=== PATIENT | female | born 1960 | race Caucasian/White ===

== ENCOUNTER 2020-07-05 12:49 | Outpatient (REF) | payer MEDICAID, SELFPAY ==
--- NOTE | ~2020-07-05 | MM_ITS ---
EXAMINATION: MM SCREENING DIGITAL BREAST TOMOSYNTHESIS, BILATERAL CLINICAL INFORMATION: Screening. Asymptomatic. Left lumpectomy for breast cancer 2007. Due for yearly. COMPARISON: Mammography: 10/28/2018, 10/21/2017, 05/13/2017, 10/19/2016, 10/12/2015 TECHNIQUE: Digital breast tomosynthesis is performed in both the craniocaudal and mediolateral oblique views along with computer-aided detection (CAD). Synthesized 2D images are generated from the tomosynthesis. FINDINGS: There are scattered areas of fibroglandular density (ACR BI-RADS breast composition Category b). There are no significant masses, abnormal calcifications, or other abnormalities. There is mild reduced breast size, mild stable scarring, and surgical clips left breast consistent with the clinical history. No developing density. No significant changes from prior studies. MM/MM tomosynthesis screening BI IMPRESSION: No mammographic evidence of malignancy. Stable post therapy changes left breast. ASSESSMENT: BI-RADS 2: Benign RECOMMENDATION: Routine annual mammography screening. This patient's information was entered into a reminder system with a target due date for their next mammogram.
== END 2020-07-05 12:50 | disposition home or self-care (01) ==
LOC: HO.MAMMO 12:49
PROVIDERS: PCP Nurse Practitioner Family; Visit Provider Nurse Practitioner Family
DX: Z12.31 Encounter for screening mammogram for malignant neoplasm of breast (principal)
CPT/HCPCS: 77063; 77067

== ENCOUNTER 2021-09-12 09:05 | Outpatient (REF) | payer MEDICAID, SELFPAY ==
--- NOTE | ~2021-09-12 | MM_ITS ---
EXAMINATION: MM SCREENING DIGITAL BREAST TOMOSYNTHESIS, BILATERAL CLINICAL INFORMATION: Left lumpectomy for breast cancer, 2007. Due for yearly. Screening. COMPARISON: Mammography: 07/05/2020, 10/28/2018, 10/21/2017, 05/13/2017, 10/19/2016 TECHNIQUE: Digital breast tomosynthesis is performed in both the craniocaudal and mediolateral oblique views along with computer-aided detection (CAD). Synthesized 2D images are generated from the tomosynthesis. Additional right MLO view is provided. FINDINGS: There are scattered areas of fibroglandular density (ACR BI-RADS breast composition Category b). There is no significant change from prior studies. There are post therapy changes again noted on the left with reduced breast size, surgical clips, and minor stable scarring. Neither breast shows interval mass or developing density. No abnormal calcifications. No significant changes. MM/MM tomosynthesis screening BI IMPRESSION: -No mammographic evidence of malignancy. -Post therapy changes left breast, stable. ASSESSMENT: BI-RADS 2: Benign RECOMMENDATION: Routine annual mammography screening. This patient's information was entered into a reminder system with a target due date for their next mammogram.
== END 2021-09-12 09:06 | disposition home or self-care (01) ==
LOC: HO.MAMMO 09:05
PROVIDERS: Visit Provider Internal Medicine
DX: Z12.31 Encounter for screening mammogram for malignant neoplasm of breast (principal)
CPT/HCPCS: 77063; 77067

== ENCOUNTER 2023-01-01 10:55 | Outpatient (REF) | payer MEDICAID, SELFPAY ==
--- NOTE | ~2023-01-01 | XR_ITS ---
EXAMINATION: XR ANKLE, RIGHT CLINICAL INFORMATION: Swelling Swelling for one week COMPARISON: None available. TECHNIQUE: AP, lateral, and mortise views of the right ankle. FINDINGS: There is soft tissue swelling about the ankle. The bones are intact. Alignment is anatomic. The ankle mortise is well-maintained. No erosions. Mild degenerative change of some of the tarsal-tarsal joints. There is a large posterior plantar calcaneal spur and small Achilles enthesophyte. XR/XR ankle RT min 3V IMPRESSION: 1. No acute bony abnormality. 2. Large posterior plantar calcaneal spur.
== END 2023-01-01 10:56 | disposition home or self-care (01) ==
LOC: HO.HHCX 10:55
PROVIDERS: Visit Provider Nurse Practitioner Family
DX: M25.571 Pain in right ankle and joints of right foot (principal)
CPT/HCPCS: 73610

== ENCOUNTER 2023-01-01 11:06 | Outpatient (REF) | payer MEDICAID, SELFPAY ==
[2023-01-01 13:46] LABS: Alanine Aminotransferase 25 U/L (0-31); Albumin Level 4.5 g/dL (3.5-5.0); Alkaline Phosphatase 108 U/L (39-117); Anion Gap 12 (12-20); Aspartate Amino Transferase 23 U/L (5-31); Bilirubin Total 0.2 mg/dL (0.0-1.0); Blood Urea Nitrogen 14 mg/dL (9-16); Calcium 10.1 mg/dL (8.4-10.2); Carbon Dioxide 25 mmol/L (22-29); Chloride 108 mmol/L (96-108); Cholesterol 225 mg/dL; Estimated Glomerular Filt Rate > 60; Glucose Random 84 mg/dL (60-115); HDL Cholesterol 60 mg/dL; LDL Cholesterol Calculated 147 mg/dl; Potassium 3.9 mmol/L (3.3-5.1); Sodium 141 mmol/L (135-145); Total Protein 7.4 g/dL (6.5-8.0); Triglycerides 91 mg/dL
[2023-01-01 14:06] LABS: Thyroid Stimulating Hormone 4.26 uIU/mL (0.32-4.0)
== END 2023-01-01 11:07 | disposition home or self-care (01) ==
LOC: HO.HHCL 11:06
PROVIDERS: Visit Provider Nurse Practitioner Family
DX: Z00.00 Encounter for general adult medical examination without abnormal findings (principal); E03.8 Other specified hypothyroidism
CPT/HCPCS: 36415; 80053; 80061; 84443

== ENCOUNTER 2023-02-01 15:00 | Inpatient (IN) | payer MEDICAID, OTHER, SELFPAY ==
--- NOTE | 2023-02-01 15:05 | MHC.CARE ---
Call from [facility] clinician, Mahsa, patient has been evaluated in the community (no meds x1 week and decompensated) sent to [facility] ED to wait for an inpatient psychiatric placement.
--- NOTE | 2023-02-01 15:22 | ED_ITS ---
HPI - Psych General Chief Complaint: Psychiatric Symptoms Stated Complaint: SI & HI, non med compliant Time Seen by Provider: 02/01/23 15:13 Source: patient, EMS, RN notes reviewed and old records reviewed Mode of arrival: EMS History of Present Illness HPI Narrative: 62-year-old female with a past medical history of unspecified schizophrenia presenting to the ED via EMS on Section 12 from home due to medication noncompliance, SI & HI towards family. Per EMS patient decompensates quickly. Patient denies SI at present however reports SI towards family. Denies plan. Also admits to auditory and visual hallucinations. Denies ETOH or other illicit drug use. Denies CP/ SOB, abdominal pain, nausea/vomiting Related Data Home Medications Medication Instructions Recorded Confirmed olanzapine 20 mg tablet (Zyprexa) 20 mg PO BEDTIME 02/01/23 02/01/23 trihexyphenidyl 2 mg tablet 2 mg PO BID 02/01/23 02/01/23 Allergies Allergy/AdvReac Type Severity Reaction Status Date / Time cephalexin Allergy Unknown Verified 05/13/16 00:00 metronidazole Allergy Unknown Verified 05/13/16 00:00 No Known Allergies Allergy Unverified 02/01/20 15:26 [No Known Allergies*] monohydrate Allergy Unknown Uncoded 05/13/16 00:00 Review of Systems Review of Systems: Constitutional: No Fever, No Chills, No Fatigue, No Malaise ENT/Mouth: No Ear Pain, No sore throat, No Rhinorrhea, No Swallowing Difficulty Eyes: No Eye Pain, No Swelling, No Redness Cardiovascular: No Chest Pain, No SOB Respiratory: No Cough Gastrointestinal: No Nausea, No Vomiting, No Diarrhea, No Constipation, No Abdominal pain Musculoskeletal: No joint pain, No Myalgias, No Joint Swelling Skin: No Skin Lesions, No rash Neuro: No Weakness Psych: No Anxiety/Panic, No Depression, + SI/HI/AH/VH, + Social Issues Yes all other systems are reviewed and are negative Constitutional: Constitutional: Reports as per HPI [facility] Past Medical History Attestation statement: The following information was validated with the patient. Source: old records reviewed Social History Social History Alcohol intake: former Smoked in Last 30 Days: No Use of substances other than those prescribed or required for medical reasons: No Advance Directives: No Advance Directives Information Provided: No Physical Exam Vital Signs: Vital Signs: Last Vital Signs Temp 97 F 02/01/23 15:39 Pulse 73 02/01/23 15:39 Resp 18 02/01/23 15:39 BP 170/72 H 02/01/23 15:39 Pulse Ox 99 02/01/23 15:39 O2 Del Method Room Air 02/01/23 15:39 BMI result Body Mass Index 30.8 Const: General: cooperative, healthy appearing and no acute distress Orientation/consciousness: patient oriented x3 Limitations: no limitations HEENT: Head: Yes normal to inspection and Yes atraumatic Ears: hearing grossly normal bilaterally General nose exam: Normal external nose present Face and sinus: Yes normal facial exam Eyes: General: appearance normal, both eyes and all related structures EOM: EOMs intact bilaterally Neck: Neck: Yes normal visual inspection and Yes no meningeal signs Resp: Effort & Inspection: normal respiratory effort and no respiratory distress Cardio: Rate: regular rate GI: Inspection: Yes normal to inspection Palpation (GI): Soft to palpation, nontender, no guarding and not rigid Skin: Rashes: no rashes Wounds: no wounds Neuro: General: patient oriented x3, tone normal, moves all extremities, no meningeal signs, no focal motor deficits and CN's II-XI intact bilaterally Cranial nerves: Yes CN's II-XII intact bilaterally Extrem: General: Yes normal to inspection Psych: Attitude: cooperative Thought content: suicidality, Homicidality present and Hallucination(s) present Insight: Poor insight present (Psych) Course Course Course Narrative: -1630-- ED care transferred to [facility] pending labs, tox screen, and CARE team consult Medical Decision Making Medical Decision Making MDM Narrative: 62-year-old female with a past medical history of unspecified schizophrenia presenting to the ED via EMS on Section 12 from home due to medication noncompliance, SI & HI towards family. On exam vital signs stable, NAD, talking to self/responding to hallucinations during evaluation, denies SI present, admits to HI/AH/VH. Concern for medication noncompliance vs schizophrenia. rule out organic causes plan: Labs, tox screen, UA, CARE team consult Please refer to course for remaining clinical decision making, interpretation of labs/imaging results, and discussions with consultants and/or family members. Differential Diagnosis Differential Diagnoses: The differential diagnosis associated with the p resentation includes As above Admission/Observation Consideration of admission/observation: Escalation of care including admiss ion/observation considered Consult Healthcare Provider Management of the patient was discussed with: Behavioral Health Provider Lab Data [facility] Lab Attestation statement: I reviewed the patient's lab results. Labs: Lab Results 02/01/23 02/01/23 Range/Units 16:03 16:09 Urine Color Yellow Cancelled Urine Appearance Clear Cancelled Urine pH 5.5 Cancelled (5.0-9.0) Ur Specific [place] 1.010 Cancelled (1.005-1.025) Urine Protein Negative Cancelled (Neg-Trace) mg/dL Urine Glucose (UA) Negative Cancelled (Negative) mg/dL Urine Ketones Negative Cancelled (Negative) mg/dL Urine Blood Negative Cancelled (Negative) Urine Nitrite Negative Cancelled (Negative) Ur Leukocyte Esterase Trace H Cancelled (Negative) Radiology Impression Discussion of test interpretation with radiology: I have reviewed the radiologist's reading. Independent Historian Clinical information obtained from an independent historian. History obtained from or confirmed by: EMS External Record Review External record reviewed: Inpatient record, Office record, Outpatient record, Prior outpatient labs, Prior outpatient radiology, Primary care record and Outside ED record Tests considered The following testing was considered but not selected: As above Chronic Conditions Patient?s care impacted by: Other ( schizophrenia) Social Determinants Patient?s care significantly limited by Social Determinants of Health including: Problems related to primary support group and Other Social Determinant of Health Discharge Plan Discharge Clinical Impression: Chronic schizophrenia, Homicidal ideations, Hallucinations Patient Disposition: Still a Patient Prescriptions: No Action trihexyphenidyl 2 mg tablet 2 mg PO BID olanzapine [Zyprexa] 20 mg tablet 20 mg PO BEDTIME Interventions: [place]-Suicide Risk Severity Scale Last Done: 02/01/23 15:41
[2023-02-01 15:35] VITALS: BP 170/84; PULSE 72; O2SAT 99
--- NOTE | 2023-02-01 15:37 | PC.NURSE ---
Patient arrived from ems on a section 12 after not taking medications x 1 week. Per family patient decompensates quickly when she doesn't take her meds. Reports SI and HI. Reports wanting to harm neighbors that live upstairs from her. Reports having auditory and visual hallucinations. Denies pain or discomfort.
[2023-02-01 15:39] VITALS: BP 170/72; PULSE 73; RESP 18; TEMP 36.1; O2SAT 99; BMI 30.8
--- NOTE | 2023-02-01 15:59 | PC.NURSE ---
Attempted to call emergency contact, Francesca stating doesnt speak Indonesian, call placed to adjunct instructor chemistry services to help translate
[2023-02-01 16:20] LABS: Appearance Urine Clear; Color Urine Yellow; Glucose Urine UA Negative (Negative); Leukocyte Esterase Urine Trace (Negative); Nitrite Urine Negative (Negative); PH 5.5 (5.0-9.0); UMIC TRIGGER UACC YES; Urine Blood Negative (Negative); Urine Ketones Negative (Negative); Urine Protein Negative (Neg-Trace)
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
[2023-02-01 16:26] LABS: Amphetamine Screen Urine Not Detected (Not Detect); Bacteria Urine None Seen (None Seen); Barbiturates, Urine Not Detected (Not Detect); Benzodiazepines Screen Urine Not Detected (Not Detect); Cannabinoid Screen Urine Not Detected (Not Detect); Cocaine Screen Urine Not Detected (Not Detect); Fentanyl, urine Not Detected (Not Detect); Hyaline Casts Urine 0-2 /LPF (0-2); Opiate Screen Urine Not Detected (Not Detect); Phencyclidine Screen Urine Not Detected (Not Detect); RBC Urine 0-2 /HPF (0-2); Squamous Epithelial Cell Urine 0-2 /HPF (0-2); WBC Urine 0-5 /HPF (0-5)
[2023-02-01 16:34] LABS: MANUAL DIFF FLAG NO
[2023-02-01 16:45] LABS: Basophils Percent Auto 0.4 % (0-2); Eosinophils Absolute Auto 0.1 X10*3/uL (0.0-0.4); Eosinophils Percent Auto 1.7 % (0-4); Hematocrit 44.1 % (37.0-47.0); Imm Gran Abs Auto 0.03 X10*3/uL (0.00-0.03); Imm Gran Pct Auto 0.4 % (0.0-0.4); Lymphocytes Absolute Auto 2.1 X10*3/uL (1.2-4.9); Lymphocytes Percent Auto 28.4 % (20-40); Mean Corpuscular HGB Conc 31.7 g/dl (31.0-35.0); Mean Corpuscular Volume 75.6 fL (80.0-98.0); Mean Platelet Volume 9.8 fL (9.4-12.3); Monocytes Absolute Auto 0.4 X10*3/uL (0.1-1.2); Monocytes Percent Auto 4.8 % (2-11); Neutrophils Absolute Auto 4.8 x10*3/uL (2.0-8.3); Neutrophils Percent Auto 64.3 % (45-73); Platelet Count 320 X10*3/uL (160-400); Red Blood Count 5.83 X10*6/uL (4.20-5.50); White Blood Count 7.4 X10*3/uL (4.8-10.8)
[2023-02-01 16:53] LABS: Alanine Aminotransferase 24 U/L (0-31); Albumin Level 4.6 g/dL (3.5-5.0); Alkaline Phosphatase 97 U/L (39-117); Anion Gap 11 (12-20); Aspartate Amino Transferase 24 U/L (5-31); Bilirubin Total 0.2 mg/dL (0.0-1.0); Blood Urea Nitrogen 10 mg/dL (9-16); Calcium 9.9 mg/dL (8.4-10.2); Carbon Dioxide 27 mmol/L (22-29); Chloride 105 mmol/L (96-108); Estimated Glomerular Filt Rate > 60; Ethanol < 10 mg/dL; Glucose Random 128 mg/dL (60-115); Potassium 3.5 mmol/L (3.3-5.1); Sodium 139 mmol/L (135-145); Total Protein 7.5 g/dL (6.5-8.0)
[2023-02-01 16:54] LABS: Acetaminophen LAB < 17 mcg/mL (<30); Salicylate < 5.0 mg/dL (15-30)
--- NOTE | 2023-02-01 16:54 | PC.NURSE ---
Patient with non-pitting edema to right ankle, denies pain. Patient with dirt on bottom of both feet. Patient reports does not re call when she showered last
[2023-02-01 21:49] LABS: COVID-19 Test Negative (Negative); IDNOW Serial# BCCEAD1C
--- NOTE | 2023-02-02 | ECG_ITS ---
Test Reason : ASSESS QT INTERVAL Blood Pressure : / mmHG Vent. Rate : 068 BPM Atrial Rate : 068 BPM P-R Int : 160 ms QRS Dur : 094 ms QT Int : 406 ms P-R-T Axes : 051 -16 -05 degrees QTc Int : 431 ms Normal sinus rhythm Incomplete right bundle branch block Borderline ECG When compared with ECG of 15-NOV-2009 13:06, Nonspecific T wave abnormality is no longer Present Referred By: Warren Candelaria Electronically Signed By:HORTENCIA COFFMAN
--- NOTE | 2023-02-02 05:46 | PC.NURSE ---
Patient slept through the night, no distress observed/reported, behavior non concerning, disposition per [facility] is section 12 inpatient bed search, labs completed/resulted, medication re completed/pending provider's approval, Pre-accepted to for 02/02/23 per care team, VSS, will continue to monitor.
[2023-02-02 06:50] VITALS: BP 130/60; PULSE 55; RESP 17; TEMP 36.4; O2SAT 99
--- NOTE | 2023-02-02 07:25 | PC.NURSE ---
patient appears to remain asleep at present respirations are even and unlabored patient appears in no distress
[2023-02-02 13:52] VITALS: BP 140/61; PULSE 86; RESP 16; TEMP 36.6; O2SAT 97
[2023-02-02 14:00] VITALS: BP 131/76; PULSE 79; RESP 16; TEMP 36.4; O2SAT 96
[2023-02-02 18:00] VITALS: BP 143/70; PULSE 79; RESP 18; TEMP 36.2; O2SAT 98
[2023-02-02] MEDS: Trihexyphenidyl HCL 2 MG TABLET PO (22:18)
[2023-02-02] MEDS: traZODone HCL 50 MG TABLET PO (22:18)
[2023-02-02] MEDS: OLANZapine 10 MG TABLET 20 MG PO (22:18)
[2023-02-03 08:09] LABS: Alanine Aminotransferase 17 U/L (0-31); Albumin Level 3.8 g/dL (3.5-5.0); Alkaline Phosphatase 78 U/L (39-117); Anion Gap 11 (12-20); Aspartate Amino Transferase 18 U/L (5-31); Bilirubin Total 0.3 mg/dL (0.0-1.0); Blood Urea Nitrogen 13 mg/dL (9-16); Calcium 9.1 mg/dL (8.4-10.2); Carbon Dioxide 24 mmol/L (22-29); Chloride 111 mmol/L (96-108); Cholesterol 193 mg/dL (<200); Creatinine Clr Calc Pharmacy 91.4; Estimated Glomerular Filt Rate > 60; Glucose Fasting 92 mg/dL (60-99); HDL Cholesterol 52 mg/dL (>40); LDL Cholesterol Calculated 125 mg/dL (<100); Potassium 4.2 mmol/L (3.3-5.1); Sodium 142 mmol/L (135-145); Total Protein 6.4 g/dL (6.5-8.0); Triglycerides 82 mg/dL (<150)
[2023-02-03] MEDS: Trihexyphenidyl HCL 2 MG TABLET PO ×2 (08:44→20:47)
[2023-02-03 08:47] VITALS: BP 103/62; PULSE 57; RESP 16; TEMP 36.5; O2SAT 95
[2023-02-03 16:04] VITALS: BP 137/61; PULSE 81; RESP 16; TEMP 36.5; O2SAT 99
--- NOTE | 2023-02-03 18:36 | HO.PSYADMNOT ---
HPI Date of Service: 02/03/23 Chief Complaint: schizophrenia hallucinations hi toward family Sources of Information: patient interviewed, chart reviewed and crisis/core team assessment reviewed HPI Subjective Notes: Day Warning and Conditional Voluntary Narrative: Seen with physician office assistant Patient is a 62-year-old female, Beninese-speaking only, with history of schizophrenia who presents for dysregulated behavior, SI and HI, delusional thoughts in the face of going off her medication. Patient reports that she stop taking her pills and so the visiting nurse called the ambulance... [employer] Operator... She says I through the pills away...not taking them... I get scared and I do not take them... She had trouble saying what she was scared about, but mentioned that her mother bothers her at night while she sleeping and she does not like it; she then said that there was something on her head that made her feel scared, touching her head... Care team note reports that in the community patient said she wanted to shoot [her] mother and daughter... And also was banging her head on the wall a few times. Patient acknowledged that she had homicidal ideation towards her mother but no longer has them at all; she said she did have suicidal thoughts but no longer has them at all. She reports auditory hallucinations but said it is only mumbles and she cannot make out what things are said. Patient is amenable to restarting her Zyprexa now. Past Psychiatric History: History of past psychiatric hospitalizations; history of non adherence with medication and decompensation Medical Evaluation Reviewed: Yes PMFSH Family History: Deferred; patient limited historian Social History: Patient's mother is supportive and involved Substance History: Denied Trauma History: Deferred; patient limited historian Diagnostics Vital Signs (24Hr): Vital Signs - 24 hr 02/03/23 08:47 02/03/23 16:04 Temperature 97.7 F 97.7 F Pulse Rate 57 81 Respiratory Rate 16 16 Blood Pressure 103/62 137/61 Pulse Oximetry 95 99 Oxygen Delivery Method Room Air Room Air BMI result Body Mass Index 30.8 Labs 02/01/23 16:27 02/03/23 07:18 Labs: Laboratory Results - last 48 hr 02/01/23 02/03/23 21:14 07:18 Sodium 142 Potassium 4.2 Chloride 111 H Carbon Dioxide 24 Anion Gap 11 L BUN 13 Creatinine 0.70 Estim Creat Clear Calc 91.4 Estimated GFR > 60 Fasting Glucose 92 Calcium 9.1 D Total Bilirubin 0.3 AST 18 ALT 17 Alkaline Phosphatase 78 Total Protein 6.4 L Albumin 3.8 Triglycerides 82 Cholesterol 193 LDL Cholesterol, Calc 125 H HDL Cholesterol 52 COVID-19 ([facility]) Negative COVID-19 Clin Com See Note Meds/Allergies Meds Home Medications Medication Instructions Recorded Confirmed Type olanzapine 20 mg tablet (Zyprexa) 20 mg PO BEDTIME 02/01/23 02/01/23 History trihexyphenidyl 2 mg tablet 2 mg PO BID 02/01/23 02/01/23 History Allergies Allergies Allergy/AdvReac Type Severity Reaction Status Date / Time cephalexin Allergy Unknown Verified 05/13/16 00:00 metronidazole Allergy Unknown Verified 05/13/16 00:00 No Known Allergies Allergy Unverified 02/01/20 15:26 [No Known Allergies*] monohydrate Allergy Unknown Uncoded 05/13/16 00:00 Mental Status Exam Mental Status Exam Narrative: Pt is alert and oriented; behavior is cooperative, friendly and calm; some chorea type arm movements; patient is not in distress; dressed in casual attire with unkempt hair but adequate hygiene; mood is described as good though affect blunted; eye contact appropriate; Speech is normal rate, volume and prosody and not pressured; no psychomotor agitation/retardation present; thought process is goal oriented to some degree but also gets disorganized, making extraneous comments; Thought content is somewhat vacuous; some delusional/paranoid thinking; denies any SI/HI. Internally preoccupied; positive for Patients insight and judgment impaired Assessment & Plan Assessment & Plan (1) Chronic schizophrenia: Status: Acute Code(s): F20.9 - Schizophrenia, unspecified Plan Seen with physician office assistant Patient is a 62-year-old female, Beninese-speaking only, with history of schizophrenia who presents for dysregulated behavior, SI and HI, delusional thoughts in the face of going off her medication. Patient reports that she stop taking her pills and so the visiting nurse called the ambulance... [employer] Operator... She says I through the pills away...not taking them... I get scared and I do not take them... She had trouble saying what she was scared about, but mentioned that her mother bothers her at night while she sleeping and she does not like it; she then said that there was something on her head that made her feel scared, touching her head... Care team note reports that in the community patient said she wanted to shoot [her] mother and daughter... And also was banging her head on the wall a few times. Patient acknowledged that she had homicidal ideation towards her mother but no longer has them at all; she said she did have suicidal thoughts but no longer has them at all. She reports auditory hallucinations but said it is only mumbles and she cannot make out what things are said. Patient is amenable to restarting her Zyprexa now. Patient amenable to team gather collateral Impression; chronic psychotic illness with history of noncompliance and decompensation causing current presentation. Will restart patient on Zyprexa; if possible will see if can find out medication trials and whether not a long-acting injectable is an option Plan: CV Q 15 minute checks Restart Zyprexa 20 mg q.h.s. restart Trihexphenidyl 2mg BID Gather collateral Patient educated on: diagnosis and medication risk/benefits Informed Consent: understands and further education needed Reason for continued inpatient stay Substantial Risk for: rapid decompensation Statement Statement: I have reviewed the history and physical and performed a pertinent examination on my patient. No changes have occurred unless specified. If the History and Physical was not performed prior to admission, the Hospitalist's service will be consulted for completing the admission physical. Time Spent With Patient Time: Total time managing care of this patient today ____ minutes.
[2023-02-03] MEDS: OLANZapine 10 MG TABLET 20 MG PO (20:47)
[2023-02-04 07:00] VITALS: BMI 29.4
[2023-02-04] MEDS: Trihexyphenidyl HCL 2 MG TABLET PO ×2 (08:52→19:43)
[2023-02-04 08:55] VITALS: BP 142/67; PULSE 64; RESP 18; TEMP 36.3; O2SAT 96
--- NOTE | 2023-02-04 10:45 | P.PNPSI_ITS ---
Subjective Subjective Date of Service: 02/04/23 Reason For Visit: schizophrenia hallucinations hi toward family Interim History: Saw with electromechanical assembler Met with patient; discussed with team Patient reports she is feeling good today and better than yesterday. She says she has no thoughts of hitting anyone, hurting herself or anyone else. She denies any auditory hallucinations. Discussed having a VNA and patient said it was helpful. Patient's daughter called and spoke with perinatal social worker. Said that her mother is normally stable, functional able to live on her own in the community when she was having a visiting nurse come and deliver medications daily up. She reports that a month or so ago VNA started putting her medications in a lock box and since then her mother has started to decompensate; he came to her daughter's attention that patient was taking medication and throwing them outside. She says that aside from this incident where her mother expressed violent thoughts, she has never harmed anyone or been aggressive with anyone or herself. Mental Status Exam Mental Status Exam Narrative: Pt is alert and oriented; behavior is cooperative, friendly and calm; some chorea type arm movements; patient is not in distress; dressed in casual attire with unkempt hair but adequate hygiene; mood is described as good though affect blunted; eye contact appropriate; Speech is normal rate, volume and prosody and not pressured; no psychomotor agitation/retardation present; thought process is goal oriented; today no extraneous comments made; Thought content is somewhat vacuous; no delusional thinking expressed; denies any SI/HI. Denies AVH Patients insight and judgment impaired but improving Diagnostics Vital Signs (24Hr): Vital Signs - 24 hr 02/03/23 16:04 02/04/23 08:55 Temperature 97.7 F 97.3 F Pulse Rate 81 64 Respiratory Rate 16 18 Blood Pressure 137/61 142/67 H Pulse Oximetry 99 96 Oxygen Delivery Method Room Air Room Air BMI result Body Mass Index 29.4 Labs 02/01/23 16:27 02/03/23 07:18 Labs: Laboratory Results - last 48 hr 02/03/23 07:18 Sodium 142 Potassium 4.2 Chloride 111 H Carbon Dioxide 24 Anion Gap 11 L BUN 13 Creatinine 0.70 Estim Creat Clear Calc 91.4 Estimated GFR > 60 Fasting Glucose 92 Calcium 9.1 D Total Bilirubin 0.3 AST 18 ALT 17 Alkaline Phosphatase 78 Total Protein 6.4 L Albumin 3.8 Triglycerides 82 Cholesterol 193 LDL Cholesterol, Calc 125 H HDL Cholesterol 52 Medications Medications Current Medications Acetaminophen (Acetaminophen 325 Mg Tablet) 650 mg PO Q6H PRN PRN Reason: Headache/Pain Mild Scale (1-3) Al Hydroxide/Mg Hydroxide (Magnesium Hydrox/Alum Hydrox 30 Ml Oral.Susp) 30 ml PO Q6H PRN PRN Reason: Heartburn/Nausea Hydroxyzine HCl (Hydroxyzine Hcl 25 Mg Tablet) 25 mg PO Q6H PRN PRN Reason: Anxiety Magnesium Hydroxide (Milk Of Magnesia 30 Ml Oral.Susp) 30 ml PO DAILY PRN PRN Reason: Constipation Olanzapine (Olanzapine 10 Mg Tablet) 20 mg PO BEDTIME NICKOLAS Last Admin: 02/03/23 20:47 Dose: 20 mg Trazodone HCl (Trazodone Hcl 50 Mg Tablet) 50 mg PO BEDTIME MRX1 PRN PRN Reason: Insomnia Last Admin: 02/02/23 22:18 Dose: 50 mg Trihexyphenidyl HCl (Trihexyphenidyl Hcl 2 Mg Tablet) 2 mg PO BID NICKOLAS Last Admin: 02/04/23 08:52 Dose: 2 mg Allergies Allergies Allergy/AdvReac Type Severity Reaction Status Date / Time cephalexin Allergy Unknown Verified 05/13/16 00:00 metronidazole Allergy Unknown Verified 05/13/16 00:00 No Known Allergies Allergy Unverified 02/01/20 15:26 [No Known Allergies*] monohydrate Allergy Unknown Uncoded 05/13/16 00:00 Assessment & Plan Assessment & Plan (1) Chronic schizophrenia: Status: Acute Code(s): F20.9 - Schizophrenia, unspecified Plan Seen with electromechanical assembler Patient is a 62-year-old female, Arabic-speaking only, with history of schizophrenia who presents for dysregulated behavior, SI and HI, delusional thoughts in the face of going off her medication. Patient reports that she stop taking her pills and so the visiting nurse called the ambulance... Pharmacy Graduate Intern... She says I through the pills away...not taking them... I get scared and I do not take them... She had trouble saying what she was scared about, but mentioned that her mother bothers her at night while she sleeping and she does not like it; she then said that there was something on her head that made her feel scared, touching her head... Care team note reports that in the community patient said she wanted to shoot [her] mother and daughter... And also was banging her head on the wall a few times. Patient acknowledged that she had homicidal ideation towards her mother but no longer has them at all; she said she did have suicidal thoughts but no longer has them at all. She reports auditory hallucinations but said it is only mumbles and she cannot make out what things are said. Patient is amenable to restarting her Zyprexa now. Patient amenable to team gather collateral Impression; chronic psychotic illness with history of noncompliance and decompensation causing current presentation. Will restart patient on Zyprexa; if possible will see if can find out medication trials and whether not a long-acting injectable is an option Hospital course: 02/04 Patient reports she is feeling good today and better than yesterday. She says she has no thoughts of hitting anyone, hurting herself or anyone else. She denies any auditory hallucinations. Discussed having a VNA and patient said it was helpful. Patient's daughter called and spoke with perinatal social worker. Said that her mother is normally stable, functional able to live on her own in the community when she was having a visiting nurse come and deliver medications daily up. She reports that a month or so ago VNA started putting her medications in a lock box and since then her mother has started to decompensate; he came to her daughter's attention that patient was taking medication and throwing them outside. She says that aside from this incident where her mother expressed violent thoughts, she has never harmed anyone or been aggressive with anyone or herself. Plan: CV Q 15 minute checks Continue Zyprexa 20 mg q.h.s. Continue Trihexphenidyl 2mg BID Dispo planned Patient educated on: diagnosis and medication risk/benefits Informed Consent: understands and further education needed Reason for continued inpatient stay Substantial Risk for: rapid decompensation Time Spent With Patient Time: Total time managing care of this patient today ____ minutes.
[2023-02-04 17:23] VITALS: BP 128/79; PULSE 79; RESP 16; TEMP 36.1; O2SAT 97
[2023-02-04] MEDS: OLANZapine 10 MG TABLET 20 MG PO (19:42)
[2023-02-04] MEDS: Milk of Magnesia 30 ML ORAL.SUSP PO (20:04)
[2023-02-05 06:00] VITALS: BP 127/70; PULSE 87; RESP 16; TEMP 36.5; O2SAT 98
[2023-02-05] MEDS: Trihexyphenidyl HCL 2 MG TABLET PO ×2 (08:40→20:43)
--- NOTE | 2023-02-05 09:42 | P.PNPSI_ITS ---
Subjective Subjective Date of Service: 02/05/23 Reason For Visit: schizophrenia hallucinations hi toward family Interim History: Met with patient; discussed with team Seen with marketing planning manager Patient said that she is good and has no complaints or requests. She says that she auditory hallucinations are gone. Discussed events prior to admission and patient says that she remembers being upset saying it was over not taking the pills and not taking a shower. She says her mother was trying to make her do both. Patient says she feels much better now. Note she has showered regularly and attending to all ADLs. Mental Status Exam Mental Status Exam Narrative: Pt is alert and oriented; behavior is cooperative, friendly and calm; some chorea type arm movements; patient is not in distress; dressed in casual attire with unkempt hair but adequate hygiene; mood is described as good though affect blunted; eye contact appropriate; Speech is normal rate, volume and prosody and not pressured; no psychomotor agitation/retardation present; thought process is goal oriented; today no extraneous comments made; Thought content is somewhat vacuous; no delusional thinking expressed; denies any SI/HI. Denies AVH Patients insight and judgment impaired but improving and likely getting close to baseline. Diagnostics Vital Signs (24Hr): Vital Signs - 24 hr 02/04/23 17:23 02/05/23 06:00 Temperature 97 F 97.7 F Pulse Rate 79 87 Respiratory Rate 16 16 Blood Pressure 128/79 127/70 Pulse Oximetry 97 98 Oxygen Delivery Method Room Air Room Air BMI result Body Mass Index 29.4 Labs 02/01/23 16:27 02/03/23 07:18 Medications Medications Current Medications Acetaminophen (Acetaminophen 325 Mg Tablet) 650 mg PO Q6H PRN PRN Reason: Headache/Pain Mild Scale (1-3) Al Hydroxide/Mg Hydroxide (Magnesium Hydrox/Alum Hydrox 30 Ml Oral.Susp) 30 ml PO Q6H PRN PRN Reason: Heartburn/Nausea Hydroxyzine HCl (Hydroxyzine Hcl 25 Mg Tablet) 25 mg PO Q6H PRN PRN Reason: Anxiety Magnesium Hydroxide (Milk Of Magnesia 30 Ml Oral.Susp) 30 ml PO DAILY PRN PRN Reason: Constipation Last Admin: 02/04/23 20:04 Dose: 30 ml Olanzapine (Olanzapine 10 Mg Tablet) 20 mg PO BEDTIME NICKOLAS Last Admin: 02/04/23 19:42 Dose: 20 mg Trazodone HCl (Trazodone Hcl 50 Mg Tablet) 50 mg PO BEDTIME MRX1 PRN PRN Reason: Insomnia Last Admin: 02/02/23 22:18 Dose: 50 mg Trihexyphenidyl HCl (Trihexyphenidyl Hcl 2 Mg Tablet) 2 mg PO BID NICKOLAS Last Admin: 02/05/23 08:40 Dose: 2 mg Allergies Allergies Allergy/AdvReac Type Severity Reaction Status Date / Time cephalexin Allergy Unknown Verified 05/13/16 00:00 metronidazole Allergy Unknown Verified 05/13/16 00:00 No Known Allergies Allergy Unverified 02/01/20 15:26 [No Known Allergies*] monohydrate Allergy Unknown Uncoded 05/13/16 00:00 Assessment & Plan Assessment & Plan (1) Chronic schizophrenia: Status: Acute Code(s): F20.9 - Schizophrenia, unspecified Plan Seen with marketing planning manager Patient is a 62-year-old female, Georgian-speaking only, with history of schizophrenia who presents for dysregulated behavior, SI and HI, delusional thoughts in the face of going off her medication. Patient reports that she stop taking her pills and so the visiting nurse called the ambulance... Grain Commodity Manager... She says I through the pills away...not taking them... I get scared and I do not take them... She had trouble saying what she was scared about, but mentioned that her mother bothers her at night while she sleeping and she does not like it; she then said that there was something on her head that made her feel scared, touching her head... Care team note reports that in the community patient said she wanted to shoot [her] mother and daughter... And also was banging her head on the wall a few times. Patient acknowledged that she had homicidal ideation towards her mother but no longer has them at all; she said she did have suicidal thoughts but no longer has them at all. She reports auditory hallucinations but said it is only mumbles and she cannot make out what things are said. Patient is amenable to restarting her Zyprexa now. Patient amenable to team gather collateral Impression; chronic psychotic illness with history of noncompliance and decompensation causing current presentation. Will restart patient on Zyprexa; if possible will see if can find out medication trials and whether not a long-acting injectable is an option Hospital course: 02/04 Patient reports she is feeling good today and better than yesterday. She says she has no thoughts of hitting anyone, hurting herself or anyone else. She denies any auditory hallucinations. Discussed having a VNA and patient said it was helpful. Patient's daughter called and spoke with social contact worker. Said that her mother is normally stable, functional able to live on her own in the community when she was having a visiting nurse come and deliver medications daily up. She reports that a month or so ago VNA started putting her medications in a lock box and since then her mother has started to decompensate; he came to her daughter's attention that patient was taking medication and throwing them outside. She says that aside from this incident where her mother expressed violent thoughts, she has never harmed anyone or been aggressive with anyone or herself. 02/04 patient pleasant and calm; denies AVH; denies SI/HI. Says she is starting to feel back to her regular self. Still very reticent and does not engage much. Seems likely she is approaching baseline however will need to get collateral. Will start dispo planning. Patient will need a VNA upon return to the community. It seems that she is willing to take medications when the given to her however if left on her own, does not take them and decompensates. Plan: CV Q 15 minute checks Continue Zyprexa 20 mg q.h.s. Continue Trihexphenidyl 2mg BID Dispo planned Patient educated on: diagnosis and medication risk/benefits Informed Consent: understands and further education needed Reason for continued inpatient stay Substantial Risk for: stable for discharge Time Spent With Patient Time: Total time managing care of this patient today ____ minutes.
[2023-02-05] MEDS: traZODone HCL 50 MG TABLET PO (20:42)
[2023-02-05] MEDS: OLANZapine 10 MG TABLET 20 MG PO (20:42)
[2023-02-05 20:45] VITALS: BP 142/69; PULSE 61; TEMP 36.3
[2023-02-05] MEDS: Acetaminophen 325 MG TABLET 650 MG PO (20:47)
[2023-02-06 06:00] VITALS: BP 122/57; PULSE 61; RESP 18; TEMP 36.1; O2SAT 99
[2023-02-06] MEDS: Trihexyphenidyl HCL 2 MG TABLET PO ×2 (08:42→20:45)
--- NOTE | 2023-02-06 11:17 | P.PNPSI_ITS ---
Subjective Subjective Date of Service: 02/06/23 Reason For Visit: schizophrenia hallucinations hi toward family Interim History: Met with patient; discussed with team Patient said that she is good and has no complaints or requests. She says that she auditory hallucinations are gone. Patient says she feels much better now. Note she has showered regularly and attending to all ADLs. Review of Systems Review of Systems Constitutional: No Fever, No Chills, No Fatigue, No Malaise ENT/Mouth: No Ear Pain, No sore throat, No Rhinorrhea, No Swallowing Difficulty Eyes: No Eye Pain, No Swelling, No Redness Cardiovascular: No Chest Pain, No SOB Respiratory: No Cough Gastrointestinal: No Nausea, No Vomiting, No Diarrhea, No Constipation, No Abdominal pain Musculoskeletal: No joint pain, No Myalgias, No Joint Swelling Skin: No Skin Lesions, No rash Neuro: No Weakness Psych: No Anxiety/Panic, No Depression, + SI/HI/AH/VH, + Social Issues Yes all other systems are reviewed and are negative Constitutional: Reports as per HPI Mental Status Exam Mental Status Exam Narrative: Pt is alert and oriented; behavior is cooperative, friendly and calm; some chorea type arm movements; patient is not in distress; dressed in casual attire with unkempt hair but adequate hygiene; mood is described as good though affect blunted; eye contact appropriate; Speech is normal rate, volume and prosody and not pressured; no psychomotor agitation/retardation present; thought process is goal oriented; today no extraneous comments made; Thought content is somewhat vacuous; no delusional thinking expressed; denies any SI/HI. Denies AVH Patients insight and judgment impaired but improving and likely getting close to baseline. Diagnostics Vital Signs (24Hr): Vital Signs - 24 hr 02/05/23 20:45 02/06/23 06:00 Temperature 97.3 F 96.9 F Pulse Rate 61 61 Respiratory Rate 18 Blood Pressure 142/69 H 122/57 L Pulse Oximetry 99 Oxygen Delivery Method Room Air BMI result Body Mass Index 29.4 Labs 02/01/23 16:27 02/03/23 07:18 Medications Medications Current Medications Acetaminophen (Acetaminophen 325 Mg Tablet) 650 mg PO Q6H PRN PRN Reason: Headache/Pain Mild Scale (1-3) Last Admin: 02/05/23 20:47 Dose: 650 mg Al Hydroxide/Mg Hydroxide (Magnesium Hydrox/Alum Hydrox 30 Ml Oral.Susp) 30 ml PO Q6H PRN PRN Reason: Heartburn/Nausea Hydroxyzine HCl (Hydroxyzine Hcl 25 Mg Tablet) 25 mg PO Q6H PRN PRN Reason: Anxiety Magnesium Hydroxide (Milk Of Magnesia 30 Ml Oral.Susp) 30 ml PO DAILY PRN PRN Reason: Constipation Last Admin: 02/04/23 20:04 Dose: 30 ml Olanzapine (Olanzapine 10 Mg Tablet) 20 mg PO BEDTIME NICKOLAS Last Admin: 02/05/23 20:42 Dose: 20 mg Trazodone HCl (Trazodone Hcl 50 Mg Tablet) 50 mg PO BEDTIME MRX1 PRN PRN Reason: Insomnia Last Admin: 02/05/23 20:42 Dose: 50 mg Trihexyphenidyl HCl (Trihexyphenidyl Hcl 2 Mg Tablet) 2 mg PO BID NICKOLAS Last Admin: 02/06/23 08:42 Dose: 2 mg Allergies Allergies Allergy/AdvReac Type Severity Reaction Status Date / Time cephalexin Allergy Unknown Verified 05/13/16 00:00 metronidazole Allergy Unknown Verified 05/13/16 00:00 No Known Allergies Allergy Unverified 02/01/20 15:26 [No Known Allergies*] monohydrate Allergy Unknown Uncoded 05/13/16 00:00 Assessment & Plan Assessment & Plan (1) Chronic schizophrenia: Status: Acute Code(s): F20.9 - Schizophrenia, unspecified Plan Seen with tax preparer Patient is a 62-year-old female, Haitian-speaking only, with history of schizophrenia who presents for dysregulated behavior, SI and HI, delusional thoughts in the face of going off her medication. Patient reports that she stop taking her pills and so the visiting nurse called the ambulance... 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 She says I through the pills away...not taking them... I get scared and I do not take them... She had trouble saying what she was scared about, but mentioned that her mother bothers her at night while she sleeping and she does not like it; she then said that there was something on her head that made her feel scared, touching her head... Care team note reports that in the community patient said she wanted to shoot [her] mother and daughter... And also was banging her head on the wall a few times. Patient acknowledged that she had homicidal ideation towards her mother but no longer has them at all; she said she did have suicidal thoughts but no longer has them at all. She reports auditory hallucinations but said it is only mumbles and she cannot make out what things are said. Patient is amenable to restarting her Zyprexa now. Patient amenable to team gather collateral Impression; chronic psychotic illness with history of noncompliance and decompensation causing current presentation. Will restart patient on Zyprexa; if possible will see if can find out medication trials and whether not a long-acting injectable is an option Hospital course: 02/04 Patient reports she is feeling good today and better than yesterday. She says she has no thoughts of hitting anyone, hurting herself or anyone else. She denies any auditory hallucinations. Discussed having a VNA and patient said it was helpful. Patient's daughter called and spoke with social science research assistant. Said that her mother is normally stable, functional able to live on her own in the community when she was having a visiting nurse come and deliver medications daily up. She reports that a month or so ago VNA started putting her medications in a lock box and since then her mother has started to decompensate; he came to her daughter's attention that patient was taking medication and throwing them outside. She says that aside from this incident where her mother expressed violent thoughts, she has never harmed anyone or been aggressive with anyone or herself. 02/04 patient pleasant and calm; denies AVH; denies SI/HI. Says she is starting to feel back to her regular self. Still very reticent and does not engage much. Seems likely she is approaching baseline however will need to get collateral. Will start dispo planning. Patient will need a VNA upon return to the community. It seems that she is willing to take medications when the given to her however if left on her own, does not take them and decompensates. Plan: CV Q 15 minute checks Continue Zyprexa 20 mg q.h.s. Continue Trihexphenidyl 2mg BID Dispo planned 02/06: Continue treatment plan Reason for continued inpatient stay Substantial Risk for: harm to self, inability to function and rapid decompensation Time Spent With Patient Time: Total time managing care of this patient today ____ minutes.
[2023-02-06 18:00] VITALS: BP 147/83; PULSE 70; TEMP 36.2; O2SAT 100
[2023-02-06] MEDS: OLANZapine 10 MG TABLET 20 MG PO (20:44)
[2023-02-06] MEDS: traZODone HCL 50 MG TABLET PO (20:45)
[2023-02-06 22:11] VITALS: BP 147/83; PULSE 70; RESP 16; TEMP 36.2; O2SAT 100
[2023-02-07 08:23] VITALS: BP 130/64; PULSE 58; RESP 16; TEMP 36.1; O2SAT 100
[2023-02-07] MEDS: Trihexyphenidyl HCL 2 MG TABLET PO ×2 (08:26→20:41)
--- NOTE | 2023-02-07 13:12 | P.PNPSI_ITS ---
Subjective Subjective Date of Service: 02/07/23 Reason For Visit: schizophrenia hallucinations hi toward family Interim History: Met with patient; discussed with team Patient seen with the department coordinator and the nurse. She reports that she had trouble sleeping. She denied any other symptoms of depression or hallucinations or suicidal ideation. Her answers were very concrete and limited and non- elaborate. For example, when asked about her medication's and their indication, she said that she takes three pills in the morning and would repeatedly say that she takes three in the morning when I asked about the indications. This was in spite of having the department coordinator available. She was pleasant to the interview. Review of Systems Review of Systems Constitutional: No Fever, No Chills, No Fatigue, No Malaise ENT/Mouth: No Ear Pain, No sore throat, No Rhinorrhea, No Swallowing Difficulty Eyes: No Eye Pain, No Swelling, No Redness Cardiovascular: No Chest Pain, No SOB Respiratory: No Cough Gastrointestinal: No Nausea, No Vomiting, No Diarrhea, No Constipation, No Abdominal pain Musculoskeletal: No joint pain, No Myalgias, No Joint Swelling Skin: No Skin Lesions, No rash Neuro: No Weakness Psych: No Anxiety/Panic, No Depression, + SI/HI/AH/VH, + Social Issues Yes all other systems are reviewed and are negative Constitutional: Reports as per HPI Mental Status Exam Mental Status Exam Narrative: Pt is alert and oriented; behavior is cooperative, friendly and calm; some chorea type arm movements; patient is not in distress; dressed in casual attire with unkempt hair but adequate hygiene; mood is described as good though affect blunted; eye contact appropriate; Speech is normal rate, volume and prosody and not pressured; no psychomotor agitation/retardation present; thought process is goal oriented; today no extraneous comments made; Thought content is somewhat vacuous; no delusional thinking expressed; denies any SI/HI. Denies AVH Patients insight and judgment impaired but improving and likely getting close to baseline. Diagnostics Vital Signs (24Hr): Vital Signs - 24 hr 02/06/23 18:00 02/06/23 22:11 02/07/23 08:23 Temperature 97.2 F 97.2 F 96.9 F Pulse Rate 70 70 58 Respiratory Rate 16 16 Blood Pressure 147/83 H 147/83 H 130/64 Pulse Oximetry 100 100 100 Oxygen Delivery Method Room Air Room Air Room Air BMI result Body Mass Index 29.4 Labs 02/01/23 16:27 02/03/23 07:18 Medications Medications Current Medications Acetaminophen (Acetaminophen 325 Mg Tablet) 650 mg PO Q6H PRN PRN Reason: Headache/Pain Mild Scale (1-3) Last Admin: 02/05/23 20:47 Dose: 650 mg Al Hydroxide/Mg Hydroxide (Magnesium Hydrox/Alum Hydrox 30 Ml Oral.Susp) 30 ml PO Q6H PRN PRN Reason: Heartburn/Nausea Hydroxyzine HCl (Hydroxyzine Hcl 25 Mg Tablet) 25 mg PO Q6H PRN PRN Reason: Anxiety Magnesium Hydroxide (Milk Of Magnesia 30 Ml Oral.Susp) 30 ml PO DAILY PRN PRN Reason: Constipation Last Admin: 02/04/23 20:04 Dose: 30 ml Olanzapine (Olanzapine 10 Mg Tablet) 20 mg PO BEDTIME NICKOLAS Last Admin: 02/06/23 20:44 Dose: 20 mg Trazodone HCl (Trazodone Hcl 50 Mg Tablet) 50 mg PO BEDTIME MRX1 PRN PRN Reason: Insomnia Last Admin: 02/06/23 20:45 Dose: 50 mg Trihexyphenidyl HCl (Trihexyphenidyl Hcl 2 Mg Tablet) 2 mg PO BID NICKOLAS Last Admin: 02/07/23 08:26 Dose: 2 mg Allergies Allergies Allergy/AdvReac Type Severity Reaction Status Date / Time cephalexin Allergy Unknown Verified 05/13/16 00:00 metronidazole Allergy Unknown Verified 05/13/16 00:00 No Known Allergies Allergy Unverified 02/01/20 15:26 [No Known Allergies*] monohydrate Allergy Unknown Uncoded 05/13/16 00:00 Assessment & Plan Assessment & Plan (1) Chronic schizophrenia: Status: Acute Code(s): F20.9 - Schizophrenia, unspecified Plan Seen with butter wrapper Patient is a 62-year-old female, Urdu-speaking only, with history of schizophrenia who presents for dysregulated behavior, SI and HI, delusional thoughts in the face of going off her medication. Patient reports that she stop taking her pills and so the visiting nurse called the ambulance... Automation And Controls Instructor... She says I through the pills away...not taking them... I get scared and I do not take them... She had trouble saying what she was scared about, but mentioned that her mother bothers her at night while she sleeping and she does not like it; she then said that there was something on her head that made her feel scared, touching her head... Care team note reports that in the community patient said she wanted to shoot [her] mother and daughter... And also was banging her head on the wall a few times. Patient acknowledged that she had homicidal ideation towards her mother but no longer has them at all; she said she did have suicidal thoughts but no longer has them at all. She reports auditory hallucinations but said it is only mumbles and she cannot make out what things are said. Patient is amenable to restarting her Zyprexa now. Patient amenable to team gather collateral Impression; chronic psychotic illness with history of noncompliance and decompensation causing current presentation. Will restart patient on Zyprexa; if possible will see if can find out medication trials and whether not a long-acting injectable is an option Hospital course: 02/04 Patient reports she is feeling good today and better than yesterday. She says she has no thoughts of hitting anyone, hurting herself or anyone else. She denies any auditory hallucinations. Discussed having a VNA and patient said it was helpful. Patient's daughter called and spoke with social professionals. Said that her mother is normally stable, functional able to live on her own in the community when she was having a visiting nurse come and deliver medications daily up. She reports that a month or so ago VNA started putting her medications in a lock box and since then her mother has started to decompensate; he came to her daughter's attention that patient was taking medication and throwing them outside. She says that aside from this incident where her mother expressed violent thoughts, she has never harmed anyone or been aggressive with anyone or herself. 02/04 patient pleasant and calm; denies AVH; denies SI/HI. Says she is starting to feel back to her regular self. Still very reticent and does not engage much. Seems likely she is approaching baseline however will need to get collateral. Will start dispo planning. Patient will need a VNA upon return to the community. It seems that she is willing to take medications when the given to her however if left on her own, does not take them and decompensates. Plan: CV Q 15 minute checks Continue Zyprexa 20 mg q.h.s. Continue Trihexphenidyl 2mg BID Dispo planned 02/06: Continue treatment plan 02/07 Continue current treatment plan Reason for continued inpatient stay Substantial Risk for: inability to function and rapid decompensation Time Spent With Patient Time: Total time managing care of this patient today ____ minutes.
[2023-02-07 18:00] VITALS: BP 142/84; PULSE 16; RESP 18; TEMP 36.4; O2SAT 97
[2023-02-07] MEDS: OLANZapine 10 MG TABLET 20 MG PO (20:42)
[2023-02-08 09:02] VITALS: BP 120/72; PULSE 73; RESP 16; TEMP 36.1; O2SAT 97
[2023-02-08] MEDS: Trihexyphenidyl HCL 2 MG TABLET PO ×2 (09:10→20:39)
--- NOTE | 2023-02-08 10:00 | HO.PSYCHPN ---
Subjective Subjective Date of Service: 02/08/23 Reason For Visit: schizophrenia hallucinations hi toward family Interim History: met with patient; discussed with team; reviewed notes Patient's son present who think she is back to her regular self. Patient reports that she is doing well. Denies any AVH; says she is sleeping well. Says she would very much like to discharge. Patient is no longer isolative, now sociable, sitting in the milieu with peers. Mental Status Exam Mental Status Exam Narrative: Pt is alert and oriented; behavior is cooperative, friendly and calm; some chorea type arm movements; patient is not in distress; dressed in casual attire with good grooming/hygiene; mood is described as good though affect blunted; eye contact appropriate; Speech is normal rate, volume and prosody and not pressured; no psychomotor agitation/retardation present; thought process is goal oriented; Thought content is discharge some it; no delusional thinking expressed; denies any SI/HI. Denies AVH Patients insight and judgment fair. Diagnostics Vital Signs (24Hr): Vital Signs - 24 hr 02/07/23 18:00 02/08/23 09:02 Temperature 97.6 F 96.9 F Pulse Rate 16 L 73 Respiratory Rate 18 16 Blood Pressure 142/84 H 120/72 Pulse Oximetry 97 97 Oxygen Delivery Method Room Air Room Air BMI result Body Mass Index 29.4 Labs 02/01/23 16:27 02/03/23 07:18 Medications Medications Current Medications Acetaminophen (Acetaminophen 325 Mg Tablet) 650 mg PO Q6H PRN PRN Reason: Headache/Pain Mild Scale (1-3) Last Admin: 02/05/23 20:47 Dose: 650 mg Al Hydroxide/Mg Hydroxide (Magnesium Hydrox/Alum Hydrox 30 Ml Oral.Susp) 30 ml PO Q6H PRN PRN Reason: Heartburn/Nausea Hydroxyzine HCl (Hydroxyzine Hcl 25 Mg Tablet) 25 mg PO Q6H PRN PRN Reason: Anxiety Magnesium Hydroxide (Milk Of Magnesia 30 Ml Oral.Susp) 30 ml PO DAILY PRN PRN Reason: Constipation Last Admin: 02/04/23 20:04 Dose: 30 ml Olanzapine (Olanzapine 10 Mg Tablet) 20 mg PO BEDTIME NICKOLAS Last Admin: 02/07/23 20:42 Dose: 20 mg Trazodone HCl (Trazodone Hcl 50 Mg Tablet) 50 mg PO BEDTIME MRX1 PRN PRN Reason: Insomnia Last Admin: 02/06/23 20:45 Dose: 50 mg Trihexyphenidyl HCl (Trihexyphenidyl Hcl 2 Mg Tablet) 2 mg PO BID NICKOLAS Last Admin: 02/08/23 09:10 Dose: 2 mg Allergies Allergies Allergy/AdvReac Type Severity Reaction Status Date / Time cephalexin Allergy Unknown Verified 05/13/16 00:00 metronidazole Allergy Unknown Verified 05/13/16 00:00 No Known Allergies Allergy Unverified 02/01/20 15:26 [No Known Allergies*] monohydrate Allergy Unknown Uncoded 05/13/16 00:00 Assessment & Plan Assessment & Plan (1) Chronic schizophrenia: Status: Acute Code(s): F20.9 - Schizophrenia, unspecified Plan Seen with physician primary care sports medicine Patient is a 62-year-old female, Honduran-speaking only, with history of schizophrenia who presents for dysregulated behavior, SI and HI, delusional thoughts in the face of going off her medication. Patient reports that she stop taking her pills and so the visiting nurse called the ambulance... Frame Trimmer... She says I through the pills away...not taking them... I get scared and I do not take them... She had trouble saying what she was scared about, but mentioned that her mother bothers her at night while she sleeping and she does not like it; she then said that there was something on her head that made her feel scared, touching her head... Care team note reports that in the community patient said she wanted to shoot [her] mother and daughter... And also was banging her head on the wall a few times. Patient acknowledged that she had homicidal ideation towards her mother but no longer has them at all; she said she did have suicidal thoughts but no longer has them at all. She reports auditory hallucinations but said it is only mumbles and she cannot make out what things are said. Patient is amenable to restarting her Zyprexa now. Patient amenable to team gather collateral Impression; chronic psychotic illness with history of noncompliance and decompensation causing current presentation. Will restart patient on Zyprexa; if possible will see if can find out medication trials and whether not a long-acting injectable is an option Hospital course: 02/04 Patient reports she is feeling good today and better than yesterday. She says she has no thoughts of hitting anyone, hurting herself or anyone else. She denies any auditory hallucinations. Discussed having a VNA and patient said it was helpful. Patient's daughter called and spoke with outreach and education social worker. Said that her mother is normally stable, functional able to live on her own in the community when she was having a visiting nurse come and deliver medications daily up. She reports that a month or so ago VNA started putting her medications in a lock box and since then her mother has started to decompensate; he came to her daughter's attention that patient was taking medication and throwing them outside. She says that aside from this incident where her mother expressed violent thoughts, she has never harmed anyone or been aggressive with anyone or herself. 02/04 patient pleasant and calm; denies AVH; denies SI/HI. Says she is starting to feel back to her regular self. Still very reticent and does not engage much. Seems likely she is approaching baseline however will need to get collateral. Will start dispo planning. Patient will need a VNA upon return to the community. It seems that she is willing to take medications when the given to her however if left on her own, does not take them and decompensates. 02/08 patient much improved; son present on the unit today and says that she is back to her regular self. Patient does indeed seem much more calm, brighter affect, no longer isolating herself in her room but socializing in the day room with peers. Patient says she feels ready to go home. Patient is not in imminent risk for harm to self or others and her request for discharge honored. Plan: CV Q 15 minute checks Continue Zyprexa 20 mg q.h.s. Continue Trihexphenidyl 2mg BID Dispo planned Patient educated on: diagnosis and medication risk/benefits Informed Consent: understands Reason for continued inpatient stay Substantial Risk for: stable for discharge Time Spent With Patient Time: Total time managing care of this patient today ____ minutes.
--- NOTE | 2023-02-08 17:03 | P.DS_ITS ---
DS: Providers Provider Date of Service: 02/09/23 Date of admission: 02/02/23 13:44 Date of discharge: 02/09/23 Primary care physician: [facility] [place] Attending physician on admission: Tawanda Madrid Attending physician on discharge: Tawanda Madrid DS: Diagnosis Discharge Diagnosis (1) Chronic schizophrenia: Status: Acute DS: Medications Discharge Medications Home Medications: Previous Rx's Medication Instructions Recorded olanzapine 20 mg tablet (Zyprexa) 20 mg PO BEDTIME 30 days #30 tabs 02/08/23 trihexyphenidyl 2 mg tablet 2 mg PO BID 30 days #60 tabs 02/08/23 Mental Status Exam Mental Status Exam Narrative: Pt is alert and oriented; behavior is cooperative, friendly and calm; some chorea type arm movements; patient is not in distress; dressed in casual attire with good grooming/hygiene; mood is described as good though affect blunted; eye contact appropriate; Speech is normal rate, volume and prosody and not pressured; no psychomotor agitation/retardation present; thought process is goal oriented; Thought content is discharge; no delusional thinking expressed; denies any SI/HI. Denies AVH Patients insight and judgment fair. Data Data Completed and Pending Completed studies during hospitalization [Text1]: 02/01/23 02/03/23 21:14 07:18 Sodium 142 Potassium 4.2 Chloride 111 H Carbon Dioxide 24 Anion Gap 11 L BUN 13 Creatinine 0.70 Estim Creat Clear Calc 91.4 Estimated GFR > 60 Fasting Glucose 92 Calcium 9.1 D Total Bilirubin 0.3 AST 18 ALT 17 Alkaline Phosphatase 78 Total Protein 6.4 L Albumin 3.8 Triglycerides 82 Cholesterol 193 LDL Cholesterol, Calc 125 H HDL Cholesterol 52 COVID-19 ([facility]) Negative COVID-19 Clin Com See Note DS: Summary Hospital Course Hospital Course: HPI: Patient is a 62-year-old female, Portuguese-speaking only, with history of schizophrenia who presents for dysregulated behavior, SI and HI, delusional thoughts in the face of going off her medication. Patient reports that she stop taking her pills and so the visiting nurse called the ambulance... Hospital Personnel Director... She says I through the pills away...not taking them... I get scared and I do not take them... She had trouble saying what she was scared about, but mentioned that her mother bothers her at night while she sleeping and she does not like it; she then said that there was something on her head that made her feel scared, touching her head... Care team note reports that in the community patient said she wanted to shoot [her] mother and daughter... And also was banging her head on the wall a few times. Patient acknowledged that she had homicidal ideation towards her mother but no longer has them at all; she said she did have suicidal thoughts but no longer has them at all. She reports auditory hallucinations but said it is only mumbles and she cannot make out what things are said. Patient is amenable to restarting her Zyprexa now. Patient amenable to team gather collateral Hospital course: Seen with cloth bleaching range operator chief On Admission, restarted Zyprexa to good effect 02/04 Patient reports she is feeling good today and better than yesterday. She says she has no thoughts of hitting anyone, hurting herself or anyone else. She denies any auditory hallucinations. Discussed having a VNA and patient said it was helpful. Patient's daughter called and spoke with social science teacher. Said that her mother is normally stable, functional able to live on her own in the community when she was having a visiting nurse come and deliver medications daily up. She reports that a month or so ago VNA started putting her medications in a lock box and since then her mother has started to decompensate; he came to her daughter's attention that patient was taking medication and throwing them outside. She says that aside from this incident where her mother expressed violent thoughts, she has never harmed anyone or been aggressive with anyone or herself. 02/04 patient pleasant and calm; denies AVH; denies SI/HI. Says she is starting to feel back to her regular self. Still very reticent and does not engage much. Seems likely she is approaching baseline however will need to get collateral. Will start dispo planning. Patient will need a VNA upon return to the community. It seems that she is willing to take medications when the given to her however if left on her own, does not take them and decompensates. 02/08 patient much improved; son present on the unit today and says that she is back to her regular self. Patient does indeed seem much more calm, brighter affect, no longer isolating herself in her room but socializing in the day room with peers. Patient says she feels ready to go home. Patient is not in imminent risk for harm to self or others and her request for discharge honored. Meds: Continue Zyprexa 20 mg q.h.s. Continue Trihexphenidyl 2mg BID Time spent discussing smoking cessation with patient: 3 to 10 minutes Status at Discharge Functional status at discharge: independent ambulation Overall status at discharge: patient is back to baseline Time Spent with Patient Time attestation: Total time managing care of this patient today ____ minutes. Time spent: Less than 30 minutes Discharge Plan Discharge Anticipated Discharge Date/Time: 02/09/23 11:30 Patient Disposition: Home, Self-Care Discharge Diagnosis: Schizophrenia [facility] (fax- [phone] Smitha Perez SRINATH will restart with daily visits at D/C ) [facility] Medication Provider Dr. Islas [Other] - 02/15/23 12:40 pm [facility] [Primary Care Provider] - 1 Week Discharge Medications: Continued trihexyphenidyl 2 mg tablet 2 mg PO BID 30 Days Qty: 60 1RF olanzapine [Zyprexa] 20 mg tablet 20 mg PO BEDTIME 30 Days Qty: 30 1RF Discharge Orders: Discharge Order (Routine); Ordered 02/09/23 Ordered By: Tawanda Madrid Diet: Regular diet Activity on Discharge: As tolerated Stand Alone Forms: Patient Portal Discharge page, Community Support Care Plan Goals: Maintain mood and safe behaviors Take medications as prescribed Practice coping skills Continue with outpatient providers and reach out to them as needed Health Concerns: Mood stability and behaviors Plan of Treatment: Follow up with your PCP, psychiatric provider and other outpatient providers regarding above concerns Take medications as prescribed Assessment: Risk assessment at time of discharge:? Patient was interviewed prior to discharge and found to be fully oriented and without any SI or HI. Patient has insight and demonstrates good judgment in terms of wanting to pursue treatment. Patient is not in imminent risk of harm to self or others and has a safety plan that includes presenting to the closest ER or calling 911 if feeling unsafe.? Patient has been observed closely by nursing and unit staff throughout admission; patient has not engaged in any behaviors that suggest dangerousness to self or others and has demonstrated appropriate behaviors and impulse control Discharge Date/Time: 02/09/23 11:15
[2023-02-08 18:00] VITALS: BP 132/84; PULSE 82; RESP 16; TEMP 36; O2SAT 100
[2023-02-08] MEDS: OLANZapine 10 MG TABLET 20 MG PO (20:39)
[2023-02-09 06:00] VITALS: BP 133/60; PULSE 76; RESP 18; TEMP 36.6; O2SAT 98
[2023-02-09] MEDS: Trihexyphenidyl HCL 2 MG TABLET PO (09:21)
== END 2023-02-09 11:15 | disposition home or self-care (01) | DRG 750 ==
LOC: HO.ED 15:57 → HO.PM5 02-02 13:45
PROVIDERS: Physician Assistant; Admitting Provider Psychiatry & Neurology Psychiatry; Emergency Provider Emergency Medicine; Visit Provider Psychiatry & Neurology Psychiatry
DX: F20.9 Schizophrenia, unspecified (principal); R45.850 Homicidal ideations; Z20.822 Contact with and (suspected) exposure to COVID-19; Z23 Encounter for immunization; Z79.899 Other long term (current) drug therapy
CPT/HCPCS: 36415; 80053; 80061; 80143; 80179; 80307; 81001; 85025; 87635; 90686; 93005; 99285

== ENCOUNTER → 2023-02-02 13:44 | Outpatient (BNV) | payer OTHER, SELFPAY | PROVIDERS: Admitting Provider Psychiatry & Neurology Psychiatry; Emergency Provider Emergency Medicine; Visit Provider Psychiatry & Neurology Psychiatry | DX: F20.89 Other schizophrenia (principal) | CPT/HCPCS: 99231; 99232 ==

== ENCOUNTER → 2025-01-10 22:12 | Outpatient (BNV) | payer MEDICAID, SELFPAY | PROVIDERS: Visit Provider Radiology Diagnostic Radiology | DX: M79.671 Pain in right foot (principal) | CPT/HCPCS: 73630 ==

== ENCOUNTER 2025-01-10 22:43 | Emergency (ER) | payer MEDICAID, SELFPAY ==
--- NOTE | ~2025-01-10 | XR_ITS ---
CLINICAL HISTORY: right foot pain, ?infection Right foot three views Comparison: None provided Findings: No acute fracture or dislocation identified. No acute focal bony abnormality. No radiopaque foreign body noted. Impression: No acute bony abnormality This document has been electronically signed by: Bong Myers MD on 01/11/2025 00:21:35
[2025-01-10 22:48] VITALS: BP 149/70; PULSE 75; RESP 16; TEMP 36.5; O2SAT 99; BMI 32.2
[2025-01-10 23:26] LABS: MANUAL DIFF FLAG NO
[2025-01-10 23:27] LABS: Hematocrit 39.9 % (37.0-47.0); Hemoglobin 12.8 g/dl (12.0-16.0); Imm Gran Abs Auto 0.02 X10*3/uL (0.00-0.03); Imm Gran Pct Auto 0.2 % (0.0-0.4); Lymphocytes Absolute Auto 3.6 X10*3/uL (1.2-4.9); Mean Corpuscular HGB Conc 32.1 g/dl (31.0-35.0); Mean Corpuscular Hemoglobin 24.7 pg (27.0-33.0); Mean Corpuscular Volume 77.0 fL (80.0-98.0); NRBC Abs Auto 0.000 X10*3/uL (0.0-0.012); NRBC Pct Auto 0.0 /100WBC (0.0-0.2); Platelet Count 300 X10*3/uL (160-400); Red Blood Count 5.18 X10*6/uL (4.20-5.50); White Blood Count 9.9 X10*3/uL (4.8-10.8)
[2025-01-10 23:42] LABS: Alanine Aminotransferase 25 U/L (0-31); Albumin Level 4.6 g/dL (3.5-5.0); Alkaline Phosphatase 108 U/L (39-117); Anion Gap 13 (12-20); Aspartate Amino Transferase 26 U/L (5-31); Blood Urea Nitrogen 18 mg/dL (9-16); Calcium 9.4 mg/dL (8.4-10.2); Carbon Dioxide 23 mmol/L (22-29); Chloride 108 mmol/L (96-108); Creatinine Clr Calc Pharmacy 73.2; Estimated Glomerular Filt Rate > 60; Potassium 4.0 mmol/L (3.3-5.1); Sodium 140 mmol/L (135-145); Total Protein 7.2 g/dL (6.5-8.0)
[2025-01-11 00:30] VITALS: BP 153/76; PULSE 73; RESP 18; TEMP 36.8; O2SAT 100
[2025-01-11 00:40] VITALS: BP 140/60; PULSE 64; RESP 18; TEMP 36.8; O2SAT 100
--- OUTSIDE RECORDS SUMMARY | 2025-01-11 00:57 | XMS_ITS | Encounter Summary ---
Author Organization [employer] Address [address] [place] [address] Care Team Providers Care Tire Spotter Name Role Phone Eulalia De Los Santos NP Primary Care Provider [phone] Reason for Visit * Reason Comments Med Refill Encounter Details Date Type Department Care Team ([facility] st Contact Info) Description 04/20/2024 Refill [facility] [address], [place] [phone] Anahi Mccallum FNP [address], [place] [phone] Hypothyroidism, unspecified type Social History Tobacco Use Types Packs/Day Years Used Date Smoking Tobacco: Former Cigarettes Smokeless Tobacco: Never Depression Answer Date Recorded Patient Health Questionnaire-9 Score 0 01/01/2023 Housing Stability Answer Date Recorded What is your housing situation today? I have braxton baldwin 03/08/[address] you li ve. Do you have problems with any of the following? None of the above 03/08/2023 Food Insecurity Answer Date Recorded Within the past 12 months, y ou worried that your food would run out before you got money to buy more: Never True 03/08/2023 Within the past 12 months,th e food you bought just didn't last and you didn't have enough money to get more: Never True Transportation Answer Date Recorded In the past 12 months, has l ack of transportation kept you from medical appts, meetings, work or from getting things needed for daily living? No 03/08/2023 Utilities Answer Date Recorded In the past 12 months, has t he electric, gas, oil or water company threatened to shut off services in your home? No 03/08/2023 Depression Answer Date Recorded Patient Health Questionnaire-2 Score 0 01/01/2023 Comments Unknown Sex and Gender Information Value Date Recorded Sex Assigned at Female 03/16/2022 10:14 AM EDT Legal Sex Female 10:14 AM EDT Gender Identity Female 03/16/2022 10:14 AM EDT Sexual Orientation Choose not to disclose 2021 10:14 AM EDT documented as of this encounter Plan of Treatment Upcoming Encounters Date Type Department Care Team (Late st Contact Info) Description 02/19/2025 2:00 PM EDT Office Visit [facility] [address] [place] [address] Eulalia De Los Santos NP [address] [place] [address] documented as of this encounter Visit Diagnoses Diagnosis Hypothyroidism, unspecified type documented in this encounter Additional Health Concerns Assessment Noted Time PHQ-9 Depression Total Score: 0 01/02/20 23 9:56 AM EDT documented as of this encounter Care Teams Tire Spotter Relationship Specialty Start Date End Date Eulalia De Los Santos NP [address] [place] [address] PCP - General Family Medicine 12/31/23 documented as of this encounter
--- OUTSIDE RECORDS SUMMARY | 2025-01-11 00:57 | XMS_ITS | Encounter Summary ---
Author Organization [employer] Address [address] [facility] 7t [place] [address] Care Team Providers Care Identification Clerk Name Role Phone Anahi Mccallum Primary Care Provider [phone] Eulalia De Los Santos NP Primary Care Provider [phone] Encounter Details Date Type Department Care Team (Late Contact Info) Description 01/05/2023 Orders Only [facility] CH[facility] MED & PEDS [address] [place] [address] Anahi Mccallum FNP [address] [place] [address] Right ankle pain, unspecified chronicity (Primary Dx) Social History Tobacco Use Types Packs/Day Years Used Date Smoking Tobacco: Former Cigarettes Smokeless Tobacco: Never Depression Answer Date Recorded Patient Health Questionnaire-9 Score 0 01/01/2023 Depression Answer Date Recorded Patient Health Questionnaire-2 [...] Upcoming Encounters Date Type Department Care Team ([facility] Contact Info) Description 02/19/2025 2:00 PM EDT Office Visit [facility] MEDICINE [address] [place] [address] Eulalia De Los Santos NP [address] [place] [address] documented as of this encounter Procedures Procedure Name Priority Date/Time Associated Diagnosis Comments COVID-19 ID NOW (FISHMAN) Routine 02/01/2023 9:14 PM EDT Right ankle pain, unspecified chronicity ETHANOL Routine 02/01/2023 4:27 PM EDT Right ankle pain, unspecified chronicity CBC WITH AUTO DIFFERENTIAL Routine 02/01/2023 4:27 PM EDT Right ankle pain, unspecified chronicity ACETAMINOPHEN LEVEL Routine 02/01/2023 4 :27 PM EDT Right ankle pain, unspecified chronicity SALICYLATE Routine 02/01/2023 4:27 PM EDT Right ankle pain, unspecified chronicity COMPREHENSIVE METABOLIC PANEL Routine 02/01/2023 4:27 PM EDT Right ankle pain, unspecified chronicity URINALYSIS, COMPLETE, WITH REFLEX TO CULTURE Routine 02/01/2023 4:03 PM EDT Right ankle pain, unspecified chronicity DRUG MONITOR, PANEL 1, SCREEN, URINE Routine 02/01/2023 4:03 PM EDT Right ankle pain, unspecified chronicity documented in this encounter Results * COVID-19 ID NOW (FISHMAN) (02/01/2023 9:14 PM EDT) IDNOW SERIAL# [id number] [facility] COVID-19 TEST Negative Negative [facility] COVID-19 NOTE See Note [facility] Comment: Results are for the identification of SARS-CoV2 RNA. TheSARS-CoV2 RNA is generally detectable in respiratory samplesduring the acute phase of infection. Positive results areindicative of the presence of SARS-CoV-2 RNA; clinicalcorrelation with patient history and other diagnosticinformation is necessary to determine patient infectionstatus. Positive results do not rule out bacterial infectionor co- infection with other viruses.Testing facilities within the [place] and [facility] are required to report all positive results tothe appropriate public health authorities.Negative results should be treated as presumptive and, ifinconsistent with clinical signs and symptoms or necessaryfor patient management, should be tested with differentauthorized or cleared molecular tests. Negative results donot preclude SARS-CoV2 RNA infection and should not be usedas the sole basis for patient management decisions. Negativeresults should be considered in the context of a patient'srecent exposures, history and the presence of clinical signsand symptoms consistent with COVID-19.This test has been authorized by the FDA under an EmergencyUse Authorization (EUA) for use by authorized laboratories.Testing performed on the [employer] NOW utilizing NAAT. 02/01/2023 9:14 PM EDT 02/01/2023 9:32 PM EDT [facility] Exter nal Provider LAB MOLECULAR DIAGNOSTICS ORDERABLES Final Result Performing Organization Address [facility]/ZIP Co de Phone Number [facility] [address] [place] [phone] * Acetaminophen level (02/01/2023 4:27 PM EDT) [facility] Acetaminophen LAB <17 <30 mcg/mL [facility] 02/01/2023 4:27 PM EDT 02/01/2023 4:32 PM EDT Generic External Data Provider LAB BLOOD ORDERAB LES Final Result Performing Organization Address [facility] Co de Phone Number [facility] [address] [place] [address] [phone] * (ABNORMAL) Salicylate (02/01/2023 4:27 PM EDT) Salicylate <5.0(L) 15 - 30 mg/dL [facility] 02/01/2023 4:27 PM EDT 02/01/2023 4:32 PM EDT [facility] External Provider LAB BLO OD ORDERABLES Final Result Performing Organization Address [facility]/ZIP Co de Phone Number [facility] [address] [place] [address] [phone] * Ethanol (02/01/2023 4:27 PM EDT) ETHANOL (MG/DL) IN SER/PLAS <10 mg/dL [facility] Comment:Serum/plasma ethanol results are to be used formedical/treatment purposes only. 02/01/2023 4:27 PM EDT 02/01/2023 4:32 PM EDT Generic External Data Provider LAB BLOOD ORDERAB LES Final Result Performing Organization Address [facility] de Phone Number [facility] [address] [place] [address] [phone] * (ABNORMAL) Comprehensive Metabolic Panel (02/01/2023 4:27 PM EDT) Sodium 139 135 - 145 mmol/L [facility] Potassium 3.5 3.3 - 5.1 mmol/L [facility] Chloride 105 96 - 108 mmol/L [facility] Carbon Dioxide 27 22 - 29 mmol/L [facility] Anion Gap 11(L) 12 - 20 [facility] Urea Nitrogen (BUN) 10 9 - 16 mg/dL [facility] Creatinine, Serum 0.78 0.5 - 1.4 mg/dL [facility] Creatinine Clr Calc Pharmacy 82.0 [facility] Comment:Provided height and weight: 165.1 cm,83.915 kg.eGFR (calculated from the MDRD study equation) and eCrCl(calculated from the Cockcroft-Gault equation) are based ondifferent parameters and may not yield comparable results.If eCrCl result is absurd, please check patient'sheight/weight. Estimated Glomerular Filt Rate >60 [facility] Comment:NOTE: For -Am erican individuals, multiply the result by 1.210.Chronic Kidney Disease: Estimated GFR < 60 mL/min/1.47t4Exgrjl Kidney Disease: Estimated GFR < 15 mL/min/1.73m2 Glucose 128(H) 60 - 115 mg/dL [facility] Calcium 9.9 8.4 - 10.2 mg/dL [facility] Bilirubin, Total 0.2 0.0 - 1.0 mg/dL [facility] Aspartate Amino Transferase 24 5 - 31 U/L [facility] Alanine Aminotransferase 24 0 - 31 U/L [facility] Total Protein 7.5 6.5 - 8.0 g/dL [facility] Albumin Level 4.6 3.5 - 5.0 g/dL [facility] Alkaline Phosphatase 97 39 - 117 U/L [facility] 02/01/2023 4:27 PM EDT 02/01/2023 4:32 PM EDT us [facility] External Provider LAB BLO OD ORDERABLES Final Result [facility] [address] [place] [phone] * (ABNORMAL) CBC auto differential (02/01/2023 4:27 PM EDT) White Blood Count 7.4 4.8 - 10.8 X10*3/uL [facility] Red Blood Count 5.83(H) 4.20 - 5.50 X10*6/uL [facility] Hemoglobin 14.0 12.0 - 16.0 g/dl [facility] Hematocrit 44.1 37.0 - 47.0 % [facility] Mean Corpuscular Volume 75.6(L) 80.0 - 98.0 fL [facility] Mean Corpuscular Hemoglobin 24.0(L) 27.0 - 33.0 pg [facility] Mean Corpuscular HGB Conc 31.7 31.0 - 35.0 g/dl [facility] Red Cell Distribution Width 15.0 11.0 - 16.0 % [facility] Platelet Count 320 160 - 400 X10*3/uL [facility] Mean Platelet Volume 9.8 9.4 - 12.3 fL [facility] Neutrophils Percent Auto 64.3 45 - 73 % [facility] Imm Gran Pct Auto 0.4 0.0 - 0.4 % [facility] Lymphocytes Percent Auto 28.4 20 - 40 % [facility] Monocytes Percent Auto 4.8 2 - 11 % [facility] Eosinophils Percent Auto 1.7 0 - 4 % [facility] Basophils Percent Auto 0.4 0 - 2 % [facility] NRBC Pct Auto 0.0 0.0 - 0.2 /100WBC [facility] Neutrophils Absolute Auto 4.8 2.0 - 8.3 x10*3/uL [facility] Imm Gran Abs Auto 0.03 0.00 - 0.03 X10*3/uL [facility] Lymphocytes Absolute Auto 2.1 1.2 - 4.9 X10*3/uL [facility] Monocytes Absolute Auto 0.4 0.1 - 1.2 X10*3/uL [facility] Eosinophils Absolute Auto 0.1 0.0 - 0.4 X10*3/uL [facility] Basophils Absolute Auto 0.0 0.0 - 0.2 X10*3/uL [facility] NRBC Abs Auto 0.000 0.0 - 0.012 X10*3/uL [facility] 02/01/2023 4:27 PM EDT 02/01/2023 4:32 PM EDT us [facility] External Provider LAB BLO OD ORDERABLES Final Result [facility] [address] [place] [phone] * Drug Monitoring, Panel 1, Screen, Urine (02/01/2023 4:03 PM EDT) Opiate Screen Urine Not Detected Not Detect [facility] Comment:Opiate cut-off is 30 0 ng/mL.Positive results are unconfirmed and should not be used fornon-medical purposes. Barbiturates, Urine Not Detected Not Detect [facility] Comment:Barbiturate cut-off is 200 ng/mL.Positive results are unconfirmed and should not be used fornon-medical purposes. Phencyclidine Screen Urine Not Detected Not Detect [facility] Comment:Phencyclidine cut-of f is 25 ng/mL.Positive results are unconfirmed and should not be used fornon-medical purposes. Amphetamine Screen Urine Not Detected Not Detect [facility] Comment:Amphetamine cut-off is 1000 ng/mL.Positive results are unconfirmed and should not be used fornon-medical purposes. Benzodiazepines Screen Urine Not Detected Not Detect [facility] Comment:Benzodiazepine cut-o ff is 200 ng/mL.Positive results are unconfirmed and should not be used fornon-medical purposes. Cocaine Screen Urine Not Detected Not Detect [facility] Comment:Cocaine cut-off is 3 00 ng/mL.Positive results are unconfirmed and should not be used fornon-medical purposes. Cannabinoid Screen Urine Not Detected Not Detect [facility] Comment:Cannabinoid cut-off is 50 ng/mL.Positive results are unconfirmed and should not be used fornon-medical purposes. FENTANYL URINE Not Detected Not Detect [facility] Comment:Fentanyl cut-off is 1 ng/mL.Positive results are unconfirmed and should not be used fornon-medical purposes. 02/01/2023 4:03 PM EDT 02/01/2023 4:15 PM EDT us [facility] External Provider LAB URI NE ORDERABLES Final Result [facility] [address] [place] [address] [phone] * (ABNORMAL) Urinalysis, Complete, with Reflex to Culture (02/01/2023 4:03 PM EDT) Color Urine Yellow [facility] Appearance Urine Clear [facility] PH 5.5 5.0 - 9.0 [facility] Glucose Urine UA Negative Negative mg/dL [facility] Urine Blood Negative Negative [facility] Specific [place] - Urine 1.010 1.005 - 1.025 [facility] Urine Protein Negative Neg-Trace mg/dL [facility] Urine Ketones Negative Negative mg/dL [facility] Nitrite Urine Negative Negative [facility] Leukocyte Esterase Urine Trace(A) Negative [facility] RBC Urine 0-2 0 - 2 /HPF [facility] Urine WBC 0-5 0 - 5 /HPF [facility] Urine Squamous Epithelial Cell 0-2 0 - 2 /HPF [facility] Urine Bacteria None Seen None Seen [facility] Hyaline Casts, Urine 0-2 0 - 2 /LPF [facility] 02/01/2023 4:03 PM EDT 02/01/2023 4:15 PM EDT Narrative [facility] - 02/01/2023 4:38 PM EDT [id number], Clean Catch us [facility] External Provider LAB URI NE ORDERABLES Final Result [facility] [address] [place] [phone] documented in this encounter Visit Diagnoses Diagnosis Right ankle pain, unspecified chronicity- Primary documented in this encounter Additional Health Concerns Assessment Noted Time PHQ-9 Depression Total Score: 0 01/02/20 23 9:56 AM EDT documented as of this encounter Care Teams Identification Clerk Relationship Specialty Start Date End Date Anahi Mccallum FNP [address] [place] [address] PCP - General Family Medicine 02/20/22 12/30/23 Eulalia De Los Santos NP [address] [place] [address] PCP - General Family Medicine 12/31/23 documented as of this encounter
--- OUTSIDE RECORDS SUMMARY | 2025-01-11 00:57 | XMS_ITS | Encounter Summary ---
Author Organization [employer] Address [address] [facility] 7t [place] [address] Care Team Providers Care Garment Turner Name Role Phone Anahi Mccallum Primary Care Provider [phone] Eulalia De Los Santos NP Primary Care Provider [phone] Encounter Details Date Type Department Care Team (Late st Contact Info) Description 10/29/2022 Abstract [facility] MEDICINE [address] [place] [phone] Anahi Mccallum FNP [address] [place] [address] Social History Tobacco Use Types Packs/Day Years Used Date Smoking Tobacco: Never Assessed Comments Unknown Sex and Gender Information Value [...] Description 02/19/2025 2:00 PM EDT Office Visit [facility] MEDICINE [address] [place] [phone] Eulalia De Los Santos NP [address] [place], [place] [phone] documented as of this encounter Procedures Procedure Name Priority Date/Time Associated Diagnosis Comments PAP/HPV Routine 10/11/2018 COLONOSCOPY Routine 07/02/2016 9:20 AM EST documented in this encounter Results * Pap Smear (10/11/2018) Pap Negative for intraephithelial lesion or malignancy Negative for intraephithelial lesion or malignancy, Other HPV Undetected 10/11/2018 Historical Provider HEALTH MAINTENANCE Final Result * Colonoscopy (07/02/2016 9:20 AM EST) Colonoscopy Normal Normal Narrative An Francis - 07/02/2016 9:20 AM EST Recommended 10 year follow up Historical Provider HEALTH MAINTENANCE Edited Result - Final documented in this encounter Visit Diagnoses Not on filedocumented in this encounter Care Teams Garment Turner Relationship Specialty Start Date End Date Anahi Mccallum FNP [address] [place] [address] PCP - General Family Medicine 02/20/22 12/30/23 Eulalia De Los Santos NP [address] [place] [address] PCP - General Family Medicine 12/31/23 documented as of this encounter
--- OUTSIDE RECORDS SUMMARY | 2025-01-11 00:57 | XMS_ITS | Encounter Summary ---
Author Organization [employer] Address [address] [facility] [address] [place] [address] Care Team Providers Care Telescope Repairer Name Role Phone Anahi MccallumP Primary Care Provider [phone] Eulalia De Los Santos NP Primary Care Provider [phone] Reason for Visit * Reason Onset Date Comments Referral 12/28/2023 Encounter Details Date Type Department Care Team ([facility] st Contact Info) Description 12/28/2023 Telephone [facility] MEDICINE [address] [place] [address] Anahi Mccallum FNP [address] [place], [place] [phone] Referral Social History Tobacco Use Types Packs/Day Years [...] AM EDT documented as of this encounter Miscellaneous Notes * Telephone Encounter - Livia Villagomez RN - 12/29/2023 11:06 AM EDT T/C to son for below message, son states Dr. Islas is her PCP. And looking for referral for [facility].Son informed that Kallie MCCORMACK is her PCP, and pt. Have not seen her since last December. Son states she is going to call [facility] will call back. * Telephone Encounter - Antonino Veloz - 12/28/2023 11:38 AM EDT Tc patients son calling states needs referral for [facility] in order to continue [facility] services typewriter operator automatic does not see any referrals on chart documented in this encounter Plan of Treatment Upcoming Encounters Date Type Department Care Team (Late st Contact Info) Description 02/19/2025 2:00 PM EDT Office Visit [facility] MEDICINE [address] [place] [address] Eulalia De Los Santos NP [address] [place] [address] documented as of this encounter Visit Diagnoses Not on filedocumented in this encounter Additional Health Concerns Assessment Noted Time PHQ-9 Depression Total Score: 0 01/02/20 23 9:56 AM EDT documented as of this encounter Care Teams Telescope Repairer Relationship Specialty Start Date End Date Anahi Mccallum FNP [address] [place] [address] PCP - General Family Medicine 02/20/22 12/30/23 Eulalia De Los Santos NP [address] [place] [address] PCP - General Family Medicine 12/31/23 documented as of this encounter
--- OUTSIDE RECORDS SUMMARY | 2025-01-11 00:57 | XMS_ITS | Encounter Summary ---
Author Organization [employer] [facility] Address [address] [facility] 7t [place] [address] Care Team Providers Care Outreach Counselor Name Role Phone Anahi Mccallum Primary Care Provider [phone] Eulalia De Los Santos NP Primary Care Provider [phone] Encounter Details Date Type Department Care Team (Latest Contact Info) Description 07/06/2018 Abstract [facility] Dental, Provider, DDS Social History Tobacco Use Types Packs/Day Years [...] Upcoming Encounters Date Type Department Care Team ( st Contact Info) Description 02/19/2025 2:00 PM EDT Office Visit [facility] MEDICINE [address] [place] [address] Eulalia De Los Santos NP [address] [place] [address] documented as of this encounter Visit Diagnoses Not on filedocumented in this encounter Care Teams Outreach Counselor Relationship Specialty Start Date End Date Anahi Mccallum FNP [address] [place] [address] PCP - General Family Medicine 02/20/22 12/30/23 Eulalia De Los Santos NP [address] [place] [phone] PCP - General Family Medicine 12/31/23 documented as of this encounter
--- OUTSIDE RECORDS SUMMARY | 2025-01-11 00:57 | XMS_ITS | Encounter Summary ---
Author Organization [employer] Address [address] [place] [address] Care Team Providers Care Drop Wire Operator Name Role Phone Eulalia De Los Santos NP Primary Care Provider [phone] Reason for Visit * Reason Comments Med Refill Encounter Details Date Type Department Care Team ([facility] st Contact Info) Description 09/15/2024 Refill [facility] MEDICINE [address] [place], [place] [phone] Eulalia De Los Santos NP [address] [place] [address] Hypothyroidism, unspecified type Social History Tobacco Use [...] Description 02/19/2025 2:00 PM EDT Office Visit [facility] MEDICINE [address] [place] [address] Eulalia De Los Santos NP [address] [place] [address] documented as of this encounter Visit Diagnoses Diagnosis Hypothyroidism, unspecified type documented in this encounter Additional Health Concerns Assessment Noted Time PHQ-9 Depression Total Score: 0 01/02/20 23 9:56 AM EDT documented as of this encounter Care Teams Drop Wire Operator Relationship Specialty Start Date End Date Eulalia De Los Santos NP [address] [place] [address] PCP - General Family Medicine 12/31/23 documented as of this encounter
--- OUTSIDE RECORDS SUMMARY | 2025-01-11 00:57 | XMS_ITS | Encounter Summary ---
Author Organization [employer] Address [address] [facility] 7t [place] [address] Care Team Providers Care Layer Off Name Role Phone Eulalia De Los Santos NP Primary Care Provider [phone] Reason for Visit * Reason Comments Med Refill Encounter Details Date Type Department Care Team ([facility] st Contact Info) Description 04/10/2024 Refill [facility] MEDICINE [address] [place], [place] [phone] Anahi Mccallum FNP [address] [place] [address] Social History Tobacco Use Types Packs/Day Years [...] Description 02/19/2025 2:00 PM EDT Office Visit [facility] MEDICINE [address] [place] [address] Eulalia De Los Santos NP [address] [place] [address] documented as of this encounter Visit Diagnoses Not on filedocumented in this encounter Additional Health Concerns Assessment Noted Time PHQ-9 Depression Total Score: 0 01/02/20 23 9:56 AM EDT documented as of this encounter Care Teams Layer Off Relationship Specialty Start Date End Date Eulalia De Los Santos NP [address] [place] [address] PCP - General Family Medicine 12/31/23 documented as of this encounter
--- OUTSIDE RECORDS SUMMARY | 2025-01-11 00:57 | XMS_ITS | Clinical Summary ---
Author Organization [employer] Address [address] [place] [address] Care Team Providers Care Casino Investigator Name Role Phone MagaliEulalia ARIE Primary Care Provider [phone] Allergies Active Allergy Reactions Criticality Noted Date Comments Cephalexin 03/11/2015 Other reaction(s): hives Metronidazole 09/12/2010 Other reaction(s): rash: local to where applied, Medications OLANZapine (ZyPREXA) 20 MG tablet 3 Active trihexyphenidyl (Artane) 2 MG tablet Take 1 tablet by mouth every 12 (twelve) hours. 5 Active pravastatin (Pravachol) 80 MG tablet TAKE 1 TABLET (80 MG) BY MOUTH AT BEDTIME. 90 tablet 5 Active levothyroxine (Synthroid, Levoxyl) 100 MCG tabletIndicatio ns:Hypothyroidi sm, unspecified type TAKE 1 TABLET (100 MCG) BY MOUTH IN THE MORNING. NEEDS OFFICE VISIT FOR MEDS 30 tablet 5 Active Multiple Vitamin (Tab-A-Olvin) tablet TAKE 1 TABLET BY MOUTH ONCE PER DAY WITH FOOD. NEEDS OFFICE VISIT 30 tablet 5 Active omeprazole (PriLOSEC) [address] capsule TAKE 1 CAPSULE (20 MG) BY MOUTH BEFORE BREAKFAST. 30 capsule 2 5 Active omeprazole (PriLOSEC) [address] capsule TAKE 1 CAPSULE (20 MG) BY MOUTH BEFORE BREAKFAST. NEEDS OFFICE VISIT 30 capsule 5 025 Discontinued Active Problems Problem Noted Date Diagnosed Date Hypercholesterolemia 03/11/2015 Hypothyroidism 03/11/2015 Obesity 03/11/2015 Schizophrenia 03/11/2015 Encounters Date Type Department Care Team Description 12/12/2024 Refill [facility] [address] [place] [address] Eulalia De Los Santos NP 11/14/2024 Refill [facility] [address] [place], [place] [phone] Eulalia De Los Santos NP Hypothyroidism, unspecified type 10/12/2024 Telephone [facility] [address] [place], [place] [phone] Eulalia De Los Santos NP Care Coordination ([facility] Senior Copywriter) from Last 3 Months Immunizations Immunization Administration Dates Next Due Influenza injectable quadriv alent IIV4 with preservative 03/11/2018,04/22/2017,03/11/2015 Influenza injectable quadriv alent preservative free 01/30/2020,05/15/2019,05/20/2016 Influenza, IIV3, injectable 02/26/2021, 4,01/28/2011 Influenza, Split (incl. selene fied surface antigen) 02/03/2013,01/11/2012 TD (adult), 2 Lf tetanus tox oid, preservative free, adsorbed 10/06/2002 Tdap 11/27/2010 Zoster, Recombinant 12/14/2019,05/15/2019 Social History Tobacco Use Types Packs/Day Years Used Date Smoking Tobacco: Former Cigarettes Smokeless Tobacco: Never Tobacco Cessation:Counseling Given: Not Answered Depression Answer Date Recorded Patient Health Questionnaire-9 [...] not to disclose 2021 10:14 AM EDT Last Filed Vital Signs Vital Sign Reading Time Taken Comments Blood Pressure 120/93 01/01/2023 9:54 AM EDT Pulse 70 01/01/2023 9:54 AM EDT Temperature 36.7 C (98 F) 01/01/2023 9:54 AM EDT Respiratory Rate 18 01/01/2023 9:54 AM EDT Oxygen Saturation 96% 01/01/2023 9:54 AM EDT Inhaled Oxygen Concentration - - Weight 83.2 kg (183 lb 6 oz) 01/01/2023 9:54 AM EDT Height 157.8 cm (5' 2.13 ) 03/20/2022 11:36 AM E DT Body Mass Index 33.4 03/20/2022 11:36 AM EDT Plan of Treatment Upcoming Encounters Date Type Department Care Team (Late st Contact Info) Description 02/19/2025 2:00 PM EDT Office Visit [facility] [address] [place] [address] Eulalia De Los Santos NP [address] [place] [address] Health Maintenance Due Date Last Done Comments CT Colonography 1962 FIT DNA/Cologuard 1962 FIT 1962 FOBT 1962 HIV Screening 1962 Sigmoidoscopy 1962 Disability Screening 1962 Alcohol/Substance Use Screening 1974 Hepatitis C Screening 02/11/1980 Pneumococcal Vaccine: 50+ Years (1 of 1 - PCV) 02/11/2012 DTaP/Tdap/Td Vaccines (2 - Td or Tdap) 11/27/2020 11/27/2010, 10/06/2002 Mammogram 09/13/2023 09/12/2021, 10/15, 10/22/2017, Additional history exists Cervical Cancer Screening 10/12/2023 HPV/Cotest 10/12/2023 10/11/2018, 10/11/2018 Pap Smear 10/12/2023 10/11/2018 SDOH Screening 12/24/2023 12/23/2022 Depression Screening 01/02/2024 01/01/2023, 01/02/20 Tobacco Screening 01/02/2024 01/01/2023 COVID-19 Vaccine ( season) 2024 03/20/2021, 02/27/2021 Influenza Vaccine (#1) 2025 , 02/26/2021, 01/30/2020, Additional history exists Colonoscopy 07/02/2026 07/02/2016 Colorectal Cancer Screening 07/02/2026 Lipid Panel 01/02/2028 01/01/2023, 09/14, 07/30/2020 RSV Patients and Patients Aged 60 years or older (1 - 1-dose 75+ series) 2037 Zoster Vaccines Completed 12/14/2019, 05/15/2019 HIB Vaccines Aged Out No longer eligi ble based on patient's age to complete this topic HPV Vaccines Aged Out No longer eligi ble based on patient's age to complete this topic Hepatitis A Vaccines Aged Out No long er eligible based on patient's age to complete this topic Hepatitis B Vaccines Aged Out No long er eligible based on patient's age to complete this topic IPV Vaccines Aged Out No longer eligi ble based on patient's age to complete this topic Meningococcal B Vaccine Aged Out No l onger eligible based on patient's age to complete this topic Meningococcal Vaccine Aged Out No serene vern eligible based on patient's age to complete this topic RSV under 20 months Aged Out No longe r eligible based on patient's age to complete this topic Rotavirus Vaccines Aged Out No longer eligible based on patient's age to complete this topic Procedures Procedure Name Priority Date/Time Associated Diagnosis Comments LIPID PANEL, STANDARD Routine 01/01/2023 11:12 AM EDT Routine general medical examination at a health care facility MAMMOGRAM GENERIC Routine 09/12/2021 9:2 0 AM EDT ZZZ HISTORICAL HPV MRNA E6/E7 Routine 10/11/2018 12:00 AM EDT HM PAP/HPV Routine 10/11/2018 HM COLONOSCOPY Routine 07/02/2016 9:20 AM EST from Last 3 Months or Most Recently Relevant to Health Maintenance Results * Lipid Panel, Standard (01/01/2023 11:12 AM EDT) Triglycerides 91 mg/dL [facility] Comment:Desirable Triglyceri de: less than 150 mg/dLBorderline High Triglyceride 150-199 mg/dLHigh Triglyceride: 200-499 mg/dLVery High Triglyceride: greater than or equal to 5OO mg/dL Cholesterol 225 mg/dL [facility] Comment:Desirable Cholestero l: less than 200 mg/dLBorderline High Cholesterol: 200-239 mg/dLHigh Cholesterol: greater than 239 mg/dL LDL Cholesterol Calculated 147 mg/dl [facility] Comment:Desirable LDL: less than 100 mg/dLNear Optimal/Above Optimal LDL: 110- 129 mg/dLBorderline High LDL: 130-159 mg/dLHigh LDL: 160-189 mg/dLVery High LDL: greater than or equal to 190 mg/dL HDL Cholesterol 60 mg/dL [facility] Comment:Desirable HDL: great er than 40 mg/dL Note: This HDL assay may give artificially low results in patients with liver disease. Blood Venous blood specimen / Unknown 01/01/2023 11:12 AM EDT 01/01/2023 1:19 PM EDT us Anahi Mccallum DIRECTOR VETERINARY LAB BLOOD ORDERABLES Final Resu lt [facility] [address] [phone] * Mammography Report 1 (09/12/2021 9:20 AM EDT) Anatomical Region Laterality Modality Breast Bilateral Mammography 09/12/2021 9:20 AM EDT Narrative 09/15/2021 12:03 PM EDT Refer to the Notes tab for result details [facility] Procedure: Mammography Report 1 Procedure Note Provider, MD Lacy - 08/09/2022 Refer to the Notes tab for result details [facility] Procedure: Mammography Report 1 us Dyllan Purcell MD IMG BI PROCEDURES Final Resu lt * HPV mRNA E6/E7 (10/11/2018 12:00 AM EDT) HPV mRNA E6/E7 Not Detected NOT DETECTED [facility] Comment: This test was performed using the APTIMA(R) HPV Assay ([employer] This assay detects E6/E7 viral messenger RNA (mRNA) from 14 high-risk HPV types (16,18,31,33,35,39,45,51, 52,56,58,59,66,68). For additional information please refer to: http://education.CrowdSling/faq/IMP218e9 (This link is being provided for informational/ educational purposes only.) The analytical performance characteristics of this assay have been determined by [facility] [place], [place]. The modifications have not been cleared or approved by the FDA. This assay has been validated pursuant to the CLIA regulations and is used for clinical purposes. Test Performed by [employer], [employer] [place], [address] [place] [address] Ector Lawrence M.D., Ph.D., Director of Laboratories , CLIA [id number] Please note: Effective 01/27/2016, HPV testing will be performed using [employer]'s APTIMA test which targets mRNA. Detecting mRNA instead of DNA, as in older methods, offers significant improvements in specificity. 10/11/2018 Linda Renae NP HISTORICAL/NON ORDERABLE LABS Fi nal Result [facility] [address] * Pap Smear (10/11/2018) Pap Negative for intraephithelial lesion or malignancy Negative for intraephithelial lesion or malignancy, Other HPV Undetected 10/11/2018 Historical Provider HEALTH MAINTENANCE Final Result * Hm Colonoscopy (07/02/2016 9:20 AM EST) Colonoscopy Normal Normal Narrative An Francis - 07/02/2016 9:20 AM EST Recommended 10 year follow up Historical Provider HEALTH MAINTENANCE Edited Result - Final from Last 3 Months or Most Recently Relevant to Health Maintenance Insurance [employer] Care Teams Casino Investigator Relationship Specialty Start Date End Date Eulalia De Los Santos NP [address] [place] [address] PCP - General Family Medicine 12/31/23
--- OUTSIDE RECORDS SUMMARY | 2025-01-11 00:57 | XMS_ITS | Encounter Summary ---
Author Organization [employer] Address [address] [place] [address] Care Team Providers Care Supervisor Plate Pasting Name Role Phone Eulalia De Los Santos NP Primary Care Provider [phone] Reason for Visit * Reason Onset Date Comments Med Refill 10/10/2024 Encounter Details Date Type Department Care Team ([facility] st Contact Info) Description 10/10/2024 Telephone [facility] MEDICINE [address] [place], [place] [phone] Eulalia De Los Santos NP [address] [place], [place] [phone] Med Refill Social History Tobacco Use Types Packs/Day Years Used Date Smoking Tobacco: Former Cigarettes Smokeless Tobacco: Never Depression Answer Date Recorded Patient Health Questionnaire-9 Score 0 01/01/2023 Housing Stability Answer Date Recorded What is your housing situation today? I have [place] 03/08/[address] you [...] encounter Miscellaneous Notes * Telephone Encounter - Dinorah Dejesus LPN - 10/10/2024 11:01 AM EDT Medications were sent to [facility] on 08/17/24 90 day supply. * Telephone Encounter - Ellen Buenrostro - 10/10/2024 10:54 AM EDT TC from pt son requesting medication refill. Medications needing refill : levothyroxine (Synthroid, Levoxyl) 100 MCG tablet pravastatin (Pravachol) 80 MG tablet To be sent to: [facility] - [place], [place] - [address] documented in this encounter Plan of Treatment Upcoming Encounters Date Type Department Care Team (Late st Contact Info) Description 02/19/2025 2:00 PM EDT Office Visit [facility] MEDICINE [address] [place] [address] Eulalia De Los Santos NP [address] [place] [address] documented as of this encounter Visit Diagnoses Not on filedocumented in this encounter Additional Health Concerns Assessment Noted Time PHQ-9 Depression Total Score: 0 01/02/20 9:56 AM EDT documented as of this encounter Care Teams Supervisor Plate Pasting Relationship Specialty Start Date End Date Eulalia De Los Santos NP [address] [place] [address] PCP - General Family Medicine 12/31/23 documented as of this encounter
--- NOTE | 2025-01-11 01:43 | ED.SKABFB ---
HPI - Skin/Abscess/Foreign Bdy General Chief complaint: Skin/Abscess/Foreign Body Stated complaint: ? infection in rt foot/toe Time Seen by Provider: 01/11/25 01:19 Source: patient and family Mode of arrival: ambulatory Limitations: language barrier (Force Adjustment Supervisor services utilized.) History of Present Illness ED Provider: Kishan LOYA HPI narrative: The patient is a 64-year-old female with a history of schizophrenia presenting to the ED with her granddaughter reporting on Wednesday of last week she was picking at her toenail when the toenail came off in her hand. Patient did not seek medical care at that time, has been walking around town in sandals walking her dog. On Wednesday patient began developing pain/discomfort in the toe. Today patient's mother, with whom she lives, noted redness and swelling of the toe, patient advised her mother of the injury and increasing pain, at prompting ED evaluation. The patient and family denies associated fever/chills, nausea, vomiting or other systemic complaint. Denies any advancing erythema or drainage. The patient is not a diabetic. Related Data Previous Rx's ?Medication ?Instructions ?Recorded olanzapine 20 mg tablet (Zyprexa) 20 mg PO BEDTIME 30 days #30 tabs 02/08/23 trihexyphenidyl 2 mg tablet 2 mg PO BID 30 days #60 tabs 02/08/23 clindamycin HCl 150 mg capsule 450 mg (3 x 150 mg) PO TID 7 days 01/11/25 (Cleocin HCl) #63 caps Allergies Allergy/AdvReac Type Severity Reaction Status Date / Time cephalexin Allergy Unknown Unknown Verified 01/10/25 22:51 metronidazole Allergy Unknown Unknown Verified 01/10/25 22:51 monohydrate Allergy Unknown Unknown Uncoded 01/10/25 22:51 Review of Systems Review of Systems: Yes all other systems are reviewed and are negative PMFSH Social History Social History Household Members: Family Housing: Apartment Do you presently have visiting nurse or other home services: Yes Unable to assess alcohol history related to: Unknown Alcohol intake: former Patient Tobacco Use Status: Never used Tobacco e-Cigarette/Vaping Use: Never Used Second Hand Smoke Exposure: No Use of substances other than those prescribed or required for medical reasons: Unknown Advance Directives: No Advance Directives Information Provided: Yes Patient : No service: No Sexual orientation: Straight/Heterosexual Physical Exam Vital Signs: Vital Signs: Last Vital Signs Temp 98.3 F 01/11/25 00:40 Pulse 64 01/11/25 00:40 Resp 18 01/11/25 00:40 BP 140/60 H 01/11/25 00:40 Pulse Ox 100 01/11/25 00:40 O2 Del Method Room Air 01/11/25 00:40 BMI result Body Mass Index 32.2 CONSTITUTIONAL: The patient appears non-toxic, well nourished and in no acute distress. Vital signs as documented. HEAD: Atraumatic, normocephalic. EYES: EOMs grossly intact, pupils equal, conjunctiva clear, no exudate. ENT: Nares patent, no discharge. Airway patent, no audible stridor, visible mucosa is pink and moist without noted lesions. NECK: trachea is midline, no obvious masses or gross abnormalities. CHEST: Symmetric movement, normal appearance. LUNGS: Non-labored work of breathing. CARDIAC: No evidence of hypoperfusion. ABDOMEN: Nondistended, no obvious injury. : Deferred. EXTREMITIES: The toenail of the right great toe is absent, with mildly erythematous, non epithelialized skin noted to the nail bed. The bilateral feet are significantly dirty, with dirt, human hair, and dry skin, with onychomycosis noted to all 9 nails. The skin immediately proximal to the nail bed of the affected toe it appears swollen and erythematous, no fluctuance. Distal CSM is otherwise intact. Moves all extremities spontaneously without reported pain. No obvious injury or deformity noted. NEURO: Alert and oriented x3, CN II-XII appear grossly intact. Cerebellar Functioning grossly intact. Speech clear and appropriate. SKIN: Warm, dry, color appropriate. No rashes or lesions noted. Medical Decision Making Medical Decision Making MDM Narrative: 2:10 AM 01/11/2025 (Mino LOYA): The patient is a 64-year-old female presenting to the ED for evaluation of worsening swelling, pain, and erythema of the right great toe after accidental dislodgement of her toenail 1 week ago. The patient in the ED is nontoxic appearing, however the skin immediately proximal to the non epithelialized nail bed appears swollen and erythematous, concerning for developing cellulitis. There is no advancing lymphangitis, no systemic symptoms. The patient's laboratory evaluation shows no evidence of systemic infection, no leukocytosis, anemia, electrolyte abnormality, or MEG. LFTs are unremarkable. The patient's x-ray shows no fracture or evidence of developing osteomyelitis. The patient we will have her feet cleaned with a Betadine bath, patient is subsequently will be treated with clindamycin due to cephalosporin allergy, and anti-inflammatories. Patient will be discharged with Podiatry and PCP follow up. Differential Diagnosis Cellulitis, abscess, osteomyelitis, lymphangitis Admission/Observation Consideration of admission/observation: Escalation of care including admission/observation considered Lab Data MDM Lab Attestation statement: I reviewed the patient's lab results. 01/10/25 23:19 01/10/25 23:19 Labs: Lab Results 01/10/25 Range/Units 23:19 WBC 9.9 (4.8-10.8) X10*3/uL RBC 5.18 (4.20-5.50) X10*6/uL Hgb 12.8 (12.0-16.0) g/dl Hct 39.9 (37.0-47.0) % MCV 77.0 L (80.0-98.0) fL MCH 24.7 L (27.0-33.0) pg MCHC 32.1 (31.0-35.0) g/dl RDW 15.0 (11.0-16.0) % Plt Count 300 (160-400) X10*3/uL MPV 9.7 (9.4-12.3) fL Immature Gran % (Auto) 0.2 (0.0-0.4) % Neut % (Auto) 55.0 (45-73) % Lymph % (Auto) 36.3 (20-40) % Harris % (Auto) 5.9 (2-11) % Eos % (Auto) 2.2 (0-4) % Baso % (Auto) 0.4 (0-2) % Lymph # (Auto) 3.6 (1.2-4.9) X10*3/uL Harris # (Auto) 0.6 (0.1-1.2) X10*3/uL Eos # (Auto) 0.2 (0.0-0.4) X10*3/uL Baso # (Auto) 0.0 (0.0-0.2) X10*3/uL Abs Immat Gran (auto) 0.02 (0.00-0.03) X10*3/uL Absolute Neuts (auto) 5.5 (2.0-8.3) x10*3/uL Absolute Nucleated RBC 0.000 (0.0-0.012) X10*3/uL Nucleated RBC % (auto) 0.0 (0.0-0.2) /100WBC Sodium 140 (135-145) mmol/L Potassium 4.0 (3.3-5.1) mmol/L Chloride 108 (96-108) mmol/L Carbon Dioxide 23 (22-29) mmol/L Anion Gap 13 (12-20) BUN 18 H (9-16) mg/dL Creatinine 0.78 (0.5-1.4) mg/dL Estim Creat Clear Calc 73.2 Estimated GFR > 60 Random Glucose 115 (60-115) mg/dL Calcium 9.4 (8.4-10.2) mg/dL Total Bilirubin 0.2 (0.0-1.0) mg/dL AST 26 (5-31) U/L ALT 25 (0-31) U/L Alkaline Phosphatase 108 (39-117) U/L Total Protein 7.2 (6.5-8.0) g/dL Albumin 4.6 (3.5-5.0) g/dL Radiology Impression Discussion of test interpretation with radiology: I have reviewed the radiologist's reading. Radiologist Impression: CLINICAL HISTORY: right foot pain, ?infection Right foot three views Comparison: None provided Findings: No acute fracture or dislocation identified. No acute focal bony abnormality. No radiopaque foreign body noted. Impression: No acute bony abnormality This document has been electronically signed by: Bong Myers MD on 01/11/2025 00:21:35 Independent Historian Clinical information obtained from an independent historian. History obtained from or confirmed by: Other (Granddaughter) Tests considered The following testing was considered but not selected: CT extremity Prescription Management I considered prescription management with: Pain Medication and Antibiotic Discharge Plan Discharge Clinical Impression: Cellulitis Qualifiers: Site of cellulitis: extremity Site of cellulitis of extremity: toe Laterality: right Qualified Code(s): L03.031 - Cellulitis of right toe Avulsed toenail Qualifiers: Encounter type: initial encounter Qualified Code(s): S91.209A - Unspecified open wound of unspecified toe(s) with damage to nail, initial encounter Patient Disposition: Home, Self-Care Instructions: Cellulitis (ED), Nail Avulsion (ED) Additional Instructions: Thank you for choosing [facility]'s Emergency Department for your care today. Thankfully your x-ray and laboratory evaluation today shows no evidence of developing osteomyelitis or a systemic infection. At this time there is no indication for admission to the hospital or continued ED observation, and it is safe to discharge you home. Your symptoms are consistent with cellulitis of the right great toe likely as a result of your recent toenail loss. We have cleaned your foot with a Betadine bath, and initiated antibiotics. Please take clindamycin as prescribed until it is finished. You may take alternating (staggered) doses of ibuprofen 600mg and Tylenol 1000mg every 4 hours as needed for any additional pain. Please keep the area clean and dry. You may apply bacitracin ointment to the open area previously protected by the toenail. Please stay well hydrated and get plenty of rest. Please follow up with the Podiatry office by calling the number provided for outpatient follow up appointment. Please also follow up with your primary care physician for re-evaluation, additional management of your symptoms, and continued preventative care. If you do not have a primary care physician, please call the [facility] at [phone] to establish a new primary care physician. While waiting to establish your new primary care physician, you can call our Walk[facility]in [facility] at [phone] for non-emergency needs. Please return to the emergency department if you develop a severe or sudden change in your symptoms, a fever over 100.4 that does not improve with Tylenol or Ibuprofen, recurrent vomiting, or any other new or worsening symptoms or concerns. Prescriptions: New clindamycin HCl [Cleocin HCl] 150 mg capsule 450 mg PO TID 7 Days Qty: 63 0RF No Action trihexyphenidyl 2 mg tablet 2 mg PO BID 30 Days Qty: 60 1RF olanzapine [Zyprexa] 20 mg tablet 20 mg PO BEDTIME 30 Days Qty: 30 1RF Referrals: [facility] [Primary Care Provider, Medical] Clinical Impression: Cellulitis; Avulsed toenail [facility] [Provider Group] Clinical Impression: Cellulitis; Avulsed toenail Print Language: Sami
--- NOTE | 2025-01-11 01:44 | PC.NURSE ---
pt and family updated to progress of care
[2025-01-11 02:58] VITALS: BP 139/52; PULSE 78; RESP 18; TEMP 36.8; O2SAT 98
== END 2025-01-11 03:01 | disposition home or self-care (01) ==
PROVIDERS: Emergency Provider Emergency Medicine
DX: L03.031 Cellulitis of right toe (principal); S91.209A Unspecified open wound of unspecified toe(s) with damage to nail, initial encounter; X58.XXXA Exposure to other specified factors, initial encounter; Y93.89 Activity, other specified; Y92.89 Other specified places as the place of occurrence of the external cause; Y99.8 Other external cause status
CPT/HCPCS: 36415; 73630; 80053; 85025; 99283; 99284

== ENCOUNTER 2025-02-20 08:11 | Outpatient (REF) | payer MEDICAID, SELFPAY ==
--- OUTSIDE RECORDS SUMMARY | 2025-02-19 14:00 | XMS_ITS | Encounter Summary ---
Author Organization [email or web address] Address [address] [facility] [address] [place] [address] Care Team Providers Care Electric Motor Control Assembler Name Role Phone Eulalia De Los Santos NP Primary Care Provider [phone] Reason for Referral * Consultation (Routine) - Authorized Specialty Diagnoses / Procedures Referred By Quin ga Referred To Contact Dental Interior Painter / Dentistry Diagnoses Healthcare maintenance Eulalia De Los Santos NP [address] [place] [address] Phone: tel: fax: Referral ID Status Reason Start Date Expiration Date Visits Requested Visits Authorized [id number] Authorized Consult and Treat 02/19/2025 02/19/2026 1 1 * Imaging (Routine) - Authorized Specialty Diagnoses / Procedures Referred By Quin ga Referred To Contact Radiology Diagnoses Malignant neoplasm of female breast, unspecified estrogen receptor status, unspecified laterality, unspecified site of breast (HCC) Procedures BI Mammogram Screening Tomosynthesis Bilateral Eulalia De Los Santos NP [address] [place] [address] Phone: tel: fax: [address] Phone: tel: fax: Referral ID Status Reason Start Date Expiration Date V isits Requested Visits Authorized [id number] Authorized 02/19/2025 02/19/2026 1 1 Encounter Details Date Type Department Care Team (Latest Contact Info) Description 02/19/2025 2:00 PM EDT Office Visit [facility] [address] [place], [place] [phone] Eulalia De Los Santos NP [address] [place] [address] Hypothyroidism, unspecified type (Primary Dx); Undifferentiated schizophrenia (CMS/HCC) (HCC); Gastroesophageal reflux disease with esophagitis, unspecified whether hemorrhage; Malignant neoplasm of female breast, unspecified estrogen receptor status, unspecified laterality, unspecified site of breast (HCC); Healthcare maintenance; Encounter for vaccination; Encounter for immunization Social History Tobacco Use Types Packs/Day Years Used Date Smoking Tobacco: Former Cigarettes Smokeless Tobacco: Never Tobacco Cessation:Counseling Given: Not Answered Depression Answer Date Recorded Patient Health Questionnaire-9 Score 3 02/19/2025 Patient Health Questionnaire-9 Score 3 02/19/2025 Last PHQ-9: Questionnaire Data Not on file 1 Housing Stability Answer Date Recorded What is your housing situation today? I have braxton baldwin 02/19/[address] you li ve. Do you have problems with any of the following? None of the above 02/19/2025 Food Insecurity Answer Date Recorded Within the past 12 months, y ou worried that your food would run out before you got money to buy more: Never True 02/19/2025 Within the past 12 months,th e food you bought just didn't last and you didn't have enough money to get more: Never True 10/2024 Transportation Answer Date Recorded In the past 12 months, has l ack of transportation kept you from medical appts, meetings, work or from getting things needed for daily living? No 02/19/2025 Utilities Answer Date Recorded In the past 12 months, has t he electric, gas, oil or water company threatened to shut off services in your home? No 02/19/2025 Depression Answer Date Recorded Patient Health Questionnaire-2 Score 0 02/19/2025 Internet Access Answer Date Recorded Internet Access Q1 Yes 02/19/2025 Internet Access Q2 Not on file 02/19/2025 Comments Unknown Sex and Gender Information Value Date Recorded Sex Assigned at Female 03/16/2022 10:14 AM EDT Legal Sex Female 10:14 AM EDT Gender Identity Female 03/16/2022 10:14 AM EDT Sexual Orientation Choose not to disclose 2021 10:14 AM EDT documented as of this encounter Last Filed Vital Signs Vital Sign Reading Time Taken Comments Blood Pressure 126/78 02/19/2025 2:16 PM EDT Pulse 81 02/19/2025 2:16 PM EDT Temperature 36.7 C (98.1 F) 02/19/2025 2:16 PM EDT Respiratory Rate 12 02/19/2025 2:16 PM EDT Oxygen Saturation 98% 02/19/2025 2:16 PM EDT Inhaled Oxygen Concentration - - Weight 79.4 kg (175 lb) 02/19/2025 2:16 PM EDT Height 159 cm (5' 2.6 ) 02/19/2025 2:16 PM EDT Body Mass Index 31.4 02/19/2025 2:16 PM EDT documented in this encounter Functional Status * Over the past 2 weeks, how often have you been bothered by any of the following problems? Question Answer Date of Assessment Author Patient Health Questionnaire -2 Score 0 02/19/2025 2:20 PM EDT Kings Alcazar [place] * Little interest or pleasure in doing things Answer Date of Assessment Author Not at all 02/19/2025 2:20 PM EDT Javid Alcazar MA * Feeling down, depressed, or hopeless Answer Date of Assessment Author Not at all 02/19/2025 2:20 PM EDT Javid Alcazar MA * Trouble falling or staying asleep, or sleeping too much Answer Date of Assessment Author Not at all 02/19/2025 2:20 PM EDT Javid Alcazar MA * Feeling tired or having little energy Answer Date of Assessment Author Several days 02/19/2025 2:20 PM EDT Javid Alcazar MA * Poor appetite or overeating Answer Date of Assessment Author Several days 02/19/2025 2:20 PM EDT Javid Alcazar MA * Feeling bad about yourself - or that you are a failure or have let yourself or your family down Answer Date of Assessment Author Not at all 02/19/2025 2:20 PM EDT Javid Alcazar MA * Trouble concentrating on things, such as reading the newspaper or watching television Answer Date of Assessment Author Several days 02/19/2025 2:20 PM EDT Javid Alcazar MA * Moving or speaking so slowly that other people could have noticed? Or the opposite - being so fidgety or restless that you have been moving around a lot more than usual. Answer Date of Assessment Author Not at all 02/19/2025 2:20 PM EDT Javid Alcazar MA * Thoughts that you would be better off or hurting yourself in some way Answer Date of Assessment Author Not at all 02/19/2025 2:20 PM EDT Javid Alcazar MA * Patient Health Questionnaire-9 Score Answer Date of Assessment Author 3 02/19/2025 2:20 PM EDT Javid Alcazar MA * Over the last 2 weeks, how often have you been bothered by any of the following problems? Question Answer Date of Assessment Author Feeling nervous, anxious, or on edge 1 02/19/2025 2:20 PM EDT Kings Alcazar MA Not being able to stop or control worrying 0 02/19/2025 2:20 PM MILADIST Kings Alcazar MA Worrying too much about different things 0 02/19/2025 2:20 PM MILADIST Kings Alcazar MA Trouble relaxing 1 02/19/2025 2:20 PM EDT Javid Carver MA Being so restless that it is hard to sit still 1 02/19/2025 2:20 PM MILADIST Kings Alcazar MA Becoming easily annoyed or irritable 1 02/19/2025 2:20 PM MILADIST Kings Alcazar MA Feeling afraid as if somethi ng awful might happen 0 02/19/2025 2:20 PM MILADIST Kings Alcazar MA DEAN-7 Total Score 4 02/19/2025 2:20 PM EDT Javid Alcazar MA documented as of this encounter Miscellaneous Notes * Assessment & Plan Note - Eulalia De Los Santos NP - 02/19/2025 2:00 PM EDTAssociated Problem(s): Hypothyroidism Orders: TSH; Future levothyroxine (Synthroid, Levoxyl) 100 MCG tablet; TAKE 1 TABLET (100 MCG) BY MOUTH IN THE MORNING.NEEDS OFFICE VISIT FOR MEDS * Assessment & Plan Note - Eulalia De Los Santos NP - 02/19/2025 2:00 PM EDTAssociated Problem(s): Schizophrenia (HCC) Orders: Lipid Panel, Standard; Future Comprehensive Metabolic Panel; Future Hemoglobin A1c; Future * Assessment & Plan Note - Eulalia De Los Santos NP - 02/19/2025 2:00 PM EDTAssociated Problem(s): Gastroesophageal reflux disease with esophagitis documented in this encounter Plan of Treatment Upcoming Encounters Date Type Department Care Team (Late st Contact Info) Description 04/24/2025 1:00 PM EST Procedure Visit [facility] [address] [place] [address] Eulalia De Los Santos NP [address] [place] [address] Scheduled Orders Name Type Priority Associated Diagnoses Orde r Schedule Lipid Panel, Standard Lab Routine Undifferentiated schizophrenia (CMS/HCC) (HCC) Expected: 02/19/2025 (Approximate), Expires: 02/19/2026 Comprehensive Metabolic Panel Lab Routine Undifferentiated schizophrenia (CMS/HCC) (HCC) Expected: 02/19/2025 (Approximate), Expires: 02/19/2026 Hemoglobin A1c Lab Routine Undifferentiated schizophrenia (CMS/HCC) (HCC) Expected: 02/19/2025 (Approximate), Expires: 02/19/2026 TSH Lab STAT Hypothyroidism, unspecified type Expected: 02/19/2025 (Approximate), Expires: 02/19/2026 BI Mammogram Screening Tomosynthesis Bilateral Imaging Routine Malignant neoplasm of female breast, unspecified estrogen receptor status, unspecified laterality, unspecified site of breast (HCC) Expected: 02/19/2025, Expires: 04/21/2026 CBC auto differential Lab Routine Healthcare maintenance Expected: 02/19/2025 (Approximate), Expires: 02/19/2026 Scheduled Referrals Name Type Priority Associated Diagnoses Orde r Schedule Referral to [facility] Dental Adult Outpatient Referral Routine Healthcare maintenance Expected: 02/19/2025 (Approximate), Expires: 02/19/2026 documented as of this encounter Visit Diagnoses Diagnosis Hypothyroidism, unspecified type- Primary Undifferentiated schizophrenia (CMS/HCC) (HCC) Gastroesophageal reflux disease with esophagitis, unspecified whether hemorrhage Malignant neoplasm of female breast, unspecified estrogen receptor status, unspecified laterality, unspecified site of breast ([facility]) Healthcare maintenance Encounter for vaccination Encounter for immunization documented in this encounter Additional Health Concerns Assessment Noted Time PHQ-9 Depression Total Score: 3 02/20/20 25 2:20 PM EDT documented as of this encounter Care Teams Electric Motor Control Assembler Relationship Specialty Start Date End Date Eulalia De Los Santos NP [address] [place] [phone] PCP - General Family Medicine 12/31/23 documented as of this encounter
--- OUTSIDE RECORDS SUMMARY | 2025-02-20 08:28 | XMS_ITS | Encounter Summary ---
Author Organization [employer] Address [address] [facility] 7t [place] [address] Care Team Providers Care Electrical Line Worker Name Role Phone Anahi Mccallum Primary Care Provider [phone] Eulalia De Los Santos NP Primary Care Provider [phone] Encounter Details Date Type Department Care Team (Late Contact Info) Description 01/05/2023 Orders Only [facility] [address] [place] [address] Anahi Mccallum FNP [address] [place] [address] Right ankle pain, unspecified chronicity (Primary Dx) [...] Encounters Date Type Department Care Team (Late Contact Info) Description 04/24/2025 1:00 PM EST Procedure Visit [facility] [address] [place] [address] Eulalia De Los Santos NP [address] [place] [address] documented as of this encounter Procedures Procedure [...] (FISHMAN) (02/01/2023 9:14 PM EDT) IDNOW SERIAL# [id number] [facility] COVID-19 TEST Negative Negative [facility] COVID-19 NOTE See Note [facility] Comment: Results are for the identification of SARS-CoV2 RNA. TheSARS-CoV2 RNA is generally detectable in respiratory samplesduring the acute phase of infection. Positive results areindicative of the presence of SARS-CoV-2 RNA; clinicalcorrelation with patient history and other diagnosticinformation is necessary to determine patient infectionstatus. Positive results do not rule out bacterial infectionor co- infection with other viruses.Testing facilities within the [place] and [facility] are required to report all [...] use by authorized laboratories.Testing performed on the [employer] utilizing NAAT. 02/01/2023 9:14 PM EDT 02/01/2023 9:32 PM EDT [facility] Exter nal Provider LAB MOLECULAR DIAGNOSTICS ORDERABLES Final Result Performing Organization Address [facility]/ZIP Co de Phone Number [facility] [address] [place] [phone] * Acetaminophen level (02/01/2023 4:27 PM EDT) [facility] Acetaminophen LAB <17 <30 mcg/mL [facility] 02/01/2023 4:27 PM EDT 02/01/2023 4:32 PM EDT Generic External Data Provider LAB BLOOD ORDERAB LES Final Result Performing Organization Address [facility] Co de Phone Number [facility] [address] [place] [address] [phone] * (ABNORMAL) Salicylate (02/01/2023 4:27 PM EDT) Salicylate <5.0(L) 15 - 30 mg/dL [facility] 02/01/2023 4:27 PM EDT 02/01/2023 4:32 PM EDT [facility] External Provider LAB BLO OD ORDERABLES Final Result Performing Organization Address [facility] Co de Phone Number [facility] [address] [place] [address] [phone] * Ethanol (02/01/2023 4:27 PM EDT) ETHANOL (MG/DL) IN SER/PLAS <10 mg/dL [facility] Comment:Serum/plasma ethanol results are to be used formedical/treatment purposes only. 02/01/2023 4:27 PM EDT 02/01/2023 4:32 PM EDT Generic External Data Provider LAB BLOOD ORDERAB LES Final Result Performing Organization Address [facility] de Phone Number [facility] [address] [place] [address] [phone] * (ABNORMAL) Comprehensive Metabolic Panel (02/01/2023 4:27 PM EDT) Sodium 139 135 - 145 mmol/L [facility] Potassium 3.5 3.3 - 5.1 mmol/L [facility] Chloride 105 96 - 108 mmol/L [facility] Carbon Dioxide 27 22 - 29 mmol/L [facility] Anion Gap 11(L) 12 - 20 [facility] Urea Nitrogen (BUN) 10 9 - 16 mg/dL [facility] Creatinine, Serum 0.78 0.5 - 1.4 mg/dL [facility] Creatinine Clr Calc Pharmacy 82.0 [facility] Comment:Provided height and weight: 165.1 cm,83.915 kg.eGFR (calculated from the MDRD study equation) and eCrCl(calculated from the Cockcroft-Gault equation) are based ondifferent parameters and may not yield comparable results.If eCrCl result is absurd, please check patient'sheight/weight. Estimated Glomerular Filt Rate >60 [facility] Comment:NOTE: For -Am erican individuals, multiply the result by 1.210.Chronic Kidney Disease: Estimated GFR < 60 mL/min/[id number] Kidney Disease: Estimated GFR < 15 mL/min/1.73m2 Glucose 128(H) 60 - 115 mg/dL [facility] Calcium 9.9 8.4 - 10.2 mg/dL [facility] Bilirubin, Total 0.2 0.0 - 1.0 mg/dL [facility] Aspartate Amino Transferase 24 5 - 31 U/L [facility] Alanine Aminotransferase 24 0 - 31 U/L [facility] Total Protein 7.5 6.5 - 8.0 g/dL [facility] Albumin Level 4.6 3.5 - 5.0 g/dL [facility] Alkaline Phosphatase 97 39 - 117 U/L [facility] 02/01/2023 4:27 PM EDT 02/01/2023 4:32 PM EDT us [facility] External Provider LAB BLO OD ORDERABLES Final Result [facility] [address] [place] [phone] * (ABNORMAL) CBC auto differential (02/01/2023 4:27 PM EDT) White Blood Count 7.4 4.8 - 10.8 X10*3/uL [facility] Red Blood Count 5.83(H) 4.20 - 5.50 X10*6/uL [facility] Hemoglobin 14.0 12.0 - 16.0 g/dl [facility] Hematocrit 44.1 37.0 - 47.0 % [facility] Mean Corpuscular Volume 75.6(L) 80.0 - 98.0 fL [facility] Mean Corpuscular Hemoglobin 24.0(L) 27.0 - 33.0 pg [facility] Mean Corpuscular HGB Conc 31.7 31.0 - 35.0 g/dl [facility] Red Cell Distribution Width 15.0 11.0 - 16.0 % [facility] Platelet Count 320 160 - 400 X10*3/uL [facility] Mean Platelet Volume 9.8 9.4 - 12.3 fL [facility] Neutrophils Percent Auto 64.3 45 - 73 % [facility] Imm Gran Pct Auto 0.4 0.0 - 0.4 % [facility] Lymphocytes Percent Auto 28.4 20 - 40 % [facility] Monocytes Percent Auto 4.8 2 - 11 % [facility] Eosinophils Percent Auto 1.7 0 - 4 % [facility] Basophils Percent Auto 0.4 0 - 2 % [facility] NRBC Pct Auto 0.0 0.0 - 0.2 /100WBC [facility] Neutrophils Absolute Auto 4.8 2.0 - 8.3 x10*3/uL [facility] Imm Gran Abs Auto 0.03 0.00 - 0.03 X10*3/uL [facility] Lymphocytes Absolute Auto 2.1 1.2 - 4.9 X10*3/uL [facility] Monocytes Absolute Auto 0.4 0.1 - 1.2 X10*3/uL [facility] Eosinophils Absolute Auto 0.1 0.0 - 0.4 X10*3/uL [facility] Basophils Absolute Auto 0.0 0.0 - 0.2 X10*3/uL [facility] NRBC Abs Auto 0.000 0.0 - 0.012 X10*3/uL [facility] 02/01/2023 4:27 PM EDT 02/01/2023 4:32 PM EDT us [facility] External Provider LAB BLO OD ORDERABLES Final Result [facility] [address] [place] [phone] * Drug Monitoring, Panel 1, Screen, Urine (02/01/2023 4:03 PM EDT) Opiate Screen Urine Not Detected Not Detect [facility] Comment:Opiate cut-off is 30 0 ng/mL.Positive results are unconfirmed and should not be used fornon-medical purposes. Barbiturates, Urine Not Detected Not Detect [facility] Comment:Barbiturate cut-off is 200 ng/mL.Positive results are unconfirmed and should not be used fornon-medical purposes. Phencyclidine Screen Urine Not Detected Not Detect [facility] Comment:Phencyclidine cut-of f is 25 ng/mL.Positive results are unconfirmed and should not be used fornon-medical purposes. Amphetamine Screen Urine Not Detected Not Detect [facility] Comment:Amphetamine cut-off is 1000 ng/mL.Positive results are unconfirmed and should not be used fornon-medical purposes. Benzodiazepines Screen Urine Not Detected Not Detect [facility] Comment:Benzodiazepine cut-o ff is 200 ng/mL.Positive results are unconfirmed and should not be used fornon-medical purposes. Cocaine Screen Urine Not Detected Not Detect [facility] Comment:Cocaine cut-off is 3 00 ng/mL.Positive results are unconfirmed and should not be used fornon-medical purposes. Cannabinoid Screen Urine Not Detected Not Detect [facility] Comment:Cannabinoid cut-off is 50 ng/mL.Positive results are unconfirmed and should not be used fornon-medical purposes. FENTANYL URINE Not Detected Not Detect [facility] Comment:Fentanyl cut-off is 1 ng/mL.Positive results are unconfirmed and should not be used fornon-medical purposes. 02/01/2023 4:03 PM EDT 02/01/2023 4:15 PM EDT us [facility] External Provider LAB URI NE ORDERABLES Final Result [facility] [address] [place] [phone] [phone] * (ABNORMAL) Urinalysis, Complete, with Reflex to Culture (02/01/2023 4:03 PM EDT) Color Urine Yellow [facility] Appearance Urine Clear [facility] PH 5.5 5.0 - 9.0 [facility] Glucose Urine UA Negative Negative mg/dL [facility] Urine Blood Negative Negative [facility] Specific [place] - Urine 1.010 1.005 - 1.025 [facility] Urine Protein Negative Neg-Trace mg/dL [facility] Urine Ketones Negative Negative mg/dL [facility] Nitrite Urine Negative Negative [facility] Leukocyte Esterase Urine Trace(A) Negative [facility] RBC Urine 0-2 0 - 2 /HPF [facility] Urine WBC 0-5 0 - 5 /HPF [facility] Urine Squamous Epithelial Cell 0-2 0 - 2 /HPF [facility] Urine Bacteria None Seen None Seen [facility] Hyaline Casts, Urine 0-2 0 - 2 /LPF [facility] 02/01/2023 4:03 PM EDT 02/01/2023 4:15 PM EDT Narrative [facility] - 02/01/2023 4:38 PM EDT [id number], Clean Catch us [facility] External Provider LAB URI NE ORDERABLES Final Result [facility] [address] [place] [phone] documented in this encounter Visit Diagnoses Diagnosis Right ankle pain, unspecified chronicity- Primary documented in this encounter Additional Health Concerns Assessment Noted Time PHQ-9 Depression Total Score: 0 01/02/20 23 9:56 AM EDT documented as of this encounter Care Teams Electrical Line Worker Relationship Specialty Start Date End Date Anahi Mccallum FNP [address] [place] [address] PCP - General Family Medicine 02/20/22 12/30/23 Eulalia De Los Santos NP [address] [place] [address] PCP - General Family Medicine 12/31/23 documented as of this encounter
--- OUTSIDE RECORDS SUMMARY | 2025-02-20 08:28 | XMS_ITS | Encounter Summary ---
Author Organization [employer] Address [address] [facility] [address] [place] [address] Care Team Providers Care Piping Designer Name Role Phone Eulalia De Los Santos NP Primary Care Provider [phone] Reason for Visit * Reason Onset Date Comments Med Refill 10/10/2024 Encounter Details Date Type Department Care Team ([facility] st Contact Info) Description 10/10/2024 Telephone [facility] [address] [place], [place] [phone] Eulalia De Los Santos NP [address] [place], [place] [phone] Med Refill Social History Tobacco Use Types [...] 11:01 AM EDT Medications were sent to [facility] on 08/17/24 90 day supply. * Telephone Encounter - Ellen Buenrostro - 10/10/2024 10:54 AM EDT TC from pt son requesting medication refill. Medications needing refill : levothyroxine (Synthroid, Levoxyl) 100 MCG tablet pravastatin (Pravachol) 80 MG tablet To be sent to: [facility] - - [address] documented in this encounter Plan of Treatment Upcoming Encounters Date Type Department Care Team (Late st Contact Info) Description 04/24/2025 1:00 PM EST Procedure Visit [facility] [address] [place] [address] Eulalia De Los Santos NP [address] [place] [address] documented as of this encounter Visit Diagnoses Not on filedocumented in this encounter Additional Health Concerns Assessment Noted Time PHQ-9 Depression Total Score: 0 01/02/20 9:56 AM EDT documented as of this encounter Care Teams Piping Designer Relationship Specialty Start Date End Date Eulalia De Los Santos NP [address] [place] [address] PCP - General Family Medicine 12/31/23 documented as of this encounter
--- OUTSIDE RECORDS SUMMARY | 2025-02-20 08:28 | XMS_ITS | Encounter Summary ---
Author Organization [employer] [facility] Address [address] [facility] 7t [place] [address] Care Team Providers Care Timber Management Professor Name Role Phone Anahi Mccallum Primary Care Provider [phone] Eulalia De Los Santos NP Primary Care Provider [phone] Encounter Details Date Type Department Care Team (Latest Contact Info) Description 07/06/2018 Abstract [facility] CONVERSIONS Dental, Provider, DDS Social History [...] Care Team ( st Contact Info) Description 04/24/2025 1:00 PM EST Procedure Visit [facility] MED[facility] [address] [place] [address] Eulalia De Los Santos NP [address] [place] [address] documented as of this encounter Visit Diagnoses Not on filedocumented in this encounter Care Teams Timber Management Professor Relationship Specialty Start Date End Date Anahi Mccallum FNP [address] [place] [address] PCP - General Family Medicine 02/20/22 12/30/23 Eulalia De Los Santos NP [address] [place] [address] PCP - General Family Medicine 12/31/23 documented as of this encounter
--- OUTSIDE RECORDS SUMMARY | 2025-02-20 08:28 | XMS_ITS | Clinical Summary ---
Author Organization [employer] Address [address] [facility] [address] 7t [place] [address] Care Team Providers Care Back Pad Inspector Name Role Phone Magali Eulalia ARIE Primary Care Provider [phone] Allergies Active Allergy Reactions Criticality Noted Date Comments Cephalexin 03/11/2015 Other reaction(s): hives Metronidazole 09/12/2010 Other reaction(s): rash: local to where applied, Medications * This document contains information received from the source organization and may not represent a complete record from that organization. OLANZapine (ZyPREXA) 20 MG tablet 09/09/19 23 Active trihexyphenidyl (Artane) 2 MG tablet Take 1 tablet by mouth every 12 (twelve) hours. 07/03/19 15 Active omeprazole (PriLOSEC) [address] capsule TAKE 1 CAPSULE (20 MG) BY MOUTH BEFORE BREAKFAST. 30 capsule 2 02/20/20 25 Active pravastatin (Pravachol) 80 MG tablet Take 1 tablet (80 mg) by mouth at bedtime. 90 tablet 02/20/20 25 Active levothyroxine (Synthroid, Levoxyl) 100 MCG tabletIndicatio ns:Hypothyroidi sm, unspecified type TAKE 1 TABLET (100 MCG) BY MOUTH IN THE MORNING. NEEDS OFFICE VISIT FOR MEDS 30 tablet 02/20/20 25 Active Multiple Vitamin (Tab-A-Olvin) tablet TAKE 1 TABLET BY MOUTH ONCE PER DAY WITH FOOD. NEEDS OFFICE VISIT 30 tablet 02/20/20 25 Active pravastatin (Pravachol) 80 MG tablet TAKE 1 TABLET (80 MG) BY MOUTH AT BEDTIME. 90 tablet 08/18/19 25 025 Discontinued(Re order (will not trigger notification to Pharmacy)) levothyroxine (Synthroid, Levoxyl) 100 MCG tabletIndicatio ns:Hypothyroidi sm, unspecified type TAKE 1 TABLET (100 MCG) BY MOUTH IN THE MORNING. NEEDS OFFICE VISIT FOR MEDS 30 tablet 11/15/19 25 025 Discontinued(Re order (will not trigger notification to Pharmacy)) Multiple Vitamin (Tab-A-Olvin) tablet TAKE 1 TABLET BY MOUTH ONCE PER DAY WITH FOOD. NEEDS OFFICE VISIT 30 tablet 11/15/19 25 025 Discontinued(Re order (will not trigger notification to Pharmacy)) omeprazole (PriLOSEC) [address] capsule TAKE 1 CAPSULE (20 MG) BY MOUTH BEFORE BREAKFAST. 30 capsule 2 12/14/19 25 025 Discontinued(Re order (will not trigger notification to Pharmacy)) Active Problems Problem Noted Date Diagnosed Date Gastroesophageal reflux disease with esophagitis 02/19/2025 Assessment & Plan (02/19/2025 2:42 PM EDT): Hypercholesterolemia 03/11/2015 Hypothyroidism 03/11/2015 Assessment & Plan (02/19/2025 2:42 PM EDT): Orders: TSH; Future levothyroxine (Synthroid, Levoxyl) 100 MCG tablet; TAKE 1 TABLET (100 MCG) BY MOUTH IN THE MORNING. NEEDS OFFICE VISIT FOR MEDS Obesity 03/11/2015 Schizophrenia 03/11/2015 Assessment & Plan (02/19/2025 2:42 PM EDT): Orders: Lipid Panel, Standard; Future Comprehensive Metabolic Panel; Future Hemoglobin A1c; Future Encounters * This document contains information received from the source organization and may not represent a complete record from that organization. Date Type Department Care Team Description 02/19/2025 2:00 PM EDT Office Visit [facility] MEDICINE [address] [place] [address] Eulalia De Los Santos NP Hypothyroidism, unspecified type (Primary Dx); Undifferentiated schizophrenia (CMS/HCC) (HCC); Gastroesophageal reflux disease with esophagitis, unspecified whether hemorrhage; Malignant neoplasm of female breast, unspecified estrogen receptor status, unspecified laterality, unspecified site of breast (HCC); Healthcare maintenance; Encounter for vaccination; Encounter for immunization 02/19/2025 Travel 02/16/2025 Telephone [facility] MEDICINE [address] [place], [place] [phone] Javid Alcazar MA chart prep 02/12/2025 Patient Outreach [facility] [address] [place] [address] Eulalia De Los Sanots NP Pre-visit Planning ([facility] unable to reach [facility] ) 12/12/2024 Refill [facility] [address] [place] [address] Eulalai De Los Santos NP from Last 3 Months Immunizations Immunization Administration Dates Next Due Influenza injectable quadriv alent IIV4 with preservative 03/11/2018,04/22/2017,03/11/2015 Influenza injectable quadriv alent preservative free 01/30/2020,05/15/2019,05/20/2016 Influenza, IIV3, injectable 02/26/2021, 4,01/28/2011 Influenza, Split (incl. selene fied surface antigen) 02/03/2013,01/11/2012 Influenza, seasonal, injecta ble, preservative free 02/19/2025 Pfizer Covid-19 Vaccine 12+ 02/19/2025 TD (adult), 2 Lf tetanus tox oid, preservative free, adsorbed 10/06/2002 Tdap 02/19/2025,11/27/2010 Zoster, Recombinant 12/14/2019,05/15/2019 Social History Tobacco Use [...] Mass Index 31.4 02/19/2025 2:16 PM EDT Plan of Treatment Upcoming Encounters Date Type Department Care Team (Late st Contact Info) Description 04/24/2025 1:00 PM EST Procedure Visit [facility] MEDICINE [address] [place] [address] Eulalia De Los Santos NP [address] [place] [address] Health Maintenance Due Date Last Done Comments CT Colonography 1962 FIT DNA/Cologuard 1962 FIT 1962 FOBT 1962 HIV Screening 1962 Sigmoidoscopy 1962 Hepatitis C Screening 02/11/1980 Pneumococcal Vaccine: 50+ Years (1 of 1 - PCV) 02/11/2012 Cervical Cancer Screening 10/12/2023 HPV/Cotest 10/12/2023 10/11/2018, 10/11/2018 Pap Smear 10/12/2023 10/11/2018 Alcohol/Substance Use Screening 02/19/2026 02/19/2025 Depression Screening 02/19/2026 02/19/2025, 02/20/20 25 Disability Screening 02/19/2026 02/19/2025 SDOH Screening 02/19/2026 02/19/2025 Tobacco Screening 02/19/2026 02/19/2025 Colonoscopy 07/02/2026 07/02/2016 Colorectal Cancer Screening 07/02/2026 Lipid Panel 01/02/2028 01/01/2023, 0505/2021, 07/30/2020 DTaP/Tdap/Td Vaccines (3 - Td or Tdap) 02/19/2035 02/19/2025, 11/27/2010, 10/06/2002 RSV Patients and Patients Aged 60 years or older (1 - 1-dose 75+ series) 2037 Zoster Vaccines Completed 12/14/2019, 05/15/2019 COVID-19 Vaccine Completed 02/19/2025, 08/2020, 02/27/2021 Influenza Vaccine Completed 02/19/2025, , 02/26/2021, Additional history exists HIB Vaccines Aged Out No longer eligi [...] medical examination at a health care facility ZZZ HISTORICAL HPV MRNA E6/E7 Routine 10/11/2018 12:00 AM EDT HM PAP/HPV Routine 10/11/2018 HM COLONOSCOPY Routine 07/02/2016 9:20 AM EST from Last 3 Months or Most Recently Relevant to Health Maintenance Results * Lipid Panel, Standard (01/01/2023 11:12 AM EDT) Triglycerides 91 mg/dL [facility] Comment:Desirable Triglyceri de: less than 150 mg/dLBorderline High Triglyceride 150-199 mg/dLHigh Triglyceride: 200-499 mg/dLVery High Triglyceride: greater than or equal to 5OO mg/dL Cholesterol 225 mg/dL [facility] Comment:Desirable Cholestero l: less than 200 mg/dLBorderline High Cholesterol: 200-239 mg/dLHigh Cholesterol: greater than 239 mg/dL LDL Cholesterol Calculated 147 mg/dl [facility] Comment:Desirable LDL: less than 100 mg/dLNear Optimal/Above Optimal LDL: 110- 129 mg/dLBorderline High LDL: 130-159 mg/dLHigh LDL: 160-189 mg/dLVery High LDL: greater than or equal to 190 mg/dL HDL Cholesterol 60 mg/dL [facility] Comment:Desirable HDL: great er than 40 mg/dL Note: This HDL assay may give artificially low results in patients with liver disease. Blood Venous blood specimen / Unknown 01/01/2023 11:12 AM EDT 01/01/2023 1:19 PM EDT Anahi Mccallum FREIGHT SERVICE INSPECTOR LAB BLOOD ORDERABLES Final Resu lt [facility] [address] [place] [address] [phone] * HPV mRNA E6/E7 (10/11/2018 12:00 AM EDT) HPV mRNA E6/E7 Not Detected NOT DETECTED [facility] Comment: This test was performed using the APTIMA(R) HPV Assay ([employer] This assay detects E6/E7 viral messenger RNA (mRNA) from 14 high-risk HPV types (16,18,31,33,35,39,45,51, 52,56,58,59,66,68). For additional information please refer to: http://education.Paladion/faq/JUE701c7 (This link is being provided for informational/ educational purposes only.) The analytical performance characteristics of this assay have been determined by [employer] [place], [place]. The modifications have not been cleared or approved by the FDA. This assay has been validated pursuant to the CLIA regulations and is used for clinical purposes. Test Performed by [facility], [employer] [facility], [address] [place] [address] Ector Lawrence M.D., Ph.D., Director of Laboratories , CLIA [id number] Please note: Effective 01/27/2016, HPV testing will be performed using [employer]'s APTIMA test which targets mRNA. Detecting mRNA instead of DNA, as in older methods, offers significant improvements in specificity. 10/11/2018 Linda Renae NP HISTORICAL/NON ORDERABLE LABS Fi nal Result [facility] [address] * Hm Pap Smear (10/11/2018) Pap Negative for intraephithelial [...] Most Recently Relevant to Health Maintenance Insurance [employer] Care Teams Back Pad Inspector Relationship Specialty Start Date End Date Eulalia De Los Santos NP [address] [place] [address] PCP - General Family Medicine 12/31/23
--- OUTSIDE RECORDS SUMMARY | 2025-02-20 08:28 | XMS_ITS | Encounter Summary ---
Author Organization [employer] Address [address] [facility] [facility] [address] 7t [place] [address] Care Team Providers Care Pin Setter Name Role Phone AlpaEulalia hall ARIE Primary Care Provider [phone] Encounter Details Date Type Department Care Team (Latest Contact Info) Description 02/19/2025 Travel Social History Tobacco Use Types Packs/Day Years [...] AM EDT documented as of this encounter Functional Status * Over the [...] at all 02/19/2025 2:20 PM EDT Javid Alcazra MA * Feeling tired or having little [...] Assessment Author Several days 02/19/2025 2:20 PM MILADIST Javid Alcazar MA * Moving or speaking [...] edge 1 02/19/2025 2:20 PM EDT Kings Aclazar MA Not being able to stop or control worrying 0 02/19/2025 2:20 PM EDT Kings Alcazar MA Worrying too much about different things 0 02/19/2025 2:20 PM EDT Kings Alcazar MA Trouble relaxing 1 02/19/2025 2:20 PM EDT Javid Carver MA Being so restless that it is hard to sit still 1 02/19/2025 2:20 PM EDT Kings Alcazar MA Becoming easily annoyed or irritable 1 02/19/2025 2:20 PM EDT Kings Alcazar MA Feeling afraid as if somethi ng awful might happen 0 02/19/2025 2:20 PM EDT Kings Alcazar MA DEAN-7 Total Score 4 02/19/2025 2:20 PM EDT Javid Alcazar MA documented as of this encounter Plan of Treatment Upcoming Encounters Date Type Department Care Team (Late st Contact Info) Description 04/24/2025 1:00 PM EST Procedure Visit [facility] MEDICINE [address] [place] [address] Eulalia De Los Santos NP [address] [place] [address] documented as of this encounter Visit Diagnoses Not on filedocumented in this encounter Additional Health Concerns Assessment Noted Time PHQ-9 Depression Total Score: 3 02/20/20 25 2:20 PM EDT documented as of this encounter Care Teams Pin Setter Relationship Specialty Start Date End Date Eulalia De Los Santos NP [address] [place] [address] PCP - General Family Medicine 12/31/23 documented as of this encounter
--- OUTSIDE RECORDS SUMMARY | 2025-02-20 08:28 | XMS_ITS | Encounter Summary ---
Author Organization [employer] Address [address] [facility] [address] [facility] [facility] [address] [facility] [address] [place] [address] Care Team Providers Care Building Insulation Installer Name Role Phone Eulalia De Los Santos NP Primary Care Provider Reason for Visit * Reason Onset Date Comments chart prep 02/16/2025 Encounter Details Date Type Department Care Team ([facility] Contact Info) Description 02/16/2025 Telephone [facility] MEDICINE [address] [place], [place] [phone] Javid Alcazar MA chart prep Social History Tobacco Use Types Packs/Day Years [...] encounter Miscellaneous Notes * Telephone Encounter - Javid Alcazar MA - 02/16/2025 10:15 AM EDT Chart Prep Labs: done Images: not applicable Referrals: not applicable Vaccines due: Covid, Flu, PCV20, Tdap, Td, and DTAP Screenings: mammogram and pap smear Overdue care gaps: SBIRT, SDOH, PHQ-9, DEAN-7, Oral health screening, Disability screen, and Tobacco documented in this encounter Plan of Treatment Upcoming Encounters Date Type Department Care Team (Late st Contact Info) Description 04/24/2025 1:00 PM EST Procedure Visit [facility] MEDICINE [address] [place] [address] Eulalia De Los Santos NP [address] [place] [address] documented as of this encounter Visit Diagnoses Not on filedocumented in this encounter Additional Health Concerns Assessment Noted Time PHQ-9 Depression Total Score: 0 01/02/20 23 9:56 AM EDT documented as of this encounter Care Teams Building Insulation Installer Relationship Specialty Start Date End Date Eulalia De Los Santos NP [address] [place] [address] PCP - General Family Medicine 12/31/23 documented as of this encounter
--- OUTSIDE RECORDS SUMMARY | 2025-02-20 08:29 | XMS_ITS | Encounter Summary ---
Author Organization [employer] Address [address] [facility] [address] 7[address] [place] [address] Care Team Providers Care Hot Plate Plywood Press Operator Name Role Phone Eulalia De Los Santos NP Primary Care Provider [phone] Reason for Visit * Reason Comments Med Refill Encounter Details Date Type Department Care Team ([facility] st Contact Info) Description 04/20/[address] [facility] MEDICINE [address] [place], [place] [phone] Anahi Mccallum FNP [address] [place], [place] [phone] Hypothyroidism, unspecified type Social History Tobacco Use [...] Description 04/24/2025 1:00 PM EST Procedure Visit [facility] MEDICINE [address] [place] [address] Eulalia De Los Santos NP [address] [place] [address] documented as of this encounter Visit Diagnoses Diagnosis Hypothyroidism, unspecified type documented in this encounter Additional Health Concerns Assessment Noted Time PHQ-9 Depression Total Score: 0 01/02/20 23 9:56 AM EDT documented as of this encounter Care Teams Hot Plate Plywood Press Operator Relationship Specialty Start Date End Date Eulalia De Los Santos NP [address] [place] [address] PCP - General Family Medicine 12/31/23 documented as of this encounter
--- OUTSIDE RECORDS SUMMARY | 2025-02-20 08:29 | XMS_ITS | Encounter Summary ---
Author Organization [employer] Address [address] [facility] 7t [place] [address] Care Team Providers Care Clinical Dietetic Technician Name Role Phone Eulalia De Los Santos NP Primary Care Provider [phone] Reason for Visit * Reason Comments Med Refill Encounter Details Date Type Department Care Team ([facility] st Contact Info) Description 04/10/2024 Refill [facility] MEDICINE [address] [place], [place] [phone] Anahi Mccallum FNP [address] [place] [address] Social History Tobacco Use Types Packs/Day Years [...] Description 04/24/2025 1:00 PM EST Procedure Visit [facility] MEDICINE [address] [place] [address] Eulalia De Los Santos NP [address] [place] [address] documented as of this encounter Visit Diagnoses Not on filedocumented in this encounter Additional Health Concerns Assessment Noted Time PHQ-9 Depression Total Score: 0 01/02/20 23 9:56 AM EDT documented as of this encounter Care Teams Clinical Dietetic Technician Relationship Specialty Start Date End Date Eulalia De Los Santos NP [address] [place] [address] PCP - General Family Medicine 12/31/23 documented as of this encounter
--- OUTSIDE RECORDS SUMMARY | 2025-02-20 08:29 | XMS_ITS | Encounter Summary ---
Author Organization [employer] Address [address] [facility] 7t [place] [address] Care Team Providers Care Combatant Diver Officer Name Role Phone Anahi Mccallum Primary Care Provider [phone] Eulalia De Los Santos NP Primary Care Provider [phone] Encounter Details Date Type Department Care Team (Late st Contact Info) Description 10/29/2022 Abstract [facility] MEDICINE [address] [place] [address] Anahi Mccallum FNP [address] [place] [address] Social History Tobacco Use Types Packs/Day Years [...] Description 04/24/2025 1:00 PM EST Procedure Visit [facility] MEDICINE [address] [place] [address] Eulalia De Los Santos NP [address] [place], [place] [phone] documented as of this encounter Procedures Procedure [...] on filedocumented in this encounter Care Teams Combatant Diver Officer Relationship Specialty Start Date End Date Anahi Mccallum FNP [address] [place] [address] PCP - General Family Medicine 02/20/22 12/30/23 Eulalia De Los Santos NP [address] [place] [address] PCP - General Family Medicine 12/31/23 documented as of this encounter
--- OUTSIDE RECORDS SUMMARY | 2025-02-20 08:29 | XMS_ITS | Encounter Summary ---
Author Organization [employer] Address [address] 7t [place] [address] Care Team Providers Care Stretcher Leveler Operator Helper Name Role Phone Eulalia De Los Santos NP Primary Care Provider [phone] Reason for Visit * Reason Comments Med Refill Encounter Details Date Type Department Care Team ([facility] st Contact Info) Description 09/15/2024 Refill [facility] MED[facility]INE [address] [place], [place] [phone] Eulalia De Los Santos NP [address] [place] [address] Hypothyroidism, unspecified type Social History Tobacco Use [...] 04/24/2025 1:00 PM EST Procedure Visit [facility] [address] [place] [address] Eulalia De Los Santos NP [address] [place] [address] documented as of this encounter Visit Diagnoses Diagnosis Hypothyroidism, unspecified type documented in this encounter Additional Health Concerns Assessment Noted Time PHQ-9 Depression Total Score: 0 01/02/20 23 9:56 AM EDT documented as of this encounter Care Teams Stretcher Leveler Operator Helper Relationship Specialty Start Date End Date Eulalia De Los Santos NP [address] [place] [address] PCP - General Family Medicine 12/31/23 documented as of this encounter
--- OUTSIDE RECORDS SUMMARY | 2025-02-20 08:29 | XMS_ITS | Encounter Summary ---
Author Organization [employer] Address [address] [facility] [address] 7[address] [place] [address] Care Team Providers Care Front Office Coordinator Name Role Phone Anahi MccallumP Primary Care Provider [phone] Eulalia De Los Santos NP Primary Care Provider [phone] Reason for Visit * Reason Onset Date Comments Referral 12/28/2023 Encounter Details Date Type Department Care Team ([facility] st Contact Info) Description 12/28/2023 Telephone [facility] MEDICINE [address] [place] [address] Anahi Mccallum FNP [address] [place], [place] [phone] Referral Social History Tobacco Use Types Packs/Day [...] looking for referral for [facility].Son informed that Kallei MCCORMACK is her PCP, and pt. Have not seen her since last December. Son states she is going to call [facility] will call back. * Telephone Encounter - Antonino Veloz - 12/28/2023 11:38 AM EDT Tc patients son calling states needs referral for [facility] in order to continue [facility]NA services play writer does not see any referrals on chart documented in this encounter Plan of Treatment Upcoming Encounters Date Type Department Care Team (Late st Contact Info) Description 04/24/2025 1:00 PM EST Procedure Visit [facility] MED[facility] [address] [place] [address] Eulalia De Los Santos NP [address] [place] [address] documented as of this encounter Visit Diagnoses Not on filedocumented in this encounter Additional Health Concerns Assessment Noted Time PHQ-9 Depression Total Score: 0 01/02/20 9:56 AM EDT documented as of this encounter Care Teams Front Office Coordinator Relationship Specialty Start Date End Date Anahi Mccallum FNP [address] [place] [address] PCP - General Family Medicine 02/20/22 12/30/23 Eulalia De Los Santos NP [address] [place] [address] PCP - General Family Medicine 12/31/23 documented as of this encounter
== END 2025-02-20 08:12 | disposition home or self-care (01) ==
LOC: HO.HHCL 08:11
PROVIDERS: PCP Nurse Practitioner Family; Visit Provider Nurse Practitioner Family
DX: Z13.89 Encounter for screening for other disorder (principal)

== ENCOUNTER 2025-02-21 08:11 | Outpatient (REF) | payer MEDICAID, SELFPAY ==
[2025-02-21 08:21] LABS: MANUAL DIFF FLAG NO
[2025-02-21 08:31] LABS: Hematocrit 40.2 % (37.0-47.0); Hemoglobin 13.0 g/dl (12.0-16.0); Imm Gran Abs Auto 0.02 X10*3/uL (0.00-0.03); Imm Gran Pct Auto 0.3 % (0.0-0.4); Lymphocytes Absolute Auto 3.1 X10*3/uL (1.2-4.9); Mean Corpuscular HGB Conc 32.3 g/dl (31.0-35.0); Mean Corpuscular Hemoglobin 24.5 pg (27.0-33.0); Mean Corpuscular Volume 75.7 fL (80.0-98.0); NRBC Abs Auto 0.000 X10*3/uL (0.0-0.012); NRBC Pct Auto 0.0 /100WBC (0.0-0.2); Platelet Count 313 X10*3/uL (160-400); Red Blood Count 5.31 X10*6/uL (4.20-5.50); White Blood Count 7.9 X10*3/uL (4.8-10.8)
[2025-02-21 09:24] LABS: Alanine Aminotransferase 27 U/L (0-31); Albumin Level 4.7 g/dL (3.5-5.0); Alkaline Phosphatase 103 U/L (39-117); Anion Gap 12 (12-20); Aspartate Amino Transferase 33 U/L (5-31); Blood Urea Nitrogen 17 mg/dL (9-16); Calcium 9.6 mg/dL (8.4-10.2); Carbon Dioxide 25 mmol/L (22-29); Chloride 109 mmol/L (96-108); Cholesterol 229 mg/dL (<200); Estimated Glomerular Filt Rate > 60; HDL Cholesterol 55 mg/dL (>40); Potassium 4.2 mmol/L (3.3-5.1); Sodium 142 mmol/L (135-145); Total Protein 7.3 g/dL (6.5-8.0); Triglycerides 77 mg/dL (<150)
[2025-02-21 09:41] LABS: Thyroid Stimulating Hormone 11.00 uIU/mL (0.32-4.0)
== END 2025-02-21 08:12 | disposition home or self-care (01) ==
LOC: HO.LAB 08:11
PROVIDERS: PCP Nurse Practitioner Family; Visit Provider Nurse Practitioner Family
DX: Z00.00 Encounter for general adult medical examination without abnormal findings (principal); F20.3 Undifferentiated schizophrenia; E03.9 Hypothyroidism, unspecified
CPT/HCPCS: 36415; 80053; 80061; 83036; 84443; 85025

== ENCOUNTER 2025-04-24 18:18 | Outpatient (REF) | payer MEDICAID, SELFPAY ==
--- OUTSIDE RECORDS SUMMARY | 2025-04-24 14:45 | XMS_ITS | Encounter Summary ---
Author Organization [employer] Address [address] [address] [address] [place] [address] Care Team Providers Care Bee Rancher Name Role Phone Eulalia De Los Santos NP Primary Care Provider [phone] Encounter Details Date Type Department Care Team (Latest Contact Info) Description 04/24/2025 2:45 PM EST Procedure Visit [facility] MEDICINE [address] [place], [place] [phone] Eulalia De Los Santos NP [address] [place], [place] [phone] Cervical cancer screening (Primary Dx); Hypothyroidism, unspecified type; Hyperlipidemia, unspecified hyperlipidemia type Social History Tobacco Use Types Packs/Day Years Used Date Smoking Tobacco: Former Cigarettes Passive Smoke Exposure: Past Smokeless Tobacco: Never Tobacco Cessation:Counseling Given: Not [...] Female 03/16/2022 10:14 AM EDT Sexual Orientation Straight 04/24/2025 1: 54 PM EST documented as of this encounter Last Filed Vital Signs Vital Sign Reading Time Taken Comments Blood Pressure 158/88 04/24/2025 2:44 PM EST Pulse 78 04/24/2025 2:44 PM EST Temperature 36.7 C (98 F) 04/24/2025 2:44 PM EST Respiratory Rate 18 04/24/2025 2:44 PM EST Oxygen Saturation 98% 04/24/2025 2:44 PM EST Inhaled Oxygen Concentration - - Weight 77.6 kg (171 lb 2 oz) 04/24/2025 2:44 PM EST Height 157.5 cm (5' 2 ) 04/24/2025 2:44 PM EST Body Mass Index 31.3 04/24/2025 2:44 PM EST documented in this encounter Miscellaneous Notes * Assessment & Plan Note - Eulalia De Los Santos NP - 04/24/2025 2:45 PM ESTAssociated Problem(s): Hypothyroidism Orders: levothyroxine (Synthroid, Levoxyl) 100 MCG tablet; TAKE 1 TABLET (100 MCG) BY MOUTH IN THE MORNING.NEEDS OFFICE VISIT FOR MEDS documented in this encounter Plan of Treatment Upcoming Encounters Date Type Department Care Team (Late st Contact Info) Description 06/11/2025 2:30 PM EST Office Visit [facility] MEDICINE [address] [place] [address] Eulalia De Los Santos NP [address] [place] [address] Scheduled Orders Name Type Priority Associated Diagnoses Orde r Schedule Pap Smear Pathology and Cytology Routine Cervical cancer screening Ordered: 04/24/2025 HPV High Risk with Reflex to Subtypes Lab Routine Cervical cancer screening Ordered: 04/24/2025 TSH W/Reflex to FT4 Lab Routine Hyperlipidemia, unspecified hyperlipidemia type Expected: 04/24/2025 (Approximate), Expires: 04/24/2026 documented as of this encounter Visit Diagnoses Diagnosis Cervical cancer screening- Primary Screening for malignant neoplasm of the cervix Hypothyroidism, unspecified type Hyperlipidemia, unspecified hyperlipidemia type documented in this encounter Additional Health Concerns Assessment Noted Time PHQ-9 Depression Total Score: 3 02/20/20 25 2:20 PM EDT documented as of this encounter Care Teams Bee Rancher Relationship Specialty Start Date End Date Eulalia De Los Santos NP [address] [place] [address] PCP - General Family Medicine 12/31/23 documented as of this encounter
--- OUTSIDE RECORDS SUMMARY | 2025-04-24 23:10 | XMS_ITS | Encounter Summary ---
Author Organization [employer] Address [address] [facility] 7t [place] [address] Care Team Providers Care Top Inventory Control Executive Name Role Phone Anahi Mccallum Primary Care Provider [phone] Eulalia De Los Santos NP Primary Care Provider [phone] Encounter Details Date Type Department Care Team (Late Contact Info) Description 01/05/2023 Orders Only [facility] [address] [place] [address] Anahi Mccallum FNP [address] [place] [address] Right ankle pain, unspecified chronicity (Primary Dx) [...] PM EST documented as of this encounter Plan of Treatment Upcoming Encounters Date Type Department Care Team (Late Contact Info) Description 06/11/2025 2:30 PM EST Office Visit [facility] [address] [place] [address] Eulalia De Los Santos NP [address] [place] [address] documented as of this encounter Procedures Procedure [...] (FISHMAN) (02/01/2023 9:14 PM EDT) IDNOW SERIAL# [id number] [facility] COVID-19 TEST Negative Negative [facility] COVID-19 NOTE See Note [facility] Comment: Results are for the identification of SARS-CoV2 RNA. TheSARS-CoV2 RNA is generally detectable in respiratory samplesduring the acute phase of infection. Positive results areindicative of the presence of SARS-CoV-2 RNA; clinicalcorrelation with patient history and other diagnosticinformation is necessary to determine patient infectionstatus. Positive results do not rule out bacterial infectionor co- infection with other viruses.Testing facilities within the [place] and [facility] are required [...] use by authorized laboratories.Testing performed on the [employer] NOW utilizing NAAT. 02/01/2023 9:14 PM EDT 02/01/2023 9:32 PM EDT [facility] Exter nal Provider LAB MOLECULAR DIAGNOSTICS ORDERABLES Final Result Performing Organization Address City/[facility] Co de Phone Number [facility] [address] [place] [phone] * Acetaminophen level (02/01/2023 4:27 PM EDT) [facility] Acet[facility] LAB <17 <30 mcg/mL [facility] 02/01/2023 4:27 PM EDT 02/01/2023 4:32 PM EDT Generic External Data Provider LAB BLOOD ORDERAB LES Final Result Performing Organization Address [facility] Co de Phone Number [facility] [address] [place] [address] [phone] * (ABNORMAL) Salicylate (02/01/2023 4:27 PM EDT) Salicylate <5.0(L) 15 - 30 mg/dL [facility] 02/01/2023 4:27 PM EDT 02/01/2023 4:32 PM EDT [facility] External Provider LAB BLO OD ORDERABLES Final Result Performing Organization Address [facility] Co de Phone Number [facility] [address] [place] [address] [phone] * Ethanol (02/01/2023 4:27 PM EDT) ETHANOL (MG/DL) IN SER/PLAS <10 mg/dL [facility] Comment:Serum/plasma ethanol results are to be used formedical/treatment purposes only. 02/01/2023 4:27 PM EDT 02/01/2023 4:32 PM EDT Generic External Data Provider LAB BLOOD ORDERAB LES Final Result Performing Organization Address [facility] de Phone Number [facility] [address] [place] [address] [phone] * (ABNORMAL) Comprehensive Metabolic Panel (02/01/2023 4:27 PM EDT) Sodium 139 135 - 145 mmol/L [facility] Potassium 3.5 3.3 - 5.1 mmol/L [facility] Chloride 105 96 - 108 mmol/L [facility] Carbon Dioxide 27 22 - 29 mmol/L [facility] Anion Gap 11(L) 12 - 20 [facility] Urea Nitrogen (BUN) 10 9 - 16 mg/dL [facility] Creatinine, Serum 0.78 0.5 - 1.4 mg/dL [facility] Creatinine Clr Calc Pharmacy 82.0 [facility] Comment:Provided height and weight: 165.1 cm,83.915 kg.eGFR (calculated from the MDRD study equation) and eCrCl(calculated from the Cockcroft-Gault equation) are based ondifferent parameters and may not yield comparable results.If eCrCl result is absurd, please check patient'sheight/weight. Estimated Glomerular Filt Rate >60 [facility] Comment:NOTE: For -Am erican individuals, multiply the result by 1.210.Chronic Kidney Disease: Estimated GFR < 60 mL/min/1.78u5Bpyypn Kidney Disease: Estimated GFR < 15 mL/min/1.73m2 Glucose 128(H) 60 - 115 mg/dL [facility] Calcium 9.9 8.4 - 10.2 mg/dL [facility] Bilirubin, Total 0.2 0.0 - 1.0 mg/dL [facility] Aspartate Amino Transferase 24 5 - 31 U/L [facility] Alanine Aminotransferase 24 0 - 31 U/L [facility] Total Protein 7.5 6.5 - 8.0 g/dL [facility] Albumin Level 4.6 3.5 - 5.0 g/dL [facility] Alkaline Phosphatase 97 39 - 117 U/L [facility] 02/01/2023 4:27 PM EDT 02/01/2023 4:32 PM EDT us [facility] External Provider LAB BLO OD ORDERABLES Final Result [facility] [address] [place] [phone] * (ABNORMAL) CBC auto differential (02/01/2023 4:27 PM EDT) White Blood Count 7.4 4.8 - 10.8 X10*3/uL [facility] Red Blood Count 5.83(H) 4.20 - 5.50 X10*6/uL [facility] Hemoglobin 14.0 12.0 - 16.0 g/dl [facility] Hematocrit 44.1 37.0 - 47.0 % [facility] Mean Corpuscular Volume 75.6(L) 80.0 - 98.0 fL [facility] Mean Corpuscular Hemoglobin 24.0(L) 27.0 - 33.0 pg [facility] Mean Corpuscular HGB Conc 31.7 31.0 - 35.0 g/dl [facility] Red Cell Distribution Width 15.0 11.0 - 16.0 % [facility] Platelet Count 320 160 - 400 X10*3/uL [facility] Mean Platelet Volume 9.8 9.4 - 12.3 fL [facility] Neutrophils Percent Auto 64.3 45 - 73 % [facility] Imm Gran Pct Auto 0.4 0.0 - 0.4 % [facility] Lymphocytes Percent Auto 28.4 20 - 40 % [facility] Monocytes Percent Auto 4.8 2 - 11 % [facility] Eosinophils Percent Auto 1.7 0 - 4 % [facility] Basophils Percent Auto 0.4 0 - 2 % [facility] NRBC Pct Auto 0.0 0.0 - 0.2 /100WBC [facility] Neutrophils Absolute Auto 4.8 2.0 - 8.3 x10*3/uL [facility] Imm Gran Abs Auto 0.03 0.00 - 0.03 X10*3/uL [facility] Lymphocytes Absolute Auto 2.1 1.2 - 4.9 X10*3/uL [facility] Monocytes Absolute Auto 0.4 0.1 - 1.2 X10*3/uL [facility] Eosinophils Absolute Auto 0.1 0.0 - 0.4 X10*3/uL [facility] Basophils Absolute Auto 0.0 0.0 - 0.2 X10*3/uL [facility] NRBC Abs Auto 0.000 0.0 - 0.012 X10*3/uL [facility] 02/01/2023 4:27 PM EDT 02/01/2023 4:32 PM EDT us [facility] External Provider LAB BLO OD ORDERABLES Final Result [facility] [address] [place] [phone] * Drug Monitoring, Panel 1, Screen, Urine (02/01/2023 4:03 PM EDT) Opiate Screen Urine Not Detected Not Detect [facility] Comment:Opiate cut-off is 30 0 ng/mL.Positive results are unconfirmed and should not be used fornon-medical purposes. Barbiturates, Urine Not Detected Not Detect [facility] Comment:Barbiturate cut-off is 200 ng/mL.Positive results are unconfirmed and should not be used fornon-medical purposes. Phencyclidine Screen Urine Not Detected Not Detect [facility] Comment:Phencyclidine cut-of f is 25 ng/mL.Positive results are unconfirmed and should not be used fornon-medical purposes. Amphetamine Screen Urine Not Detected Not Detect [facility] Comment:Amphetamine cut-off is 1000 ng/mL.Positive results are unconfirmed and should not be used fornon-medical purposes. Benzodiazepines Screen Urine Not Detected Not Detect [facility] Comment:Benzodiazepine cut-o ff is 200 ng/mL.Positive results are unconfirmed and should not be used fornon-medical purposes. Cocaine Screen Urine Not Detected Not Detect [facility] Comment:Cocaine cut-off is 3 00 ng/mL.Positive results are unconfirmed and should not be used fornon-medical purposes. Cannabinoid Screen Urine Not Detected Not Detect [facility] Comment:Cannabinoid cut-off is 50 ng/mL.Positive results are unconfirmed and should not be used fornon-medical purposes. FENTANYL URINE Not Detected Not Detect [facility] Comment:Fentanyl cut-off is 1 ng/mL.Positive results are unconfirmed and should not be used fornon-medical purposes. 02/01/2023 4:03 PM EDT 02/01/2023 4:15 PM EDT us [facility] External Provider LAB URI NE ORDERABLES Final Result [facility] [address] [place] [address] [phone] * (ABNORMAL) Urinalysis, Complete, with Reflex to Culture (02/01/2023 4:03 PM EDT) Color Urine Yellow [facility] Appearance Urine Clear [facility] PH 5.5 5.0 - 9.0 [facility] Glucose Urine UA Negative Negative mg/dL [facility] Urine Blood Negative Negative [facility] Specific [place] - Urine 1.010 1.005 - 1.025 [facility] Urine Protein Negative Neg-Trace mg/dL [facility] Urine Ketones Negative Negative mg/dL [facility] Nitrite Urine Negative Negative [facility] Leukocyte Esterase Urine Trace(A) Negative [facility] RBC Urine 0-2 0 - 2 /HPF [facility] Urine WBC 0-5 0 - 5 /HPF [facility] Urine Squamous Epithelial Cell 0-2 0 - 2 /HPF [facility] Urine Bacteria None Seen None Seen [facility] Hyaline Casts, Urine 0-2 0 - 2 /LPF [facility] 02/01/2023 4:03 PM EDT 02/01/2023 4:15 PM EDT Narrative [facility] - 02/01/2023 4:38 PM EDT [id number], Clean Catch us [facility] External Provider LAB URI NE ORDERABLES Final Result [facility] [address] [place] [address] [phone] documented in this encounter Visit Diagnoses Diagnosis Right ankle pain, unspecified chronicity- Primary documented in this encounter Additional Health Concerns Assessment Noted Time PHQ-9 Depression Total Score: 0 01/02/20 23 9:56 AM EDT documented as of this encounter Care Teams Top Inventory Control Executive Relationship Specialty Start Date End Date Anahi Mccallum FNP [address] [place] [address] PCP - General Family Medicine 02/20/22 12/30/23 Eulalia De Los Santos NP [address] [place] [address] PCP - General Family Medicine 12/31/23 documented as of this encounter
--- OUTSIDE RECORDS SUMMARY | 2025-04-24 23:11 | XMS_ITS | Encounter Summary ---
Author Organization [employer] Address [address] [facility] [address] [address] [place] [address] Care Team Providers Care Industrial Education Teacher Name Role Phone Eulalia De Los Santos NP Primary Care Provider [phone] Reason for Visit * Reason Onset Date Comments appointment time change 04/23/2025 Encounter Details Date Type Department Care Team ([facility] st Contact Info) Description 04/23/2025 Telephone [facility] [address] [place] [address] Eulalia De Los Santos NP [address] [place] [address] appointment time change Social History Tobacco Use Types Packs/Day Years [...] PM EST documented as of this encounter Miscellaneous Notes * Telephone Encounter - Yuli De La Rosa [place] - 04/23/2025 1:05 PM EST Lvm -Manan called [phone] phone number was out of service ma called other number on file.Pt has an upcoming appointment on 04/24 @ appointment will be change to 215 documented in this encounter Plan of Treatment Upcoming Encounters Date Type Department Care Team (Late st Contact Info) Description 06/11/2025 2:30 PM EST Office Visit [facility] [address] [place] [address] Eulalia De Los Santos NP [address] [place] [address] documented as of this encounter Visit Diagnoses Not on filedocumented in this encounter Additional Health Concerns Assessment Noted Time PHQ-9 Depression Total Score: 3 02/20/20 25 2:20 PM EDT documented as of this encounter Care Teams Industrial Education Teacher Relationship Specialty Start Date End Date Eulalia De Los Santos NP [address] [place] [address] PCP - General Family Medicine 12/31/23 documented as of this encounter
--- OUTSIDE RECORDS SUMMARY | 2025-04-24 23:11 | XMS_ITS | Encounter Summary ---
Author Organization [employer] Address [address] [facility] 7t [place] [address] Care Team Providers Care Vocational Case Manager Name Role Phone Anahi Mccallum Primary Care Provider [phone] Eulalia De Los Santos NP Primary Care Provider [phone] Encounter Details Date Type Department Care Team (Late st Contact Info) Description 10/29/2022 Abstract [facility] [address] [place] [address] Anahi Mccallum FNP [address] [place] [address] Social History Tobacco Use Types Packs/Day Years [...] Description 06/11/2025 2:30 PM EST Office Visit [facility] [address] [place] [address] Eulalia De Los Santos NP [address] [place], [place] [phone] documented as of this encounter Procedures Procedure [...] on filedocumented in this encounter Care Teams Vocational Case Manager Relationship Specialty Start Date End Date Anahi Mccallum FNP [address] [place] [address] PCP - General Family Medicine 02/20/22 12/30/23 Eulalia De Los Santos NP [address] [place] [address] PCP - General Family Medicine 12/31/23 documented as of this encounter
--- OUTSIDE RECORDS SUMMARY | 2025-04-24 23:11 | XMS_ITS | Encounter Summary ---
Author Organization [employer] Address [address] [facility] [address] [place] [address] Care Team Providers Care Bill Hiker Name Role Phone Eulalia De Los Santos NP Primary Care Provider Reason for Visit * Reason Comments Med Refill Encounter Details Date Type Department Care Team ([facility] st Contact Info) Description 04/20/2024 Refill [facility] [address] [place] [address] Anahi Mccallum FNP [address] [place] [address] Hypothyroidism, unspecified type Social History Tobacco Use [...] the past 12 months, has t he [employer] gas, oil or water company threatened to [...] Description 06/11/2025 2:30 PM EST Office Visit [facility] [address] [place] [address] Eulalia De Los Santos NP [address] [place] [address] documented as of this encounter Visit Diagnoses Diagnosis Hypothyroidism, unspecified type documented in this encounter Additional Health Concerns Assessment Noted Time PHQ-9 Depression Total Score: 0 01/02/20 23 9:56 AM EDT documented as of this encounter Care Teams Bill Hiker Relationship Specialty Start Date End Date Eulalia De Los Santos NP [address] [place] [address] PCP - General Family Medicine 12/31/23 documented as of this encounter
--- OUTSIDE RECORDS SUMMARY | 2025-04-24 23:11 | XMS_ITS | Encounter Summary ---
Author Organization [employer] Address [address] [facility] [address] [place] [address] Care Team Providers Care Checkroom Attendant Name Role Phone Anahi Mccallum Primary Care Provider [phone] Eulalia De Los Santos NP Primary Care Provider [phone] Encounter Details Date Type Department Care Team (Latest Contact Info) Description 07/06/2018 Abstract [facility] CON[facility]S Dental, Provider, DDS Social History [...] Description 06/11/2025 2:30 PM EST Office Visit [facility] [address] [place] [address] Eulalia De Los Santos NP [address] [place] [address] documented as of this encounter Visit Diagnoses Not on filedocumented in this encounter Care Teams Checkroom Attendant Relationship Specialty Start Date End Date Anahi Mccallum FNP [address] [place] [address] PCP - General Family Medicine 02/20/22 12/30/23 Eulalia De Los Santos NP [address] [place] [address] PCP - General Family Medicine 12/31/23 documented as of this encounter
--- OUTSIDE RECORDS SUMMARY | 2025-04-24 23:11 | XMS_ITS | Encounter Summary ---
Author Organization [employer] Address [address] [facility] [address] [facility] [address] [place] [address] Care Team Providers Care Health Care Coordinator Name Role Phone Eulalia De Los Santos NP Primary Care Provider [phone] Reason for Visit * Reason Comments Med Refill Encounter Details Date Type Department Care Team ([facility] Contact Info) Description 03/13/2025 Refill [facility] [address] [place], [place] [phone] Eulalia De Los Santos, ARIE [address] [place] [address] Social History Tobacco Use Types Packs/Day Years [...] Description 06/11/2025 2:30 PM EST Office Visit [facility] [address] [place] [address] Eulalia De Los Santos NP [address] [place] [address] documented as of this encounter Visit Diagnoses Not on filedocumented in this encounter Additional Health Concerns Assessment Noted Time PHQ-9 Depression Total Score: 3 02/20/20 25 2:20 PM EDT documented as of this encounter Care Teams Health Care Coordinator Relationship Specialty Start Date End Date Eulalia De Los Santos NP [address] [place] [address] PCP - General Family Medicine 12/31/23 documented as of this encounter
--- OUTSIDE RECORDS SUMMARY | 2025-04-24 23:11 | XMS_ITS | Encounter Summary ---
Author Organization [employer] Address [address] [address] [place] [address] Care Team Providers Care Leather Belt Loop Cutter Name Role Phone Eulalia De Los Santos NP Primary Care Provider [phone] Reason for Visit * Reason Comments Med Refill Encounter Details Date Type Department Care Team ([facility] st Contact Info) Description 04/10/2024 Refill [facility] [address] [place] [address] Anahi Mccallum FNP [address] [place] [address] Social History Tobacco Use Types Packs/Day Years [...] Description 06/11/2025 2:30 PM EST Office Visit [facility] [address] [place] [address] Eulalia De Los Santos NP [address] [place] [address] documented as of this encounter Visit Diagnoses Not on filedocumented in this encounter Additional Health Concerns Assessment Noted Time PHQ-9 Depression Total Score: 0 01/02/20 23 9:56 AM EDT documented as of this encounter Care Teams Leather Belt Loop Cutter Relationship Specialty Start Date End Date Eulalia De Los Santos NP [address] [place] [address] PCP - General Family Medicine 12/31/23 documented as of this encounter
--- OUTSIDE RECORDS SUMMARY | 2025-04-24 23:11 | XMS_ITS | Encounter Summary ---
Author Organization [employer] Address [address] [facility] [address] [place] [address] Care Team Providers Care Gold Charmer Name Role Phone nAahi MccallumP Primary Care Provider [phone] Eulalia De Los Santos NP Primary Care Provider [phone] Reason for Visit * Reason Onset Date Comments Referral 12/28/2023 Encounter Details Date Type Department Care Team (Late st Contact Info) Description 12/28/2023 Telephone [facility] [address] [place] [address] Anahi Mccallum FNP [address] [place] [address] Referral Social History Tobacco Use Types Packs/Day [...] Givers in order to continue 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 does not see any referrals on chart documented in this encounter Plan of Treatment Upcoming Encounters Date Type Department Care Team (Late st Contact Info) Description 06/11/2025 2:30 PM EST Office Visit [facility] [address] [place] [address] Eulalia De Los Santos NP [address] [place] [address] documented as of this encounter Visit Diagnoses Not on filedocumented in this encounter Additional Health Concerns Assessment Noted Time PHQ-9 Depression Total Score: 0 01/02/20 9:56 AM EDT documented as of this encounter Care Teams Gold Charmer Relationship Specialty Start Date End Date Anahi Mccallum FNP [address] [place] [address] PCP - General Family Medicine 02/20/22 12/30/23 Eulalia De Los Santos NP [address] [place] [address] PCP - General Family Medicine 12/31/23 documented as of this encounter
--- OUTSIDE RECORDS SUMMARY | 2025-04-24 23:11 | XMS_ITS | Encounter Summary ---
Author Organization [employer] Address [address] [facility] [address] [place] [address] Care Team Providers Care Loan Clerk Name Role Phone Eulalia De Los Santos NP Primary Care Provider [phone] Encounter Details Date Type Department Care Team (Latest Contact Info) Description 04/24/2025 Travel Social History Tobacco Use Types Packs/Day Years Used Date Smoking Tobacco: Former Cigarettes Passive Smoke Exposure: Past Smokeless Tobacco: Never Depression Answer Date Recorded [...] Description 06/11/2025 2:30 PM EST Office Visit [facility] [address] [place] [address] Eulalia De Los Santos NP [address] [place] [address] documented as of this encounter Visit Diagnoses Not on filedocumented in this encounter Additional Health Concerns Assessment Noted Time PHQ-9 Depression Total Score: 3 02/20/20 25 2:20 PM EDT documented as of this encounter Care Teams Loan Clerk Relationship Specialty Start Date End Date Eulalia De Los Santos NP [address] [place] [address] PCP - General Family Medicine 12/31/23 documented as of this encounter
--- OUTSIDE RECORDS SUMMARY | 2025-04-24 23:11 | XMS_ITS | Encounter Summary ---
Author Organization [employer] Address [address] [place] [address] Care Team Providers Care County Director Name Role Phone Eulalia De Los Santos NP Primary Care Provider [phone] Reason for Visit * Reason Comments Med Refill Encounter Details Date Type Department Care Team ([facility] st Contact Info) Description 09/15/2024 Refill [facility] [address] [place], [place] [phone] Eulalia De Los Santos NP [address] [place], [place] [phone] Hypothyroidism, unspecified type Social History Tobacco Use [...] Description 06/11/2025 2:30 PM EST Office Visit [facility] [address] [place] [phone] Eulalia De Los Santos NP [address] [place] [address] documented as of this encounter Visit Diagnoses Diagnosis Hypothyroidism, unspecified type documented in this encounter Additional Health Concerns Assessment Noted Time PHQ-9 Depression Total Score: 0 01/02/20 23 9:56 AM EDT documented as of this encounter Care Teams County Director Relationship Specialty Start Date End Date Eulalia De Los Santos NP [address] [place] [phone] PCP - General Family Medicine 12/31/23 documented as of this encounter
--- OUTSIDE RECORDS SUMMARY | 2025-04-24 23:11 | XMS_ITS | Encounter Summary ---
Author Organization [employer] Address [address] 7[address] [place] [address] Care Team Providers Care Damage Prevention Coordinator Name Role Phone Eulalia De Los Santos NP Primary Care Provider [phone] Reason for Visit * Reason Onset Date Comments Med Refill 10/10/2024 Encounter Details Date Type Department Care Team ([facility] st Contact Info) Description 10/10/2024 Telephone [facility] [address] [place] [address] Eulalia De Los Santos NP [address] [place], [place] [phone] Med Refill Social History Tobacco Use Types [...] 11:01 AM EDT Medications were sent to [facility] on 08/17/24 90 day supply. * Telephone Encounter - Ellen Buenrostro - 10/10/2024 10:54 AM EDT TC from pt son requesting medication refill. Medications needing refill : levothyroxine (Synthroid, Levoxyl) 100 MCG tablet pravastatin (Pravachol) 80 MG tablet To be sent to: [facility] - [place], [place] - [address] documented in this encounter Plan of Treatment Upcoming Encounters Date Type Department Care Team (Late st Contact Info) Description 06/11/2025 2:30 PM EST Office Visit [facility] [address] [place] [address] Eulalia De Los Santos NP [address] [place] [address] documented as of this encounter Visit Diagnoses Not on filedocumented in this encounter Additional Health Concerns Assessment Noted Time PHQ-9 Depression Total Score: 0 01/02/20 9:56 AM EDT documented as of this encounter Care Teams Damage Prevention Coordinator Relationship Specialty Start Date End Date Eulalia De Los Santos NP [address] [place] [address] PCP - General Family Medicine 12/31/23 documented as of this encounter
--- OUTSIDE RECORDS SUMMARY | 2025-04-24 23:11 | XMS_ITS | Clinical Summary ---
Author Organization [employer] Address [address] 7[address] [place] [address] Care Team Providers Care Deputy Fire Chief Name Role Phone Eulalia De Los Santos NP Primary Care Provider [phone] Allergies Active Allergy Reactions Criticality Noted Date [...] every 12 (twelve) hours. 07/03/19 15 Active levothyroxine (Synthroid, Levoxyl) 100 MCG tabletIndicatio ns:Hypothyroidi sm, unspecified type TAKE 1 TABLET (100 MCG) BY MOUTH IN THE MORNING. NEEDS OFFICE VISIT FOR MEDS 30 tablet 04/24/20 25 Active omeprazole (PriLOSEC) [address] capsule TAKE 1 CAPSULE (20 MG) BY MOUTH BEFORE BREAKFAST. 30 capsule 2 04/24/20 25 Active pravastatin (Pravachol) 80 MG tablet Take 1 tablet (80 mg) by mouth at bedtime. 90 tablet 04/24/20 25 Active Multiple Vitamin (Tab-A-Olvin) tablet TAKE 1 TABLET BY MOUTH ONCE PER DAY WITH FOOD. NEEDS OFFICE VISIT 30 tablet 04/24/20 25 Active omeprazole (PriLOSEC) [address] capsule TAKE 1 CAPSULE (20 MG) BY MOUTH BEFORE BREAKFAST. 30 capsule 2 5 10:58 AM EST 02/20/20 025 Discontinued(Re order (will not trigger notification to Pharmacy)) pravastatin (Pravachol) 80 MG tablet Take 1 tablet (80 mg) by mouth at bedtime. 90 tablet 02/20/20 25 025 Discontinued(Re order (will not trigger notification to Pharmacy)) levothyroxine (Synthroid, Levoxyl) 100 MCG tabletIndicatio ns:Hypothyroidi sm, unspecified type TAKE 1 TABLET (100 MCG) BY MOUTH IN THE MORNING. NEEDS OFFICE VISIT FOR MEDS 30 tablet 02/20/20 025 Discontinued(Re order (will not trigger notification to Pharmacy)) Multiple Vitamin (Tab-A-Olvin) tablet TAKE 1 TABLET BY MOUTH ONCE PER DAY WITH FOOD. NEEDS OFFICE VISIT 30 tablet 02/20/20 025 Discontinued(Re order (will not trigger notification to Pharmacy)) Active Problems Problem Noted Date Diagnosed Date Gastroesophageal reflux disease with esophagitis 02/19/2025 Assessment & Plan (03/20/2025 2:09 PM EST): Hypercholesterolemia 03/11/2015 Hypothyroidism 03/11/2015 Assessment & Plan (04/24/2025 3:23 PM EST): Orders: levothyroxine (Synthroid, Levoxyl) 100 MCG tablet; TAKE 1 TABLET (100 MCG) BY MOUTH IN THE MORNING. NEEDS OFFICE VISIT FOR MEDS Assessment & Plan (03/20/2025 2:09 PM EST): Orders: TSH; Future levothyroxine (Synthroid, Levoxyl) 100 MCG tablet; TAKE 1 TABLET (100 MCG) BY MOUTH IN THE MORNING. NEEDS OFFICE VISIT FOR MEDS Obesity 03/11/2015 Schizophrenia 03/11/2015 Assessment & Plan (03/20/2025 2:09 PM EST): Orders: Lipid Panel, Standard; Future Comprehensive Metabolic Panel; Future Hemoglobin A1c; Future Encounters Date Type Department Care Team Description 04/24/2025 2:45 PM EST Procedure Visit [address] [phone] Eulalia De Los Santos NP Cervical cancer screening (Primary Dx); Hypothyroidism, unspecified type; Hyperlipidemia, unspecified hyperlipidemia type 04/24/2025 Travel 04/23/2025 Telephone [facility] [address] [place] [address] Abbi Selby [place] 04/23/2025 Telephone [facility] [address] [place] [address] Eulalia De Los Santos NP appointment time change 03/13/2025 Refill [facility] [address] [place] [address] Eulalia De Los Santos NP 02/26/2025 Results Follow-Up [facility] [address] [place] [address] Corrina Qiu RN Lipid Panel, Standard, Comprehensive Metabolic Panel, Hemoglobin A1c, Additional followed-up results: 2 02/19/2025 2:00 PM EDT Office Visit [facility] [address] [place] [address] Eulalia De Los Santos NP Hypothyroidism, unspecified type (Primary Dx); Undifferentiated schizophrenia (CMS/HCC) (HCC); Gastroesophageal reflux disease with esophagitis, unspecified whether hemorrhage; Malignant neoplasm of female breast, unspecified estrogen receptor status, unspecified laterality, unspecified site of breast (HCC); Healthcare maintenance; Encounter for vaccination; Encounter for immunization 02/19/2025 Travel 02/16/2025 Telephone [facility] [address] [place] [address] Javid Alcazar CO chart prep 02/12/2025 Patient Outreach [facility] [address] [place], [place] [phone] Eulalia De Los Santos NP Pre-visit Planning ([facility] unable to reach [facility] ) from Last 3 Months Immunizations Immunization Administration [...] your housing situation today? I have braxton nicolasa 02/19/[address] you li [...] Orientation Straight 04/24/2025 1: 54 PM EST Last Filed Vital Signs Vital Sign Reading [...] Mass Index 31.3 04/24/2025 2:44 PM EST Plan of Treatment Upcoming Encounters Date Type Department Care Team (Late st Contact Info) Description 06/11/2025 2:30 PM EST Office Visit [facility] [address] [place], [place] [phone] Eulalia De Los Santos NP [address] [place], [place] [phone] Health Maintenance Due Date Last Done Comments [...] Screening 02/19/2026 02/19/2025 SDOH Screening 02/19/2026 02/19/2025 Diabetes: Hemoglobin A1C 02/21/2026 025, 09/24/2021, 07/30/2020, Additional history exists Tobacco Screening 04/24/2026 04/24/2025 Colonoscopy 07/02/2026 07/02/2016 Colorectal Cancer Screening 07/02/2026 Lipid Panel 02/21/2030 02/21/2025, 12/15, 09/24/2021, Additional history exists DTaP/Tdap/Td Vaccines (3 - Td or Tdap) [...] Procedure Name Priority Date/Time Associated Diagnosis Comments CBC WITH AUTO DIFFERENTIAL Routine 02/21/2025 8:21 AM EDT Healthcare maintenance TSH STAT 02/21/2025 8:21 AM EDT Hypothyroidism, unspecified type HEMOGLOBIN A1C Routine 02/21/2025 8:21 AM EDT Undifferentiated schizophrenia (CMS/HCC) (HCC) COMPREHENSIVE METABOLIC PANEL Routine 02/21/2025 8:21 AM EDT Undifferentiated schizophrenia (CMS/HCC) (HCC) LIPID PANEL, STANDARD Routine 02/21/2025 8:21 AM EDT Undifferentiated schizophrenia (CMS/HCC) (HCC) ZZZ HISTORICAL HPV MRNA E6/E7 Routine 10/11/2018 12:00 AM EDT HM PAP/HPV Routine 10/11/2018 HM COLONOSCOPY Routine 07/02/2016 9:20 AM EST from Last 3 Months or Most Recently Relevant to Health Maintenance Results * (ABNORMAL) CBC auto differential (02/21/2025 8:21 AM EDT) White Blood Count 7.9 4.8 - 10.8 X10*3/uL [facility] Red Blood Count 5.31 4.20 - 5.50 X10*6/uL [facility] Hemoglobin 13.0 12.0 - 16.0 g/dl [facility] Hematocrit 40.2 37.0 - 47.0 % [facility] Mean Corpuscular Volume 75.7(L) 80.0 - 98.0 fL [facility] Mean Corpuscular Hemoglobin 24.5(L) 27.0 - 33.0 pg [facility] Mean Corpuscular HGB Conc 32.3 31.0 - 35.0 g/dl [facility] Red Cell Distribution Width 14.6 11.0 - 16.0 % [facility] Platelet Count 313 160 - 400 X10*3/uL [facility] Mean Platelet Volume 9.7 9.4 - 12.3 fL [facility] Neutrophils Percent Auto 50.2 45 - 73 % [facility] Imm Gran Pct Auto 0.3 0.0 - 0.4 % [facility] Lymphocytes Percent Auto 39.0 20 - 40 % [facility] Monocytes Percent Auto 7.4 2 - 11 % [facility] Eosinophils Percent Auto 2.7 0 - 4 % [facility] Basophils Percent Auto 0.4 0 - 2 % [facility] NRBC Pct Auto 0.0 0.0 - 0.2 /100WBC [facility] Neutrophils Absolute Auto 4.0 2.0 - 8.3 x10*3/uL [facility] Imm Gran Abs Auto 0.02 0.00 - 0.03 X10*3/uL [facility] Lymphocytes Absolute Auto 3.1 1.2 - 4.9 X10*3/uL [facility] Monocytes Absolute Auto 0.6 0.1 - 1.2 X10*3/uL [facility] Eosinophils Absolute Auto 0.2 0.0 - 0.4 X10*3/uL [facility] Basophils Absolute Auto 0.0 0.0 - 0.2 X10*3/uL [facility] NRBC Abs Auto 0.000 0.0 - 0.012 X10*3/uL [facility] Blood Venous blood specimen / Unknown 02/21/2025 8:21 AM EDT 02/21/2025 8:21 AM EDT Eulalia De Los Santos SOIL SCIENTIST LAB BLOOD ORDERABLES Final Resul t Performing Organization Address [facility] de Phone Number [facility] [address] [place] [phone] * (ABNORMAL) TSH (02/21/2025 8:21 AM EDT) Thyroid Stimulating Hormone 11.00(H) 0.32 - 4.0 uIU/mL [facility] Comment:Note: A sustained TS H level above 2.5 uIU/mL may warrant further investigation. TSH 3rd Generation ([facility]) Blood Venous blood specimen / Unknown 02/21/2025 8:21 AM EDT 02/21/2025 8:21 AM EDT Eulalia De Los Santos SOIL SCIENTIST LAB BLOOD ORDERABLES Final Resul t Performing Organization Address City/[facility]/ZIP Co de Phone Number [facility] [address] [place] [phone] * Hemoglobin A1c (02/21/2025 8:21 AM EDT) Hemoglobin A1c 5.8 <6.0 % [facility] Comment:Hemoglobin A1C Refer ence Range Adults: 4.8 - 6.0 % Non diabetic: < 6.0 % Goal: < 7.0 %Additional Action Suggested: > 8.0 %Note: Hemoglobin A1c results are invalid for patients with abnormal amounts of HbF. Blood transfusions may impact the HbA1c concentration in the patient sample. Estimated Average Glucose 120 mg/dL [facility] Comment:eAG = Estimated ave rage glucose which is %A1C expressed asaverage glucose, using the formula of the C9G-[id number] Glucose study (ADAG), Diabetes Care, Vol.31,#8,Dec. 2007 Blood Venous blood specimen / Unknown 02/21/2025 8:21 AM EDT 02/21/2025 8:21 AM EDT us Eulalia De Los Santos SOIL SCIENTIST LAB BLOOD ORDERABLES Final Resul t [facility] [address] [place] [phone] * (ABNORMAL) Lipid Panel, Standard (02/21/2025 8:21 AM EDT) Triglycerides 77 <150 mg/dL [facility] Comment:Desirable Triglyceri de: less than 150 mg/dLBorderline High Triglyceride 150-199 mg/dLHigh Triglyceride: 200-499 mg/dLVery High Triglyceride: greater than or equal to 5OO mg/dL Cholesterol 229(H) <200 mg/dL [facility] Comment:Desirable Cholestero l: less than 200 mg/dLBorderline High Cholesterol: 200-239 mg/dLHigh Cholesterol: greater than 239 mg/dL LDL Cholesterol Calculated 159(H) <100 mg/dL [facility] Comment:Desirable LDL: less than 100 mg/dLNear Optimal/Above Optimal LDL: 110- 129 mg/dLBorderline High LDL: 130-159 mg/dLHigh LDL: 160-189 mg/dLVery High LDL: greater than or equal to 190 mg/dL HDL Cholesterol 55 >40 mg/dL [facility] Comment:Desirable HDL: great er than 40 mg/dL Note: This HDL assay may give artificially low results in patients with liver disease. Blood Venous blood specimen / Unknown 02/21/2025 8:21 AM EDT 02/21/2025 8:21 AM EDT us Eulalia De Los Santos SOIL SCIENTIST LAB BLOOD ORDERABLES Final Resul t [facility] [address] [place] [phone] * (ABNORMAL) Comprehensive Metabolic Panel (02/21/2025 8:21 AM EDT) Sodium 142 135 - 145 mmol/L [facility] Potassium 4.2 3.3 - 5.1 mmol/L [facility] Chloride 109(H) 96 - 108 mmol/L [facility] Carbon Dioxide 25 22 - 29 mmol/L [facility] Anion Gap 12 12 - 20 [facility] Urea Nitrogen (BUN) 17(H) 9 - 16 mg/dL [facility] Creatinine, Serum 0.74 0.5 - 1.4 mg/dL [facility] Estimated Glomerular Filt Rate >60 [facility] Comment:Chronic Kidney Disea se: Estimated GFR < 60 mL/min/1.08v5Reamkk Kidney Disease: Estimated GFR < 15 mL/min/1.73m2 Glucose 99 60 - 115 mg/dL [facility] Calcium 9.6 8.4 - 10.2 mg/dL [facility] Bilirubin, Total 0.3 0.0 - 1.0 mg/dL [facility] Aspartate Amino Transferase 33(H) 5 - 31 U/L [facility] Alanine Aminotransferase 27 0 - 31 U/L [facility] Total Protein 7.3 6.5 - 8.0 g/dL [facility] Albumin Level 4.7 3.5 - 5.0 g/dL [facility] Alkaline Phosphatase 103 39 - 117 U/L [facility] Blood Venous blood specimen / Unknown 02/21/2025 8:21 AM EDT 02/21/2025 8:21 AM EDT us Eulalia De Los Santos NP LAB BLOOD ORDERABLES Final Resul t [facility] [address] [place] [phone] * HPV mRNA E6/E7 (10/11/2018 12:00 AM EDT) HPV mRNA E6/E7 Not Detected NOT DETECTED [facility] Comment: This test was performed using the APTIMA(R) HPV Assay ([employer] This assay detects E6/E7 viral messenger RNA (mRNA) from 14 high-risk HPV types (16,18,31,33,35,39,45,51, 52,56,58,59,66,68). For additional information please refer to: http://education.Aircuity/faq/HZS420g7 (This link is being provided for informational/ educational purposes only.) The analytical performance characteristics of this assay have been determined by [employer] [place], [place]. The modifications have not been cleared or approved by the FDA. This assay has been validated pursuant to the CLIA regulations and is used for clinical purposes. Test Performed by [employer] [facility], [employer] [facility], [address] [place] [address] Ector Lawrence M.D., Ph.D., Director of Laboratories , CLIA [id number] Please note: Effective 01/27/2016, HPV testing will be performed using [employer]'s APTIMA test which targets mRNA. Detecting mRNA instead of DNA, as in older methods, offers significant improvements in specificity. 10/11/2018 us Linda Renae NP HISTORICAL/NON ORDERABLE LABS Fi nal Result [facility] Any[facility] [address] * Hm Pap Smear (10/11/2018) Pap Negative for intraephithelial lesion or malignancy Negative for intraephithelial lesion or malignancy, Other HPV Undetected 10/11/2018 Historical Provider HEALTH MAINTENANCE Final Result * Hm Colonoscopy (07/02/2016 9:20 AM EST) Colonoscopy Normal Normal Narrative An Francis - 07/02/2016 9:20 AM EST Recommended 10 year follow up us Historical Provider HEALTH MAINTENANCE Edited Result - Final from Last 3 Months or Most Recently Relevant to Health Maintenance Insurance [facility] C3 Care Teams Deputy Fire Chief Relationship Specialty Start Date End Date Eulalia De Los Santos NP [address] [place] [address] PCP - General Family Medicine 12/31/23
--- OUTSIDE RECORDS SUMMARY | 2025-04-24 23:11 | XMS_ITS | Encounter Summary ---
Author Organization [employer] Address [address] [place] [address] Care Team Providers Care Navigation Officer Name Role Phone Eulalia De Los Santos NP Primary Care Provider [phone] Encounter Details Date Type Department Care Team (Late st Contact Info) Description 04/23/2025 Telephone [facility] [address] [place] [address] Abbi Selby [place] Social History Tobacco Use Types Packs/Day Years [...] encounter Miscellaneous Notes * Telephone Encounter - Abbi Selby MA - 04/23/2025 3:43 PM EST Chart Prep Labs: done Images: ordered Referrals: internal Vaccines due: PCV20 Screenings: not applicable Overdue care gaps: Not applicable documented in this encounter Plan of Treatment Upcoming Encounters Date Type Department Care Team (Late st Contact Info) Description 06/11/2025 2:30 PM EST Office Visit [facility] [address] [place] [address] Eulalia De Los Santos NP [address] [place] [address] documented as of this encounter Visit Diagnoses Not on filedocumented in this encounter Additional Health Concerns Assessment Noted Time PHQ-9 Depression Total Score: 3 02/20/20 25 2:20 PM EDT documented as of this encounter Care Teams Navigation Officer Relationship Specialty Start Date End Date Eulalia De Los Santos NP [address] [place] [address] PCP - General Family Medicine 12/31/23 documented as of this encounter
== END 2025-04-24 18:19 | disposition home or self-care (01) ==
LOC: HO.HHCLNP 18:18
PROVIDERS: Visit Provider Nurse Practitioner Family
DX: Z11.51 Encounter for screening for human papillomavirus (HPV) (principal); Z12.4 Encounter for screening for malignant neoplasm of cervix
CPT/HCPCS: 87626; 88175

== ENCOUNTER 2025-05-01 08:35 | Outpatient (REF) | payer MEDICAID, SELFPAY ==
--- OUTSIDE RECORDS SUMMARY | 2025-05-01 09:13 | XMS_ITS | Encounter Summary ---
Author Organization [employer] Address [address] [place] [address] Care Team Providers Care Skein Tier Name Role Phone Eulalia De Los Santos NP Primary Care Provider [phone] Reason for Visit * Reason Comments Med Refill Encounter Details Date Type Department Care Team ([facility] Contact Info) Description 03/13/2025 Refill [facility] [address] [place], [place] [phone] Eulalia De Los Santos, ARIE [address] [place] [address] Social History Tobacco Use Types Packs/Day Years [...] Description 06/11/2025 2:30 PM EST Office Visit [facility] [address] [place] [address] Eulalia De Los Santos NP [address] [place] [address] documented as of this encounter Visit Diagnoses Not on filedocumented in this encounter Additional Health Concerns Assessment Noted Time PHQ-9 Depression Total Score: 3 02/20/20 25 2:20 PM EDT documented as of this encounter Care Teams Skein Tier Relationship Specialty Start Date End Date Eulalia De Los Santos NP [address] [place] [address] PCP - General Family Medicine 12/31/23 documented as of this encounter
--- OUTSIDE RECORDS SUMMARY | 2025-05-01 09:13 | XMS_ITS | Encounter Summary ---
Author Organization [employer] Address [address] [place] [address] Care Team Providers Care Senior Reservations Agent Name Role Phone Eulalia De Los Santos NP Primary Care Provider [phone] Reason for Visit * Reason Onset Date Comments Med Refill 10/10/2024 Encounter Details Date Type Department Care Team ([facility] st Contact Info) Description 10/10/2024 Telephone [facility] [address] [place] [address] Eulalia De Los Santos NP [address] [place], [place] [phone] Med Refill Social History Tobacco Use Types [...] 11:01 AM EDT Medications were sent to [facility] on 08/17/24 90 day supply. * Telephone Encounter - Ellen Buenrostro - 10/10/2024 10:54 AM EDT TC from pt son requesting medication refill. Medications needing refill : levothyroxine (Synthroid, Levoxyl) 100 MCG tablet pravastatin (Pravachol) 80 MG tablet To be sent to: [facility] - [place], [place] - [address] documented in this encounter Plan of Treatment Upcoming Encounters Date Type Department Care Team (Late st Contact Info) Description 06/11/2025 2:30 PM EST Office Visit [facility] [address] [place] [address] Eulalia De Los Santos NP [address] [place] [address] documented as of this encounter Visit Diagnoses Not on filedocumented in this encounter Additional Health Concerns Assessment Noted Time PHQ-9 Depression Total Score: 0 01/02/20 9:56 AM EDT documented as of this encounter Care Teams Senior Reservations Agent Relationship Specialty Start Date End Date Eulalia De Los Santos NP [address] [place] [address] PCP - General Family Medicine 12/31/23 documented as of this encounter
--- OUTSIDE RECORDS SUMMARY | 2025-05-01 09:13 | XMS_ITS | Encounter Summary ---
Author Organization [employer] Address [address] [facility] [address] [place] [address] Care Team Providers Care Mail Handler Name Role Phone Eulalia De Los Santos NP Primary Care Provider [phone] Reason for Visit * Reason Comments Med Refill Encounter Details Date Type Department Care Team ([facility] st Contact Info) Description 04/20/[address] [facility] MEDICINE [address] [place] [address] Anahi Mccallum FNP [address] [place] [address] Hypothyroidism, unspecified type Social History Tobacco Use [...] the past 12 months, has t he [employer], gas, oil or water company threatened to [...] Description 06/11/2025 2:30 PM EST Office Visit [facility] MEDICINE [address] [place] [address] Eulalia De Los Santos NP [address] [place] [address] documented as of this encounter Visit Diagnoses Diagnosis Hypothyroidism, unspecified type documented in this encounter Additional Health Concerns Assessment Noted Time PHQ-9 Depression Total Score: 0 01/02/20 23 9:56 AM EDT documented as of this encounter Care Teams Mail Handler Relationship Specialty Start Date End Date Eulalia De Los Santos NP [address] [place] [address] PCP - General Family Medicine 12/31/23 documented as of this encounter
--- OUTSIDE RECORDS SUMMARY | 2025-05-01 09:13 | XMS_ITS | Encounter Summary ---
Author Organization [employer] Address 75 [facility] 7t [place] [address] Care Team Providers Care Rubber Worker Name Role Phone Anahi Mccallum Primary Care Provider [phone] Eulalia De Los Santos NP Primary Care Provider [phone] Encounter Details Date Type Department Care Team (Latest Contact Info) Description 07/06/2018 Abstract [facility] CONVERSIONS Dental, Provider, DDS Social History [...] Description 06/11/2025 2:30 PM EST Office Visit [facility] MEDICINE [address] [place] [address] Eulalia De Los Santos NP [address] [place] [address] documented as of this encounter Visit Diagnoses Not on filedocumented in this encounter Care Teams Rubber Worker Relationship Specialty Start Date End Date Anahi Mccallum FNP [address] [place] [address] PCP - General Family Medicine 02/20/22 12/30/23 Eulalia De Los Santos NP [address] [place] [address] PCP - General Family Medicine 12/31/23 documented as of this encounter
--- OUTSIDE RECORDS SUMMARY | 2025-05-01 09:13 | XMS_ITS | Encounter Summary ---
Author Organization [employer] Address [address] [facility] [address] [place] [address] Care Team Providers Care District Ranger Name Role Phone Eulalia De Los Santos NP Primary Care Provider [phone] Reason for Visit * Reason Comments Med Refill Encounter Details Date Type Department Care Team ([facility] Contact Info) Description 09/15/2024 Refill [facility] MEDICINE [address] [place], [place] [phone] Eulalia De Los Santos NP [address] [place], [place] [phone] Hypothyroidism, unspecified type Social History Tobacco Use [...] Description 06/11/2025 2:30 PM EST Office Visit [facility] [address] [place] [address] Eulalia De Los Santos NP [address] [place] [address] documented as of this encounter Visit Diagnoses Diagnosis Hypothyroidism, unspecified type documented in this encounter Additional Health Concerns Assessment Noted Time PHQ-9 Depression Total Score: 0 01/02/20 23 9:56 AM EDT documented as of this encounter Care Teams District Ranger Relationship Specialty Start Date End Date Eulalia De Los Santos NP [address] [place] [phone] PCP - General Family Medicine 12/31/23 documented as of this encounter
--- OUTSIDE RECORDS SUMMARY | 2025-05-01 09:13 | XMS_ITS | Clinical Summary ---
Author Organization [employer] Address [address] [facility] [address] [address] 7[address] [place] [address] Care Team Providers Care Innovation Analyst Name Role Phone Eulalia De Los Santos NP Primary Care Provider [phone] Allergies Active Allergy Reactions Criticality Noted Date [...] Hypercholesterolemia 03/11/2015 Hypothyroidism 03/11/2015 Assessment & Plan (04/26/2025 3:25 PM EST): Orders: levothyroxine (Synthroid, Levoxyl) 100 [...] Description 04/24/2025 2:45 PM EST Procedure Visit [address] [phone] Eulalia De Los Santos NP Cervical cancer screening (Primary Dx); Hypothyroidism, unspecified type; Hyperlipidemia, unspecified hyperlipidemia type 04/24/2025 Travel 04/23/2025 Telephone [facility] [address] [place] [address] Abbi Selby [place] 04/23/2025 Telephone [facility] MEDICINE [address] [place] [address] Eulalia De Los Santos NP appointment time change 03/13/2025 Refill [facility] [address] [place] [address] Eulalia De Los Santos NP 02/26/2025 Results Follow-Up [facility] MED[facility] [address] [place] [address] Corrina Qiu RN Lipid Panel, Standard, Comprehensive Metabolic Panel, Hemoglobin A1c, Additional followed-up results: 2 02/19/2025 2:00 PM EDT Office Visit [facility] MED[facility]INE [address] [place] [address] Eulalia De Los Santos NP Hypothyroidism, unspecified type (Primary Dx); Undifferentiated schizophrenia (CMS/HCC) (HCC); Gastroesophageal reflux disease with esophagitis, unspecified whether hemorrhage; Malignant neoplasm of female breast, unspecified estrogen receptor status, unspecified laterality, unspecified site of breast (HCC); Healthcare maintenance; Encounter for vaccination; Encounter for immunization 02/19/2025 Travel 02/16/2025 Telephone [facility] [address] [place] [address] Javid Alcazar [place] chart prep 02/12/2025 Patient Outreach [facility] [address] [place], [place] [phone] Eulalia De Los Santos NP Pre-visit Planning ([facility] unable to reach [facility] ) from Last 3 Months Immunizations Immunization [...] Description 06/11/2025 2:30 PM EST Office Visit [facility] MED[facility]INE [address] [place], [place] [phone] Eulalia De Los Santos NP [address] [place], [place] [phone] Health Maintenance Due Date Last Done Comments CT Colonography 1962 FIT DNA/Cologuard 1962 FIT 1962 FOBT 1962 HIV Screening 1962 Sigmoidoscopy 1962 Hepatitis C Screening 02/11/1980 Pneumococcal Vaccine: 50+ Years (1 of 1 - PCV) 02/11/2012 Pap Smear 10/12/2023 10/11/2018 Alcohol/Substance Use Screening 02/19/2026 02/19/2025 Depression Screening 02/19/2026 02/19/2025, 02/20/20 25 Disability Screening 02/19/2026 02/19/2025 SDOH Screening 02/19/2026 02/19/2025 Diabetes: Hemoglobin A1C 02/21/2026 025, 09/24/2021, 07/30/2020, Additional history exists Tobacco Screening 04/24/2026 04/24/2025 Colonoscopy 07/02/2026 07/02/2016 Colorectal Cancer Screening 07/02/2026 Lipid Panel 02/21/2030 02/21/2025, 12/15, 09/24/2021, Additional history exists Cervical Cancer Screening 04/24/2030 HPV/Cotest 04/24/2030 04/24/2025, 09/15, 10/11/2018 DTaP/Tdap/Td Vaccines (3 - Td or Tdap) [...] Procedure Name Priority Date/Time Associated Diagnosis Comments HPV DNA, LOW/HIGH RISK Routine 04/24/2025 3:26 PM EST Cervical cancer screening CBC WITH AUTO DIFFERENTIAL Routine 02/21/2025 8:21 AM EDT Healthcare maintenance TSH STAT 02/21/2025 8:21 AM EDT Hypothyroidism, unspecified type HEMOGLOBIN A1C Routine 02/21/2025 8:21 AM EDT Undifferentiated schizophrenia (CMS/HCC) (HCC) COMPREHENSIVE METABOLIC PANEL Routine 02/21/2025 8:21 AM EDT Undifferentiated schizophrenia (CMS/HCC) (HCC) LIPID PANEL, STANDARD Routine 02/21/2025 8:21 AM EDT Undifferentiated schizophrenia (CMS/HCC) (HCC) PAP/HPV Routine 10/11/2018 COLONOSCOPY Routine 07/02/2016 9:20 AM EST from Last 3 Months or Most Recently Relevant to Health Maintenance Results * HPV High Risk with Reflex to Subtypes (04/24/2025 3:26 PM EST) HPV High Risk Negative Negative [facility] HPV Genotype 16 Negative Negative [facility] HPV Genotype 18 Negative Negative [facility] Comment:HPV testing performe d at [facility] (CLIA#[id number]), [address] [place] [address].Testing for HPV was performed using the [employer] E[employer]IEL 6800system. The presence of HPV in the female genital tract isassociated with a number of diseases, including cervicalcarcinoma. The HPV DNA high risk pool tests for HPV 31, 33,35, 39, 45, 51, 52, 56, 58, 59, 66 and 68. The testing forHPV 16 and 18 genotypes has also been performed. A positiveresult indicates detection of nucleic acid sequences fromone or more subtypes, whereas a negative result indicatessuch sequences were not detected. Pap Vial 04/24/2025 3:26 PM EST 04/25/2025 11:16 AM EST us Eulalia De Los Santos NP LAB BLOOD ORDERABLES Final Resul t [facility] [address] [place] [phone] * (ABNORMAL) CBC auto differential (02/21/2025 8:21 AM EDT) White Blood Count 7.9 4.8 - 10.8 X10*3/uL [facility] Red Blood Count 5.31 4.20 - 5.50 X10*6/uL [facility] Hemoglobin 13.0 12.0 - 16.0 g/dl [facility] Hematocrit 40.2 37.0 - 47.0 % [facility] Mean Corpuscular Volume 75.7(L) 80.0 - 98.0 fL [facility] Mean Corpuscular Hemoglobin 24.5(L) 27.0 - 33.0 pg [facility] Mean Corpuscular HGB Conc 32.3 31.0 - 35.0 g/dl [facility] Red Cell Distribution Width 14.6 11.0 - 16.0 % [facility] Platelet Count 313 160 - 400 X10*3/uL [facility] Mean Platelet Volume 9.7 9.4 - 12.3 fL [facility] Neutrophils Percent Auto 50.2 45 - 73 % [facility] Imm Gran Pct Auto 0.3 0.0 - 0.4 % [facility] Lymphocytes Percent Auto 39.0 20 - 40 % [facility] Monocytes Percent Auto 7.4 2 - 11 % [facility] Eosinophils Percent Auto 2.7 0 - 4 % [facility] Basophils Percent Auto 0.4 0 - 2 % [facility] NRBC Pct Auto 0.0 0.0 - 0.2 /100WBC [facility] Neutrophils Absolute Auto 4.0 2.0 - 8.3 x10*3/uL [facility] Imm Gran Abs Auto 0.02 0.00 - 0.03 X10*3/uL [facility] Lymphocytes Absolute Auto 3.1 1.2 - 4.9 X10*3/uL [facility] Monocytes Absolute Auto 0.6 0.1 - 1.2 X10*3/uL [facility] Eosinophils Absolute Auto 0.2 0.0 - 0.4 X10*3/uL [facility] Basophils Absolute Auto 0.0 0.0 - 0.2 X10*3/uL [facility] NRBC Abs Auto 0.000 0.0 - 0.012 X10*3/uL [facility] Blood Venous blood specimen / Unknown 02/21/2025 8:21 AM EDT 02/21/2025 8:21 AM EDT us Eulalia Magali BURNISHING MACHINE OPERATOR LAB BLOOD ORDERABLES Final Resul t Performing Organization Address [facility] Co de Phone Number [facility] [address] [place] [phone] * (ABNORMAL) TSH (02/21/2025 8:21 AM EDT) Thyroid Stimulating Hormone 11.00(H) 0.32 - 4.0 uIU/mL [facility] Comment:Note: A sustained TS H level above 2.5 uIU/mL may warrant further investigation. TSH 3rd Generation ([facility]) Blood Venous blood specimen / Unknown 02/21/2025 8:21 AM EDT 02/21/2025 8:21 AM EDT us Eulalia De Los Santos BURNISHING MACHINE OPERATOR LAB BLOOD ORDERABLES Final Resul t Performing Organization Address [facility] de Phone Number [facility] [address] [place] [phone] * Hemoglobin A1c (02/21/2025 8:21 AM EDT) Hemoglobin A1c 5.8 <6.0 % [facility] Comment:Hemoglobin A1C Refer ence Range Adults: 4.8 - 6.0 % Non diabetic: < 6.0 % Goal: < 7.0 %Additional Action Suggested: > 8.0 %Note: Hemoglobin A1c results are invalid for patients with abnormal amounts of HbF. Blood transfusions may impact the HbA1c concentration in the patient sample. Estimated Average Glucose 120 mg/dL [facility] Comment:eAG = Estimated ave rage glucose which is %A1C expressed asaverage glucose, using the formula of the G2M-NetrybjHqruxdr Glucose study (ADAG), Diabetes Care, Vol.31,#8,Dec. 2007 Blood Venous blood specimen / Unknown 02/21/2025 8:21 AM EDT 02/21/2025 8:21 AM EDT us Eulalia De Los Santso BURNISHING MACHINE OPERATOR LAB BLOOD ORDERABLES Final Resul t Performing Organization Address [facility] de Phone Number [facility] [address] [place] [address] [phone] * (ABNORMAL) Lipid Panel, Standard (02/21/2025 8:21 AM EDT) Triglycerides 77 <150 mg/dL [facility] Comment:Desirable Triglyceri de: less than 150 mg/dLBorderline High Triglyceride 150-199 mg/dLHigh Triglyceride: 200-499 mg/dLVery High Triglyceride: greater than or equal to 5OO mg/dL Cholesterol 229(H) <200 mg/dL [facility] Comment:Desirable Cholestero l: less than 200 mg/dLBorderline High Cholesterol: 200-239 mg/dLHigh Cholesterol: greater than 239 mg/dL LDL Cholesterol Calculated 159(H) <100 mg/dL [facility] Comment:Desirable LDL: less than 100 mg/dLNear Optimal/Above Optimal LDL: 110- 129 mg/dLBorderline High LDL: 130-159 mg/dLHigh LDL: 160-189 mg/dLVery High LDL: greater than or equal to 190 mg/dL HDL Cholesterol 55 >40 mg/dL [facility] Comment:Desirable HDL: great er than 40 mg/dL Note: This HDL assay may give artificially low results in patients with liver disease. Blood Venous blood specimen / Unknown 02/21/2025 8:21 AM EDT 02/21/2025 8:21 AM EDT us Eulalia De Los Santos BURNISHING MACHINE OPERATOR LAB BLOOD ORDERABLES Final Resul t Performing Organization Address [facility] Co de Phone Number [facility] [address] [place] [address] [phone] * (ABNORMAL) Comprehensive Metabolic Panel (02/21/2025 8:21 AM EDT) Sodium 142 135 - 145 mmol/L [facility] Potassium 4.2 3.3 - 5.1 mmol/L [facility] Chloride 109(H) 96 - 108 mmol/L [facility] Carbon Dioxide 25 22 - 29 mmol/L [facility] Anion Gap 12 12 - 20 [facility] Urea Nitrogen (BUN) 17(H) 9 - 16 mg/dL [facility] Creatinine, Serum 0.74 0.5 - 1.4 mg/dL [facility] Estimated Glomerular Filt Rate >60 [facility] Comment:Chronic Kidney Disea se: Estimated GFR < 60 mL/min/[id number] Kidney Disease: Estimated GFR < 15 mL/min/1.73m2 Glucose 99 60 - 115 mg/dL [facility] Calcium 9.6 8.4 - 10.2 mg/dL [facility] Bilirubin, Total 0.3 0.0 - 1.0 mg/dL [facility] Aspartate Amino Transferase 33(H) 5 - 31 U/L [facility] Alanine Aminotransferase 27 0 - 31 U/L [facility] Total Protein 7.3 6.5 - 8.0 g/dL [facility] Albumin Level 4.7 3.5 - 5.0 g/dL [facility] Alkaline Phosphatase 103 39 - 117 U/L [facility] Blood Venous blood specimen / Unknown 02/21/2025 8:21 AM EDT 02/21/2025 8:21 AM EDT us Eulalia De Los Santos BURNISHING MACHINE OPERATOR LAB BLOOD ORDERABLES Final Resul t [facility] [address] [place] [address] [phone] * Hm Pap Smear (10/11/2018) Pap Negative for intraephithelial lesion or malignancy Negative for intraephithelial lesion or malignancy, Other HPV Undetected 10/11/2018 us Historical Provider HEALTH MAINTENANCE Final Result * Hm Colonoscopy (07/02/2016 9:20 AM EST) Colonoscopy Normal Normal Narrative An Francis - 07/02/2016 9:20 AM EST Recommended 10 year follow up us Historical Provider HEALTH MAINTENANCE Edited Result - Final from Last 3 Months or Most Recently Relevant to Health Maintenance Insurance [employer] Care Teams Innovation Analyst Relationship Specialty Start Date End Date Eulalia De Los Santos NP [address] [place] [address] PCP - General Family Medicine 12/31/23
--- OUTSIDE RECORDS SUMMARY | 2025-05-01 09:13 | XMS_ITS | Encounter Summary ---
Author Organization [employer] Address [address] [facility] [address] [place] [address] Care Team Providers Care Associate Professor Of Archaeology Name Role Phone Eulalia De Los Santos NP Primary Care Provider [phone] Reason for Visit * Reason Comments Med Refill Encounter Details Date Type Department Care Team ([facility] Contact Info) Description 04/10/2024 Refill [facility] MED[facility] [address] [place] [address] Anahi Mccallum FNP [address] [place] [address] Social History Tobacco Use Types Packs/Day Years [...] Description 06/11/2025 2:30 PM EST Office Visit [facility] [address] [place] [address] Eulalia De Los Santos NP [address] [place] [address] documented as of this encounter Visit Diagnoses Not on filedocumented in this encounter Additional Health Concerns Assessment Noted Time PHQ-9 Depression Total Score: 0 01/02/20 23 9:56 AM EDT documented as of this encounter Care Teams Associate Professor Of Archaeology Relationship Specialty Start Date End Date Eulalia De Los Santos NP [address] [place] [address] PCP - General Family Medicine 12/31/23 documented as of this encounter
--- OUTSIDE RECORDS SUMMARY | 2025-05-01 09:13 | XMS_ITS | Encounter Summary ---
Author Organization [employer] Address 75 [facility] 7t [place] [address] Care Team Providers Care Boat Worker Name Role Phone Anahi MccallumP Primary Care Provider [phone] Eulalia De Los Santos NP Primary Care Provider [phone] Reason for Visit * Reason Onset Date Comments Referral 12/28/2023 Encounter Details Date Type Department Care Team (Late st Contact Info) Description 12/28/2023 Telephone [facility] [address] [place] [address] Anahi Mccallum FNP [address] [place] [address] Referral Social History Tobacco Use Types Packs/Day [...] Givers in order to continue 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 does not see any referrals on chart documented in this encounter Plan of Treatment Upcoming Encounters Date Type Department Care Team (Late st Contact Info) Description 06/11/2025 2:30 PM EST Office Visit [facility] [address] [place] [address] Eulalia De Los Santos NP [address] [place] [address] documented as of this encounter Visit Diagnoses Not on filedocumented in this encounter Additional Health Concerns Assessment Noted Time PHQ-9 Depression Total Score: 0 01/02/20 9:56 AM EDT documented as of this encounter Care Teams Boat Worker Relationship Specialty Start Date End Date Anahi Mccallum FNP [address] [place] [address] PCP - General Family Medicine 02/20/22 12/30/23 Eulalia De Los Santos NP [address] [place] [address] PCP - General Family Medicine 12/31/23 documented as of this encounter
--- OUTSIDE RECORDS SUMMARY | 2025-05-01 09:13 | XMS_ITS | Encounter Summary ---
Author Organization [employer] Address 75 [facility] 7t [place] [address] Care Team Providers Care Federal Aid Coordinator Name Role Phone Anahi Mccallum Primary Care Provider [phone] Eulalia De Los Santos NP Primary Care Provider [phone] Encounter Details Date Type Department Care Team (Late st Contact Info) Description 10/29/2022 Abstract [facility] MEDICINE [address] [place] [phone] Anahi Mccallum FNP [address] [place] [address] Social History Tobacco Use Types Packs/Day Years [...] Description 06/11/2025 2:30 PM EST Office Visit [facility] MED[facility] [address] [place] [address] Eulalia De Los Santos NP [address] [place], [place] [phone] documented as of this encounter Procedures Procedure [...] on filedocumented in this encounter Care Teams Federal Aid Coordinator Relationship Specialty Start Date End Date Anahi Mccallum FNP [address] [place] [address] PCP - General Family Medicine 02/20/22 12/30/23 Eulalia De Los Santos NP [address] [place] [address] PCP - General Family Medicine 12/31/23 documented as of this encounter
--- OUTSIDE RECORDS SUMMARY | 2025-05-01 09:13 | XMS_ITS | Encounter Summary ---
Author Organization [employer] Address [address] [place] [address] Care Team Providers Care Time Broker Name Role Phone Anahi Mccallum Primary Care Provider [phone] Eulalia De Los Santos NP Primary Care Provider [phone] Encounter Details Date Type Department Care Team (Late Contact Info) Description 01/05/2023 Orders Only [facility] [address] [place] [address] Anahi Mccallum FNP [address] [place] [address] Right ankle pain, unspecified chronicity (Primary Dx) [...] Description 06/11/2025 2:30 PM EST Office Visit [facility] [address] [place] [address] Eulalia De Los Santos NP [address] [place] [address] documented as of this encounter Procedures Procedure [...] (FISHMAN) (02/01/2023 9:14 PM EDT) IDNOW SERIAL# [id number] [facility] COVID-19 TEST Negative Negative [facility] COVID-19 NOTE See Note [facility] Comment: Results are for the identification of SARS-CoV2 RNA. TheSARS-CoV2 RNA is generally detectable in respiratory samplesduring the acute phase of infection. Positive results areindicative of the presence of SARS-CoV-2 RNA; clinicalcorrelation with patient history and other diagnosticinformation is necessary to determine patient infectionstatus. Positive results do not rule out bacterial infectionor co- infection with other viruses.Testing facilities within the [place] and [facility] are required to report all positive results [...] use by authorized laboratories.Testing performed on the [employer] NOW utilizing NAAT. 02/01/2023 9:14 PM EDT 02/01/2023 9:32 PM EDT [facility] Exter nal Provider LAB MOLECULAR DIAGNOSTICS ORDERABLES Final Result Performing Organization Address City/[facility] Co de Phone Number [facility] [address] [place] [phone] * Acetaminophen level (02/01/2023 4:27 PM EDT) [facility] Acetaminophen LAB <17 <30 mcg/mL [facility] 02/01/2023 4:27 PM EDT 02/01/2023 4:32 PM EDT Generic External Data Provider LAB BLOOD ORDERAB LES Final Result Performing Organization Address [facility] Co de Phone Number [facility] [address] [place] [address] [phone] * (ABNORMAL) Salicylate (02/01/2023 4:27 PM EDT) Salicylate <5.0(L) 15 - 30 mg/dL [facility] 02/01/2023 4:27 PM EDT 02/01/2023 4:32 PM EDT [facility] External Provider LAB BLO OD ORDERABLES Final Result Performing Organization Address [facility] Co de Phone Number [facility] [address] [place] [address] [phone] * Ethanol (02/01/2023 4:27 PM EDT) ETHANOL (MG/DL) IN SER/PLAS <10 mg/dL [facility] Comment:Serum/plasma ethanol results are to be used formedical/treatment purposes only. 02/01/2023 4:27 PM EDT 02/01/2023 4:32 PM EDT Generic External Data Provider LAB BLOOD ORDERAB LES Final Result Performing Organization Address [facility] de Phone Number [facility] [address] [place] [address] [phone] * (ABNORMAL) Comprehensive Metabolic Panel (02/01/2023 4:27 PM EDT) Sodium 139 135 - 145 mmol/L [facility] Potassium 3.5 3.3 - 5.1 mmol/L [facility] Chloride 105 96 - 108 mmol/L [facility] Carbon Dioxide 27 22 - 29 mmol/L [facility] Anion Gap 11(L) 12 - 20 [facility] Urea Nitrogen (BUN) 10 9 - 16 mg/dL [facility] Creatinine, Serum 0.78 0.5 - 1.4 mg/dL [facility] Creatinine Clr Calc Pharmacy 82.0 [facility] Comment:Provided height and weight: 165.1 cm,83.915 kg.eGFR (calculated from the MDRD study equation) and eCrCl(calculated from the Cockcroft-Gault equation) are based ondifferent parameters and may not yield comparable results.If eCrCl result is absurd, please check patient'sheight/weight. Estimated Glomerular Filt Rate >60 [facility] Comment:NOTE: For -Am erican individuals, multiply the result by 1.210.Chronic Kidney Disease: Estimated GFR < 60 mL/min/1.96z5Ltycst Kidney Disease: Estimated GFR < 15 mL/min/1.73m2 Glucose 128(H) 60 - 115 mg/dL [facility] Calcium 9.9 8.4 - 10.2 mg/dL [facility] Bilirubin, Total 0.2 0.0 - 1.0 mg/dL [facility] Aspartate Amino Transferase 24 5 - 31 U/L [facility] Alanine Aminotransferase 24 0 - 31 U/L [facility] Total Protein 7.5 6.5 - 8.0 g/dL [facility] Albumin Level 4.6 3.5 - 5.0 g/dL [facility] Alkaline Phosphatase 97 39 - 117 U/L [facility] 02/01/2023 4:27 PM EDT 02/01/2023 4:32 PM EDT us [facility] External Provider LAB BLO OD ORDERABLES Final Result [facility] [address] [place] [phone] * (ABNORMAL) CBC auto differential (02/01/2023 4:27 PM EDT) White Blood Count 7.4 4.8 - 10.8 X10*3/uL [facility] Red Blood Count 5.83(H) 4.20 - 5.50 X10*6/uL [facility] Hemoglobin 14.0 12.0 - 16.0 g/dl [facility] Hematocrit 44.1 37.0 - 47.0 % [facility] Mean Corpuscular Volume 75.6(L) 80.0 - 98.0 fL [facility] Mean Corpuscular Hemoglobin 24.0(L) 27.0 - 33.0 pg [facility] Mean Corpuscular HGB Conc 31.7 31.0 - 35.0 g/dl [facility] Red Cell Distribution Width 15.0 11.0 - 16.0 % [facility] Platelet Count 320 160 - 400 X10*3/uL [facility] Mean Platelet Volume 9.8 9.4 - 12.3 fL [facility] Neutrophils Percent Auto 64.3 45 - 73 % [facility] Imm Gran Pct Auto 0.4 0.0 - 0.4 % [facility] Lymphocytes Percent Auto 28.4 20 - 40 % [facility] Monocytes Percent Auto 4.8 2 - 11 % [facility] Eosinophils Percent Auto 1.7 0 - 4 % [facility] Basophils Percent Auto 0.4 0 - 2 % [facility] NRBC Pct Auto 0.0 0.0 - 0.2 /100WBC [facility] Neutrophils Absolute Auto 4.8 2.0 - 8.3 x10*3/uL [facility] Imm Gran Abs Auto 0.03 0.00 - 0.03 X10*3/uL [facility] Lymphocytes Absolute Auto 2.1 1.2 - 4.9 X10*3/uL [facility] Monocytes Absolute Auto 0.4 0.1 - 1.2 X10*3/uL [facility] Eosinophils Absolute Auto 0.1 0.0 - 0.4 X10*3/uL [facility] Basophils Absolute Auto 0.0 0.0 - 0.2 X10*3/uL [facility] NRBC Abs Auto 0.000 0.0 - 0.012 X10*3/uL [facility] 02/01/2023 4:27 PM EDT 02/01/2023 4:32 PM EDT us [facility] External Provider LAB BLO OD ORDERABLES Final Result [facility] [address] [place] [phone] * Drug Monitoring, Panel 1, Screen, Urine (02/01/2023 4:03 PM EDT) Opiate Screen Urine Not Detected Not Detect [facility] Comment:Opiate cut-off is 30 0 ng/mL.Positive results are unconfirmed and should not be used fornon-medical purposes. Barbiturates, Urine Not Detected Not Detect [facility] Comment:Barbiturate cut-off is 200 ng/mL.Positive results are unconfirmed and should not be used fornon-medical purposes. Phencyclidine Screen Urine Not Detected Not Detect [facility] Comment:Phencyclidine cut-of f is 25 ng/mL.Positive results are unconfirmed and should not be used fornon-medical purposes. Amphetamine Screen Urine Not Detected Not Detect [facility] Comment:Amphetamine cut-off is 1000 ng/mL.Positive results are unconfirmed and should not be used fornon-medical purposes. Benzodiazepines Screen Urine Not Detected Not Detect [facility] Comment:Benzodiazepine cut-o ff is 200 ng/mL.Positive results are unconfirmed and should not be used fornon-medical purposes. Cocaine Screen Urine Not Detected Not Detect [facility] Comment:Cocaine cut-off is 3 00 ng/mL.Positive results are unconfirmed and should not be used fornon-medical purposes. Cannabinoid Screen Urine Not Detected Not Detect [facility] Comment:Cannabinoid cut-off is 50 ng/mL.Positive results are unconfirmed and should not be used fornon-medical purposes. FENTANYL URINE Not Detected Not Detect [facility] Comment:Fentanyl cut-off is 1 ng/mL.Positive results are unconfirmed and should not be used fornon-medical purposes. 02/01/2023 4:03 PM EDT 02/01/2023 4:15 PM EDT us [facility] External Provider LAB URI NE ORDERABLES Final Result [facility] [address] [place] [address] [phone] * (ABNORMAL) Urinalysis, Complete, with Reflex to Culture (02/01/2023 4:03 PM EDT) Color Urine Yellow [facility] Appearance Urine Clear [facility] PH 5.5 5.0 - 9.0 [facility] Glucose Urine UA Negative Negative mg/dL [facility] Urine Blood Negative Negative [facility] Specific Lasara - Urine 1.010 1.005 - 1.025 [facility] Urine Protein Negative Neg-Trace mg/dL [facility] Urine Ketones Negative Negative mg/dL [facility] Nitrite Urine Negative Negative [facility] Leukocyte Esterase Urine Trace(A) Negative [facility] RBC Urine 0-2 0 - 2 /HPF [facility] Urine WBC 0-5 0 - 5 /HPF [facility] Urine Squamous Epithelial Cell 0-2 0 - 2 /HPF [facility] Urine Bacteria None Seen None Seen [facility] Hyaline Casts, Urine 0-2 0 - 2 /LPF [facility] 02/01/2023 4:03 PM EDT 02/01/2023 4:15 PM EDT Narrative [facility] - 02/01/2023 4:38 PM EDT [id number], [employer] Catch us [facility] External Provider LAB URI NE ORDERABLES Final Result [facility] [address] [place] [address] [phone] documented in this encounter Visit Diagnoses Diagnosis Right ankle pain, unspecified chronicity- Primary documented in this encounter Additional Health Concerns Assessment Noted Time PHQ-9 Depression Total Score: 0 01/02/20 23 9:56 AM EDT documented as of this encounter Care Teams Time Broker Relationship Specialty Start Date End Date Anahi Mccallum FNP [address] [place] [address] PCP - General Family Medicine 02/20/22 12/30/23 Eulalia De Los Santos NP [address] [place] [address] PCP - General Family Medicine 12/31/23 documented as of this encounter
[2025-05-01 12:54] LABS: Free T4 (Free Thyroxine) 0.99 ng/dL (0.71-1.85)
== END 2025-05-01 08:36 | disposition home or self-care (01) ==
LOC: HO.HHCL 08:35
PROVIDERS: PCP Nurse Practitioner Family; Visit Provider Nurse Practitioner Family
DX: E78.5 Hyperlipidemia, unspecified (principal)
CPT/HCPCS: 36415; 84439; 84443